=== PATIENT | female | born 1950 | race Asian ===

== ENCOUNTER 2017-05-07 09:40 | Outpatient (CLI) | payer MEDICARE, OTHER ==
[2017-05-07 12:55] LABS: HEMOGLOBIN A1C 0.68 g/dL
== END 2017-05-07 09:41 | disposition home or self-care (01) ==
LOC: LAB.WCP 09:40
PROVIDERS: ATTEND Family Medicine
DX: E11.9 Type 2 diabetes mellitus without complications (principal)
CPT/HCPCS: 36415; 83036

== ENCOUNTER 2018-04-12 08:00 | Outpatient (CLI) | payer MEDICARE, OTHER ==
[2018-04-12 13:02] LABS: BASOPHILS % (AUTO) 0.9 %; EOSINOPHILS # (AUTO) 0.3 10^3/uL (0.0-0.7); EOSINOPHILS % (AUTO) 6.1 %; HGB - HEMOGLOBIN 12.5 g/dL (12.0-16.0); LYMPHOCYTES # (AUTO) 1.4 10^3/uL (1.5-3.5); LYMPHOCYTES % (AUTO) 25.7 %; MEAN CORPUSCULAR HEMOGLOBIN 28.6 pg (27.0-31.0); MEAN CORPUSCULAR HGB CONC 33.2 g/dL (32.0-36.0); MEAN CORPUSCULAR VOLUME 86.2 fL (81.0-99.0); MEAN PLATELET VOLUME 8.3 fL (7.9-10.8); MONOCYTES # (AUTO) 0.4 10^3/uL (0.0-1.0); MONOCYTES % (AUTO) 6.8 %; NEUTROPHILS # (AUTO) 3.2 10^3/uL (1.5-6.6); NEUTROPHILS % (AUTO) 60.5 %; PLT - PLATELET COUNT 171 10^3/uL (130-450); RED BLOOD COUNT 4.38 10^6/uL (4.20-5.40); RED CELL DISTRIBUTION WIDTH 13.7 % (12.0-15.0); WHITE BLOOD COUNT 5.3 x10^3/uL (4.8-10.8)
[2018-04-12 13:36] LABS: ALBUMIN 4.1 g/dL (3.2-5.5); ALBUMIN/GLOBULIN RATIO 1.2 (1.0-2.2); ALKALINE PHOSPHATASE 44 IU/L (42-121); ALT ALANINE AMINOTRANSFERASE 23 IU/L (10-60); AST ASPARTATE AMINOTRANSFERASE 23 IU/L (10-42); BILIRUBIN,TOTAL 0.7 mg/dL (0.2-1.0); BUN - BLOOD UREA NITROGEN 15 mg/dL (6-20); CARBON DIOXIDE - CO2 26 mmol/L (21-32); CHLORIDE 102 mmol/L (101-111); CHOL/HDL RATIO 3.7 (<4.4); CHOLESTEROL 149 mg/dL; CREATININE 0.8 mg/dL (0.4-1.0); GFR - MDRD 71 (>89); GLUCOSE 126 mg/dL (70-100); HDL CHOLESTEROL 40 mg/dL; LDL CHOLESTEROL,CALCULATED 84 mg/dL; LDL/HDL RATIO 2.1 (<4.4); SODIUM 137 mmol/L (135-145); TOTAL PROTEIN 7.4 g/dL (6.7-8.2); VLDL CHOLESTEROL 25 mg/dL
[2018-04-12 13:49] LABS: HB2 TOTAL 13.5 g/dL; HEMOGLOBIN A1C 0.74 g/dL; HEMOGLOBIN A1C % 7.2 % (4.6-6.2)
== END 2018-04-12 08:01 ==
LOC: LAB.WCP 08:00
PROVIDERS: ATTEND Family Medicine
DX: I10 Essential (primary) hypertension (principal); R73.01 Impaired fasting glucose; E78.9 Disorder of lipoprotein metabolism, unspecified
CPT/HCPCS: 36415; 80053; 80061; 83036; 83721; 85025

== ENCOUNTER 2018-09-10 09:00 | Outpatient (CLI) | payer MEDICARE, OTHER ==
[2018-09-10 13:14] LABS: ALBUMIN 4.1 g/dL (3.2-5.5); ALBUMIN/GLOBULIN RATIO 1.2 (1.0-2.2); BILIRUBIN,TOTAL 0.7 mg/dL (0.2-1.0); CREATININE 0.8 mg/dL (0.4-1.0); TOTAL PROTEIN 7.5 g/dL (6.7-8.2)
[2018-09-10 13:28] LABS: HB2 TOTAL 12.8 g/dL; HEMOGLOBIN A1C 0.7 g/dL; HEMOGLOBIN A1C % 7.2 % (4.6-6.2)
[2018-09-10 14:18] LABS: CALCIUM 8.8 mg/dL (8.5-10.3)
== END 2018-09-10 09:01 | disposition home or self-care (01) ==
LOC: LAB.WCP 09:00
PROVIDERS: ATTEND Family Medicine
DX: E11.9 Type 2 diabetes mellitus without complications (principal)
CPT/HCPCS: 36415; 80053; 82043; 83036

== ENCOUNTER 2018-12-23 06:07 | Day surgery (SDC) | payer MEDICARE, OTHER ==
[2018-12-23] MEDS ORDERED: LACTATED RINGERS 1,000 ML IV ONE (06:32)
[2018-12-23] MEDS ORDERED: MIDAZOLAM 2 MG/2 ML VIAL IVP ONE (08:04)
[2018-12-23] MEDS ORDERED: fentaNYL 250 MCG/5 ML VIAL IVP ONE (08:04)
[2018-12-23 08:40] VITALS: BP 114/69
== END 2018-12-23 06:08 | disposition home or self-care (01) ==
LOC: SDS 06:07
PROVIDERS: ATTEND Surgery
PROC: 0DJD8ZZ Inspection of Lower Intestinal Tract, Via Natural or Artificial Opening Endoscopic (ICD-10-PCS; principal; 2018-12-23 07:30)
DX: Z12.11 Encounter for screening for malignant neoplasm of colon (principal); K64.8 Other hemorrhoids; I10 Essential (primary) hypertension; I25.10 Atherosclerotic heart disease of native coronary artery without angina pectoris
CPT/HCPCS: G0121; J3010; J7120

== ENCOUNTER 2019-04-14 09:38 | Outpatient (CLI) | payer MEDICARE, OTHER ==
[2019-04-14 12:16] LABS: ALBUMIN 4.3 g/dL (3.2-5.5); ALBUMIN/GLOBULIN RATIO 1.3 (1.0-2.2); BILIRUBIN,TOTAL 0.6 mg/dL (0.2-1.0); CALCIUM 9.2 mg/dL (8.5-10.3); CREATININE 0.7 mg/dL (0.4-1.0); TOTAL PROTEIN 7.7 g/dL (6.7-8.2)
[2019-04-14 13:42] LABS: HB2 TOTAL 13.2 g/dL; HEMOGLOBIN A1C 0.66 g/dL; HEMOGLOBIN A1C % 6.7 % (4.6-6.2)
== END 2019-04-14 09:39 | disposition home or self-care (01) ==
LOC: LAB.WCP 09:38
PROVIDERS: ATTEND Family Medicine
DX: E11.9 Type 2 diabetes mellitus without complications (principal); E78.5 Hyperlipidemia, unspecified; I10 Essential (primary) hypertension; I25.10 Atherosclerotic heart disease of native coronary artery without angina pectoris
CPT/HCPCS: 36415; 80053; 82043; 83036

== ENCOUNTER 2019-08-08 09:15 | Outpatient (CLI) | payer MEDICARE, OTHER ==
[2019-08-08 13:00] LABS: HB2 TOTAL 11.9 g/dL; HEMOGLOBIN A1C 0.58 g/dL; HEMOGLOBIN A1C % 6.6 % (4.6-6.2)
[2019-08-08 13:06] LABS: ALBUMIN 4.1 g/dL (3.2-5.5); ALBUMIN/GLOBULIN RATIO 1.2 (1.0-2.2); ALKALINE PHOSPHATASE 49 IU/L (42-121); ALT ALANINE AMINOTRANSFERASE 17 IU/L (10-60); AST ASPARTATE AMINOTRANSFERASE 19 IU/L (10-42); BILIRUBIN,TOTAL 0.5 mg/dL (0.2-1.0); BUN - BLOOD UREA NITROGEN 27 mg/dL (6-20); CALCIUM 9.4 mg/dL (8.5-10.3); CARBON DIOXIDE - CO2 25 mmol/L (21-32); CHLORIDE 106 mmol/L (101-111); CHOL/HDL RATIO 4.1 (<4.4); CHOLESTEROL 161 mg/dL; CREATININE 1.2 mg/dL (0.4-1.0); GFR - MDRD 44 (>89); GLUCOSE 113 mg/dL (70-100); HDL CHOLESTEROL 39 mg/dL; LDL CHOLESTEROL,CALCULATED 90 mg/dL; LDL/HDL RATIO 2.3 (<4.4); SODIUM 139 mmol/L (135-145); TOTAL PROTEIN 7.5 g/dL (6.7-8.2); VLDL CHOLESTEROL 32 mg/dL
== END 2019-08-08 09:16 | disposition home or self-care (01) ==
LOC: LAB.WCP 09:15
PROVIDERS: ATTEND Family Medicine
DX: M17.12 Unilateral primary osteoarthritis, left knee (principal); E11.9 Type 2 diabetes mellitus without complications; I10 Essential (primary) hypertension; I25.10 Atherosclerotic heart disease of native coronary artery without angina pectoris
CPT/HCPCS: 36415; 80053; 80061; 83036; 83721

== ENCOUNTER 2020-01-16 14:29 | Outpatient (CLI) | payer MEDICARE, OTHER ==
--- NOTE | 2020-01-27 16:01 | Mammography Report ---
Reason: ROUTINE MAMMO Procedure Date: 01/16/2020 Accession Number: [id number] / [id number] Procedure: MGN - Screening Mammo w/Varinder CPT Code: Final Report FULL RESULT: EXAM: Screening Mammo w/Varinder DATE: 01/16/2020 3:06 PM CLINICAL HISTORY: Screening encounter. Family history of breast cancer in the mother at the age of 84. TECHNIQUE: (B) - Bilateral CC and MLO views were obtained. Right laterally exaggerated CC view is obtained. COMPARISON: 11/25/2014 through 03/01/2012. PARENCHYMAL PATTERN: (A) - The breast(s) demonstrate(s) scattered fibroglandular densities. FINDINGS: There are no suspicious masses, calcifications, or areas of distortion. IMPRESSION: Negative examination. BI-RADS category 1. RECOMMENDATION: (ANNUAL) - Recommend routine annual screening mammography. BI-RADS CATEGORY: (1) - Negative. STANDARD QUALIFYING STATEMENTS: 1. This examination was not reviewed with the aid of Computer-Aided Detection (CAD). 2. A negative or benign imaging report should not preclude biopsy if clinically suspicious findings are present. 3. Dense breasts may obscure an underlying neoplasm. 4. This examination was reviewed with the aid of 3D breast imaging (tomosynthesis).
== END 2020-01-16 14:30 | disposition home or self-care (01) ==
LOC: DI.N 14:29
DX: Z12.31 Encounter for screening mammogram for malignant neoplasm of breast (principal); Z80.3 Family history of malignant neoplasm of breast
CPT/HCPCS: 77063; 77067

== ENCOUNTER 2020-01-27 08:00 | Outpatient (CLI) | payer MEDICARE, OTHER | END 2020-01-27 23:59 | disposition home or self-care (01) | LOC: LAB.WCP 08:00 | PROVIDERS: ATTEND Family Medicine | DX: N39.0 Urinary tract infection, site not specified (principal) | CPT/HCPCS: 81002; 87086 ==

== ENCOUNTER 2020-01-27 14:30 | Outpatient (CLI) | payer MEDICARE, OTHER | END 2020-01-27 23:59 | disposition home or self-care (01) | LOC: LAB.R 14:30 | PROVIDERS: ATTEND Family Medicine | DX: N39.0 Urinary tract infection, site not specified (principal) | CPT/HCPCS: 87086 ==

== ENCOUNTER 2020-03-26 08:00 | Outpatient (CLI) | payer MEDICARE, OTHER ==
[2020-03-26 13:17] LABS: BASOPHILS % (AUTO) 0.6 %; EOSINOPHILS # (AUTO) 0.2 10^3/uL (0.0-0.7); EOSINOPHILS % (AUTO) 2.4 %; HGB - HEMOGLOBIN 11.8 g/dL (12.0-16.0); LYMPHOCYTES # (AUTO) 1.8 10^3/uL (1.5-3.5); LYMPHOCYTES % (AUTO) 28.3 %; MEAN CORPUSCULAR HEMOGLOBIN 29.6 pg (27.0-31.0); MEAN CORPUSCULAR HGB CONC 32.3 g/dL (32.0-36.0); MEAN CORPUSCULAR VOLUME 91.7 fL (81.0-99.0); MEAN PLATELET VOLUME 10.3 fL (7.9-10.8); MONOCYTES # (AUTO) 0.4 10^3/uL (0.0-1.0); MONOCYTES % (AUTO) 6.8 %; NEUTROPHILS # (AUTO) 3.9 10^3/uL (1.5-6.6); NEUTROPHILS % (AUTO) 61.7 %; PLT - PLATELET COUNT 217 10^3/uL (130-450); RED BLOOD COUNT 3.98 10^6/uL (4.20-5.40); RED CELL DISTRIBUTION WIDTH 12.4 % (12.0-15.0); WHITE BLOOD COUNT 6.3 x10^3/uL (4.8-10.8)
[2020-03-26 13:32] LABS: ALBUMIN 4.2 g/dL (3.2-5.5); ALBUMIN/GLOBULIN RATIO 1.3 (1.0-2.2); BILIRUBIN,TOTAL 0.5 mg/dL (0.2-1.0); CALCIUM 9.2 mg/dL (8.5-10.3); TOTAL PROTEIN 7.5 g/dL (6.7-8.2)
== END 2020-03-26 23:59 | disposition home or self-care (01) ==
LOC: LAB.WCP 08:00
PROVIDERS: ATTEND Family Medicine
DX: I10 Essential (primary) hypertension (principal); E11.9 Type 2 diabetes mellitus without complications; I25.10 Atherosclerotic heart disease of native coronary artery without angina pectoris; E78.5 Hyperlipidemia, unspecified
CPT/HCPCS: 36415; 80053; 84443; 85025

== ENCOUNTER 2020-07-14 15:38 | Outpatient (CLI) | payer MEDICARE, OTHER ==
--- NOTE | 2020-07-14 16:48 | XRAY Report ---
PROCEDURE: Knee Standing BILAT INDICATIONS: BILAT KNEE ARTHRITIS TECHNIQUE: 4 views of the bilateral knees, COMPARISON: Left knee . FINDINGS: Bones: No acute fractures or dislocations. No suspicious bony lesions. Joint spaces appear normal with weightbearing, to a moderately severe degree. This is slightly more prominent at the left knee t shepard the right on the frontal projection. On the lateral view there is mild to moderate patellofemoral joint osteoarthritis.. Soft tissues: No knee joint effusions. No suspicious soft tissue calcification. IMPRESSION: Near severe knee joint osteoarthritis at each medial compartment slightly greater on the left than th e right. No joint effusion or intra-articular loose body is found. Bilateral mild to moderate patello femoral joint osteoarthritis also is present. No trauma found. Reviewed by: Sunday Patel MD on 07/14/2020 4:47 PM PDT Approved by: Sunday Patel MD on 07/14/2020 4:47 PM PDT Station ID: [id number]
== END 2020-07-14 15:39 | disposition home or self-care (01) ==
LOC: DI.N 15:38
PROVIDERS: ATTEND Family Medicine
DX: M17.0 Bilateral primary osteoarthritis of knee (principal)
CPT/HCPCS: 73565

== ENCOUNTER 2020-07-21 11:40 | Outpatient (CLI) | payer MEDICARE, OTHER ==
[2020-07-21 18:41] LABS: HGB - HEMOGLOBIN 11.7 g/dL (12.0-16.0); MEAN CORPUSCULAR HGB CONC 32.7 g/dL (32.0-36.0); MEAN CORPUSCULAR VOLUME 91.8 fL (81.0-99.0); MEAN PLATELET VOLUME 9.7 fL (7.9-10.8); RED BLOOD COUNT 3.9 10^6/uL (4.20-5.40); RED CELL DISTRIBUTION WIDTH 12.6 % (12.0-15.0); WHITE BLOOD COUNT 7.2 x10^3/uL (4.8-10.8)
[2020-07-21 18:51] LABS: BILIRUBIN,URINE NEGATIVE (NEGATIVE); GLUCOSE, URINE (UA) NEGATIVE (NEGATIVE); KETONES,URINE (UA) NEGATIVE (NEGATIVE); LEUKOCYTE ESTERASE, URINE SMALL (NEGATIVE); NITRITE,URINE NEGATIVE (NEGATIVE); OCCULT BLOOD,URINE NEGATIVE (NEGATIVE); PROTEIN,URINE NEGATIVE (NEGATIVE); UROBILINOGEN,URINE 0.2 (NORMAL) E.U./dL (NORMAL)
[2020-07-21 18:52] LABS: CLARITY,URINE CLEAR (CLEAR)
[2020-07-21 18:54] LABS: RHEUMATOID FACTOR NEGATIVE (Negative)
[2020-07-21 18:58] LABS: ALBUMIN 4.2 g/dL (3.2-5.5); ALBUMIN/GLOBULIN RATIO 1.1 (1.0-2.2); ALKALINE PHOSPHATASE 59 IU/L (42-121); ALT ALANINE AMINOTRANSFERASE 19 IU/L (10-60); AST ASPARTATE AMINOTRANSFERASE 20 IU/L (10-42); BILIRUBIN,TOTAL 0.6 mg/dL (0.2-1.0); BUN - BLOOD UREA NITROGEN 18 mg/dL (6-20); CALCIUM 9.5 mg/dL (8.5-10.3); CARBON DIOXIDE - CO2 24 mmol/L (21-32); CHLORIDE 97 mmol/L (101-111); CHOL/HDL RATIO 2.9 (<4.4); CHOLESTEROL 145 mg/dL; CREATININE 0.9 mg/dL (0.4-1.0); GLUCOSE 100 mg/dL (70-100); HDL CHOLESTEROL 50 mg/dL; LDL CHOLESTEROL,CALCULATED 77 mg/dL; LDL/HDL RATIO 1.5 (<4.4); SODIUM 130 mmol/L (135-145); TOTAL PROTEIN 7.9 g/dL (6.7-8.2); URIC ACID 6.5 mg/dL (2.6-7.2); VLDL CHOLESTEROL 18 mg/dL
[2020-07-21 19:01] LABS: CRP - C-REACTIVE PROTEIN < 1.0 mg/dL (0-1.0)
[2020-07-21 19:02] LABS: CREATININE,URINE 98.7 mg/dL; MICROALBUMIN,URINE 0.3 mg/dL (0-300.0)
[2020-07-21 19:20] LABS: HEMOGLOBIN A1c% 6.6 % (4.27-6.07)
[2020-07-21 19:29] LABS: BACTERIA,URINE Many /HPF (None Seen); SQUAMOUS EPITHELIAL CELL,UR FEW Squamous (<= Few); WBC CLUMPS,URINE PRESENT
[2020-07-23 10:57] LABS: ANA SCREEN NEGATIVE (NEGATIVE)
[2020-07-23 13:26] LABS: DNA (DS) ANTIBODY 1 IU/mL
[2020-07-23 18:41] LABS: CYCLIC CITRULL PEPTIDE CCP IGG <16 UNITS
== END 2020-07-21 23:59 | disposition home or self-care (01) ==
LOC: LAB.WCP 11:40
PROVIDERS: ATTEND Family Medicine
DX: E11.9 Type 2 diabetes mellitus without complications (principal); R21 Rash and other nonspecific skin eruption
CPT/HCPCS: 36415; 80053; 80061; 81001; 82043; 82570; 83036; 83721; 84550; 85027; 85651; 86038; 86140; 86200; 86225; 86430

== ENCOUNTER 2021-02-02 08:00 | Outpatient (CLI) | payer MEDICARE, OTHER ==
[2021-02-02 18:18] LABS: BASOPHILS % (AUTO) 0.5 %; EOSINOPHILS # (AUTO) 0.1 10^3/uL (0.0-0.7); EOSINOPHILS % (AUTO) 2.4 %; HCT - HEMATOCRIT 36.8 % (37.0-47.0); HGB - HEMOGLOBIN 11.9 g/dL (12.0-16.0); LYMPHOCYTES # (AUTO) 1.7 10^3/uL (1.5-3.5); LYMPHOCYTES % (AUTO) 28.5 %; MEAN CORPUSCULAR HEMOGLOBIN 29.8 pg (27.0-31.0); MEAN CORPUSCULAR HGB CONC 32.3 g/dL (32.0-36.0); MONOCYTES # (AUTO) 0.4 10^3/uL (0.0-1.0); MONOCYTES % (AUTO) 6.7 %; NEUTROPHILS # (AUTO) 3.6 10^3/uL (1.5-6.6); NEUTROPHILS % (AUTO) 61.7 %; PLT - PLATELET COUNT 194 10^3/uL (130-450); RED CELL DISTRIBUTION WIDTH 12.1 % (12.0-15.0); WHITE BLOOD COUNT 5.8 x10^3/uL (4.8-10.8)
[2021-02-02 18:53] LABS: ESTIMATED AVERAGE GLUCOSE 143 mg/dL (70-100); HEMOGLOBIN A1c% 6.6 % (4.27-6.07)
[2021-02-02 19:06] LABS: ALBUMIN 4.2 g/dL (3.2-5.5); ALBUMIN/GLOBULIN RATIO 1.2 (1.0-2.2); ALKALINE PHOSPHATASE 47 IU/L (42-121); ALT ALANINE AMINOTRANSFERASE 16 IU/L (10-60); AST ASPARTATE AMINOTRANSFERASE 20 IU/L (10-42); BILIRUBIN,TOTAL 0.8 mg/dL (0.2-1.0); BUN - BLOOD UREA NITROGEN 28 mg/dL (6-20); CALCIUM 10.1 mg/dL (8.5-10.3); CARBON DIOXIDE - CO2 29 mmol/L (21-32); CHLORIDE 98 mmol/L (101-111); CHOL/HDL RATIO 3.7 (<4.4); CHOLESTEROL 158 mg/dL; CREATININE 1.1 mg/dL (0.4-1.0); GFR - MDRD 49 (>89); GLUCOSE 93 mg/dL (70-100); HDL CHOLESTEROL 43 mg/dL; LDL CHOLESTEROL,CALCULATED 87 mg/dL; POTASSIUM 4.5 mmol/L (3.5-5.0); SODIUM 137 mmol/L (135-145); TOTAL PROTEIN 7.7 g/dL (6.7-8.2); TRIGLYCERIDES 139 mg/dL; VLDL CHOLESTEROL 28 mg/dL
== END 2021-02-02 23:59 | disposition home or self-care (01) ==
LOC: LAB.WCP 08:00
PROVIDERS: ATTEND Family Medicine
DX: E11.9 Type 2 diabetes mellitus without complications (principal)
CPT/HCPCS: 36415; 80053; 80061; 83036; 83721; 85025

== ENCOUNTER 2021-02-04 11:01 | Outpatient (CLI) | payer MEDICARE, OTHER | END 2021-02-04 11:02 | disposition home or self-care (01) | LOC: LAB.N 11:01 | PROVIDERS: ATTEND Orthopaedic Surgery | DX: Z01.812 Encounter for preprocedural laboratory examination (principal); Z20.822 Contact with and (suspected) exposure to COVID-19 ==

== ENCOUNTER 2021-02-09 07:17 | Day surgery (SDC) | payer MEDICARE, OTHER ==
[~2021-02-09 07:17] MED LIST: ACETAMINOPHEN 1,000 MG/100 ML 100 ML IV ONE; CELECOXIB 100 MG CAPSULE PO ONE; DEXAMETHASONE 10 MG/ML VIAL ONE; ceFAZolin 2 GM/50 ML 2 GM/50 ML BAG IV ONE
[2021-02-09] MEDS ORDERED: LACTATED RINGERS 1,000 ML IV ONE ×2 (07:29→12:04)
[2021-02-09] MEDS ORDERED: VANCOMYCIN 1 GM VIAL ONE ×2 (07:38→08:13)
--- NOTE | 2021-02-09 07:50 | ANESTHESIA ---
Pre-Anesthesia VS, & Labs - Diagnosis Osteoarthritis of knee - Procedure Left Total Knee Arthroscopy Vital Signs: Temp Pulse Resp BP Pulse Ox 36.9 C 61 16 144/67 H 99 02/09/21 07:36 02/09/21 07:36 02/09/21 07:36 02/09/21 07:36 02/09/21 07:36 Height: 5 ft Weight (kg): 66.8 kg Body Mass Index: 28.8 BMI Classification: Overweight - NPO >8 hours - Is Patient ?: No - Lab Results Lab results reviewed: Yes Home Medications and Allergies Aspirin [Jeromy Chewable] 81 mg PO DAILY 08/06/14 Atorvastatin Calcium [Lipitor] 80 mg PO DAILY 08/06/14 Carvedilol [Coreg] 25 mg PO DAILY 08/06/14 Fish Oil/Dha/Epa [Fish Oil 1,200 mg Fish Oil] 1 each PO DAILY 08/06/14 Hydrochlorothiazide 25 mg PO DAILY 08/06/14 Losartan [Cozaar] 100 mg PO DAILY 08/06/14 Truheart 1 cap PO Q2D 04/22/15 SITagliptin [Januvia] 100 mg PO DAILY 12/20/18 metFORMIN [Glucophage] 500 mg PO TID 12/20/18 Allergies/Adverse Reactions: Allergies Allergy/AdvReac Type Severity Reaction Status Date / Time No Known Drug Allergies Allergy Verified 12/23/18 06:39 Anes History & Medical History - Anesthetic History Anesthesia Complications: reports: No previous complications Family history of Anesthesia Complications: Denies Family history of Malignant Hyperthermia: Denies - Medical History Cardiovascular: reports: Hypertension, High cholesterol, Coronary artery disease Pulmonary: reports: None Gastrointestinal: reports: None Urinary: reports: Incontinence Musculoskeletal: reports: Other Endocrine/Autoimmune: reports: Type 2 diabetes Skin: reports: None Smoking Status: Never smoker - Surgical History Cardiothoracic: reports: Coronary stent, Angioplasty Exam General: Alert, Oriented x3, Cooperative, No acute distress Dental: WNL Mouth Openin Fingerbreadth Neck Mobility: Normal Mallampati classification: II Respiratory: Lungs clear, Normal breath sounds, No respiratory distress, No accessory muscle use Cardiovascular: Regular rate, Normal S1, Normal S2, No murmurs Plan Anesthesia Type: Spinal, Adductor Block Regional Block: Per Surgeon's request for Post Op pain control Consent for Procedure(s) Verified and Reviewed: Yes Code Status: Attempt Resuscitation ASA classification: 3-Severe systemic disease Is this case an emergency?: No
[2021-02-09] MEDS ORDERED: HYDROmorphone 0.5 MG/0.5 ML SYRINGE IVP PRN (08:25)
[2021-02-09] MEDS ORDERED: ONDANSETRON 4 MG/2 ML VIAL IVP PRN ×2 (08:25→12:07)
[2021-02-09] MEDS ORDERED: ePHEDrine 50 MG/ML VIAL IVP PRN (08:25)
[2021-02-09] MEDS ORDERED: fentaNYL 100 MCG/2 ML VIAL IVP PRN (08:25)
[2021-02-09] MEDS ORDERED: MORPHINE 2 MG/ML CARPUJECT IVP PRN (08:25)
[2021-02-09] MEDS ORDERED: METOCLOPRAMIDE 10 MG/2 ML VIAL IVP PRN (08:25)
[2021-02-09] MEDS ORDERED: ATROPINE ABBOJECT 1 MG/10 ML SYRINGE IVP PRN (08:25)
[2021-02-09] MEDS ORDERED: NALOXONE 0.4 MG/ML VIAL IVP PRN (08:25)
[2021-02-09] MEDS ORDERED: KETAMINE 500 MG/10 ML VIAL ONE (08:41)
[2021-02-09] MEDS ORDERED: SODIUM CHLORIDE 0.9% 10 ML ONE (08:42)
[2021-02-09] MEDS ORDERED: TRANEXAMIC ACID 1,000 MG/10 ML VIAL ONE ×2 (08:44→11:40)
[2021-02-09] MEDS ORDERED: ONDANSETRON 4 MG/2 ML VIAL ONE ×2 (08:50→09:41)
[2021-02-09] MEDS ORDERED: MIDAZOLAM 2 MG/2 ML VIAL ONE (08:51)
[2021-02-09] MEDS ORDERED: LACTATED RINGERS 1,000 ML IV SCH (09:00)
[2021-02-09] MEDS ORDERED: PROPOFOL 500 MG/50 ML 500 MG/50 ML VIAL ONE (09:41)
[2021-02-09] MEDS ORDERED: ePHEDrine 50 MG/ML VIAL IVP ONE (09:41)
--- NOTE | 2021-02-09 11:41 | OPERATIVE REPORT ---
Operative Report - General Procedure Date: 02/09/21 Planned Procedure: Left total knee arthroplasty Pre-Op Diagnosis: Varus osteoarthritis left knee Procedure Performed: Left total knee arthroplasty using the Davis [employer] Nephew journey 2 cemented cruciate retaining femoral and tibial components: #4 Oxinium femoral component, #3 tibial baseplate, 9 mm deep dish articular polyethylene component, 23 mm by concave patella; Davis [employer] Nephew antibiotic impregnated cement Post Op Diagnosis: Same as preoperative diagnosis - Procedure Note Primary Surgeon: Saul Martin MD Secondary Surgeon: Rickey CHA Anesthesia Provider: Xiomy Garland CRNA Anesthesia Technique: Regional block, Spinal Estimated Blood Loss (mL): 150 Indications: 71-year-old woman with chronic and progressive activity related pain, unresponsive to nonoperative treatment, affecting activities of daily living and quality of life. She had varus deformity with about a 10 to 15 degree flexion contracture to left knee, good stability and strength. The varus deformity was fixed. Her x-rays show complete loss of joint space to the medial compartment of the left knee, relative sparing of the lateral compartment. Findings: There were eburnated bone surfaces to the medial compartment with osteophytes patellofemoral and medial compartment. There was nonspecific synovitis in the suprapatellar pouch. The posterior cruciate was intact. The anterior cruciate was markedly attenuated. The lateral meniscus was torn. Complications: None - Other Other Information/Narrative: Left total knee arthroplasty The patient was brought to the operating room and was placed in a supine position. She was given a adductor canal block by anesthesia. A pneumatic tourniquet was applied to the proximal left thigh over cast padding. This was a conical shaped Avelino thigh tourniquet that was sterile. A bump was placed on the operating room table to facilitate knee flexion of the left knee during surgery. A timeout procedure was performed by the entire operating room team and all were in agreement. A midline longitudinal incision was made with the knee in flexion. A medial parapatellar arthrotomy was made. The anterior horn of medial and lateral menisci were released and part of patellar fat pad was excised. The knee was flexed and the patella was dislocated laterally. A drill hole was made in the intramedullary notch with a 9.5 mm drill. Osteophytes about the proximal tibia and femur had been removed with a rongeur. The distal femoral cutting guide was aligned parallel to the posterior condyles. The intramedullary ross and guide was advanced and the distal femoral guide was stabilized with half pins. The distal 5 degrees valgus cut was made through the distal femoral guide, plus 2mm to compensate for the flexion contracture. Next the extra medullary tibial guide was assembled and applied and aligned to the mechanical axis in both sagittal and coronal planes. Tibial referencing was done to allow 3 mm of bone from the most affected side and 10 mm from the least affected side. The tibial guide was stabilized with half pins. Retractors were placed medially and laterally to protect the collateral ligaments and a retractor was placed directly against the posterior bone to sublux the tibia anteriorly. An oscillating saw was used to make the tibial proximal cut. The tibial block was removed as a single piece and the menisci were removed as well. The extension gap was assessed with a extension block spacer using a 10 mm spacer and this was found to fit well as well as the 9 mm spacer block with the knee in 90 degrees of flexion. Next the femoral positioning guide was applied and aligned to the epicondylar axis and Niharika line. This was secured in place with approximately 3 degrees of external rotation. The size of the femur at the anterior lateral trochlea was a #4. Drill holes were made in the 5 and 1 #4 cutting block was inserted and secured. The 5 cuts were made to the captured block using oscillating saw. The flexion gap was assessed with the 10 mm spacer and was found to fit well. The patella was then prepared. A biconvex patellar reamer was used. The tibial trial #3 was then applied to the tibia and aligned to the mechanical axis. The punch fin was utilized. Trial reduction was performed with the femoral and tibial components in place. Notch resection was then through the trial component. Pulsatile lavage was performed. A tourniquet was applied during the cementing process. The components were inserted sequentially: Tibia, femur and lastly patellar component. Excess cement was removed and the knee was placed in extension during the hardening. Dilute Betadine irrigation was performed. The knee had full range of motion, good patellar tracking. There was good stability of the knee in full extension mid flexion and 90 degrees of flexion. There was good alignment of the left knee. The tourniquet had been deflated and had been in place for 16 minutes. Hemostasis was achieved with electrocautery. Vancomycin powder, 2 g was inserted prior to the deep closure. The deep closure was performed with #2 Ethibond proximal and distal to the patella with the knee in 40 degrees of flexion. 1 O stratofix suture was then used to close the arthrotomy incision. 2-0 Vicryl was used to close the subcutaneous tissue. 3-0 Monocryl was used to do a subcuticular skin closure. Dermabond was applied to the skin incision. After the Dermabond had hardened, a silver impregnated dressing was applied. She tolerated the procedure well and received 2 g of Ancef intravenously and 2 g of tranexamic acid. A physician unit assistant was medically necessary to help with exposure, protection of vital structures, cementing, wound closure and dressing
[2021-02-09] MEDS ORDERED: oxyCODONE 5 MG TABLET PO PRN (12:07)
[2021-02-09] MEDS ORDERED: SODIUM CHLORIDE FLUSH 0.9% 10 ML SYRINGE IVP PRN (12:07)
[2021-02-09] MEDS ORDERED: DOCUSATE SODIUM 100 MG CAPSULE PO PRN (12:07)
[2021-02-09] MEDS ORDERED: HYDROmorphone 1 MG/ML CARPUJECT IVP PRN (12:07)
[2021-02-09] MEDS ORDERED: DEXAMETHASONE 4 MG/ML VIAL ONE (12:13)
--- NOTE | 2021-02-09 13:06 | CONSULTATION NOTE ---
Referring Provider Name of Referring Provider:: Dr. Saul Martin Consult Date: 02/09/21 Chief Complaint - Chief Complaint Chief Complaint: Left knee pain History of Present Illness - Admitted From Admitted From:: Home - History Obtained From Records Reviewed: Yes History obtained from: Patient, Orthopedic surgeon, EMR - History of Present Illness HPI Comment/Other: This is a 71-year-old female with a past medical history significant for coronary artery disease, type 2 diabetes mellitus, hypertension who presents today for a left total knee arthroplasty. This was performed this morning by orthopedic surgery. Medicine was consulted postoperatively to help assist with the patient's medical problems. She reports doing well at this time. She has minimal pain at the left knee. She reports no chest pain, dyspnea. She does have sensation in her left lower extremity is able to move her toes. Reports a history of coronary artery disease with her last stent being over 15 years ago. She is on aspirin daily. She also has hypertension and diabetes which is controlled with Metformin and Januvia. We did discuss goals of care and she would like to be a full code. History - Past Medical History Cardiovascular: reports: Hypertension, High cholesterol, Coronary artery disease Respiratory: reports: None Endocrine/Autoimmune: reports: Type 2 diabetes GI: reports: None : reports: Incontinence Psych: reports: None Musculoskeletal: reports: Other Derm: reports: None MRSA Hx?: No - Past Surgical History Cardiovascular: reports: Coronary stent, Angioplasty - Family & Social History Family History Comment/Other: She reports no family history to her knowledge. Both of her parents are . Living arrangement: At home Living Situation: With family Social History Notes: She lives at home with her and daughter. She is a non-smoker and does not drink alcohol. Meds/Allgy - Home Medications Home Medications: Ambulatory Orders Medication Instructions Recorded Confirmed Atorvastatin Calcium [Lipitor] 80 mg PO DAILY 08/06/14 02/09/21 Carvedilol [Coreg] 25 mg PO BID 08/06/14 02/09/21 Fish Oil/Dha/Epa [Fish Oil 1,200 1 each PO DAILY 08/06/14 02/09/21 mg Fish Oil] Hydrochlorothiazide 25 mg PO DAILY 08/06/14 02/09/21 Losartan [Cozaar] 100 mg PO BID 08/06/14 02/09/21 SITagliptin [Januvia] 100 mg PO DAILY 12/20/18 02/09/21 metFORMIN [Glucophage] 500 mg PO TID 12/20/18 02/09/21 Aspirin EC [Ecotrin] 81 mg PO DAILY 02/09/21 02/09/21 Calcium Carbonate/Vitamin D3 1 each PO DAILY 02/09/21 02/09/21 [Calcium 600-Vit D3 200 Tablet] Cholecalciferol [Vitamin D3] 25 mcg PO DAILY 02/09/21 02/09/21 Magnesium Oxide [Mag Ox] 400 mg PO HS 02/09/21 02/09/21 Spironolactone [Aldactone] 25 mg PO DAILY 02/09/21 02/09/21 - Allergies Allergies/Adverse Reactions: Allergies Allergy/AdvReac Type Severity Reaction Status Date / Time No Known Drug Allergies Allergy Verified 12/23/18 06:39 Review of Systems - Constitutional Constitutional: denies: Fever, Chills - Cardiovascular Cariovascular: denies: Chest pain, Edema, Exertional dyspnea, Decr. exercise tolerance - Respiratory Respiratory: denies: SOB at rest, SOB with exertion - Gastrointestinal Gastrointestinal: denies: Abdominal pain, Nausea, Vomiting - Genitourinary Genitourinary: denies: Dysuria - Musculoskeletal Musculoskeletal: reports: Limited range of motion, Joint pain - Neurological Neurological: denies: General weakness, Focal weakness, Numbness - All Other Systems All Other Systems: reports: Reviewed and negative Exam - Vital Signs Reviewed Vital Signs: Yes Vital Signs: Vital Signs x48h Temp Pulse Resp BP Pulse Ox 02/09/21 12:50 36.6 C 70 18 122/80 97 02/09/21 12:40 65 17 124/66 95 02/09/21 12:30 72 18 123/71 97 02/09/21 12:25 37.0 C 71 19 120/72 96 02/09/21 12:20 67 19 133/72 H 99 02/09/21 12:14 37.0 C 68 18 124/74 99 02/09/21 07:36 36.9 C 61 16 144/67 H 99 - Physical Exam General Appearance: positive: No acute distress, Alert Eyes Bilateral: positive: Normal inspection, Conjunctivae nml ENT: positive: ENT inspection nml Neck: positive: Nml inspection Respiratory: positive: No respiratory distress. negative: Wheezes, Rales Cardiovascular: positive: Regular rate & rhythm, No murmur. negative: Tachycardia Abdomen: positive: Non-tender, No distention. negative: Tenderness Skin: positive: Warm, Dry Extremities: positive: No pedal edema, Other (Dressing is in place over the left knee. Dorsalis pedis pulses noted.) Neurologic/Psychiatric: positive: Other (Sensation is intact in the left lower extremity.). negative: Disoriented to person, Disoriented to place Conclusion/Plan - Diagnosis Diagnosis: 1) Hypertension. 2) Type 2 diabetes mellitus. 3) Coronary artery disease. 4) Status post left total knee arthroplasty - Plan Plan: We will continue her home antihypertensives during his hospitalization. With regards to her diabetes, we will place her on Lantus 5 units this evening and sliding scale. She can resume her home medications on discharge. I agree with a carb controlled diet. Pain control as per orthopedic surgery.
[2021-02-09] MEDS: ceFAZolin 2 GM/50 ML 2 GM/50 ML BAG IV SCH ×2 (13:52→22:01)
[2021-02-09] MEDS: NS W/20 MEQ KCL 1,000 ML IV SCH ×2 (13:52→23:59)
--- NOTE | 2021-02-09 14:51 | ANESTHESIA POST OP EVALUATION ---
Anesthesia Post Eval - Post Anesthesia Eval Vitals: Last Vital Signs Temp 36.5 C 02/09/21 13:35 Pulse 66 02/09/21 13:35 Resp 16 02/09/21 13:35 BP 126/62 02/09/21 13:35 Pulse Ox 97 02/09/21 13:35 CV Function Including HR & BP: positive: Stable Pain Control: positive: Satisfactory Nausea & Vomiting: positive: Negative Mental Status: positive: Baseline Respiratory Status: Airway Patent Hydration Status: Satisfactory Anesthesia Complications: positive: None
--- NOTE | 2021-02-09 16:30 | XRAY Report ---
PROCEDURE: Knee 2 View LT INDICATIONS: post left TKA TECHNIQUE: 2 views of the left knee(s) were acquired. COMPARISON: X-ray left knee, 05/22/2019 and 07/14/2020. FINDINGS: Bones: There is left knee total arthroplasty. The knee prosthesis is anatomically aligned. No fractu res or dislocations. No suspicious bony lesions. Soft tissues: No joint effusion. No suspicious soft tissue calcifications. IMPRESSION: Hemiarthroplasty with prosthesis in anatomic alignment. Reviewed by: Hamzah Farias MD on 02/09/2021 4:29 PM PDT Approved by: Hamzah Farias MD on 02/09/2021 4:29 PM PDT Station ID: [id number]
[2021-02-09] MEDS: ACETAMINOPHEN 500 MG TABLET PO SCH ×2 (17:09→23:34)
[2021-02-09] MEDS: INSULIN ASPART 300 UNIT/3 ML PEN SUBQ SCH ×2 (17:09→21:07)
[2021-02-09] MEDS: SODIUM CHLORIDE FLUSH 0.9% 10 ML SYRINGE IVP SCH ×2 (17:10→23:34)
--- NOTE | 2021-02-09 17:17 | PHARMACY PROGRESS NOTE ---
- Best Possible Medication History Admit Date and Time: 02/09/21 Processed by: Pharmacy Medication History completed: Yes Patient Interview: Completed Secondary Source(s): Written medication list, Pharmacy records, Insurance records As the person ultimately responsible for medication therapy, providers are able to order a medication from an existing home medication list in [facility] via the "Reconcile Routine" prior to Confirmation of that medication by learning support assistant. Such practice is discouraged except when the physician, in their clinical judgment, deems that a medical need exists for a medication without regard to previous use.
[2021-02-09] MEDS ORDERED: ATORVASTATIN 40 MG TABLET PO SCH (21:00)
[2021-02-09] MEDS ORDERED: INSULIN GLARGINE 300 UNIT/3 ML PEN SUBQ SCH (21:00)
[2021-02-09] MEDS: CELECOXIB 100 MG CAPSULE PO SCH (21:07)
[2021-02-09] MEDS: ASPIRIN EC 81 MG TABLET PO SCH (21:07)
[2021-02-09] MEDS: ethyl alcohoL 62% SWAB AMPULE NAS SCH (21:10)
[2021-02-10 04:38] LABS: BASOPHILS % (AUTO) 0.2 %; EOSINOPHILS # (AUTO) 0.1 10^3/uL (0.0-0.7); EOSINOPHILS % (AUTO) 1.1 %; HCT - HEMATOCRIT 28.3 % (37.0-47.0); HGB - HEMOGLOBIN 8.8 g/dL (12.0-16.0); LYMPHOCYTES % (AUTO) 8.2 %; MEAN CORPUSCULAR HEMOGLOBIN 28.9 pg (27.0-31.0); MEAN CORPUSCULAR HGB CONC 31.1 g/dL (32.0-36.0); MEAN CORPUSCULAR VOLUME 92.8 fL (81.0-99.0); MEAN PLATELET VOLUME 9.9 fL (7.9-10.8); MONOCYTES # (AUTO) 0.5 10^3/uL (0.0-1.0); MONOCYTES % (AUTO) 4.6 %; NEUTROPHILS # (AUTO) 9.9 10^3/uL (1.5-6.6); NEUTROPHILS % (AUTO) 85.3 %; PLT - PLATELET COUNT 160 10^3/uL (130-450); RED BLOOD COUNT 3.05 10^6/uL (4.20-5.40); WHITE BLOOD COUNT 11.6 x10^3/uL (4.8-10.8)
[2021-02-10] MEDS: ACETAMINOPHEN 500 MG TABLET PO SCH ×2 (05:26→11:38)
[2021-02-10] MEDS: INSULIN ASPART 300 UNIT/3 ML PEN SUBQ SCH ×2 (07:40→11:38)
[2021-02-10] MEDS ORDERED: SPIRONOLACTONE 25 MG TABLET PO SCH (09:00)
[2021-02-10] MEDS ORDERED: carvediloL 12.5 MG TABLET PO SCH (09:00)
[2021-02-10] MEDS ORDERED: LOSARTAN 50 MG TABLET PO SCH (09:00)
[2021-02-10] MEDS ORDERED: hydroCHLOROthiazide 25 MG TABLET PO SCH (09:00)
[2021-02-10 09:12] LABS: HCT - HEMATOCRIT 29.6 % (37.0-47.0); HGB - HEMOGLOBIN 9.4 g/dL (12.0-16.0)
--- NOTE | 2021-02-10 09:19 | PROVIDER PROGRESS NOTE ---
Subjective - General Procedure Date: 02/09/21 Post Op Days: 1 Procedure Performed: Left TKA - Review of Systems Wound/Incisions: positive: Dressing dry and intact General: positive: No symptoms Pulmonary: negative: Shortness of breath (pain and stiffness left knee) Cardiovascular: negative: Chest pain All Other Systems: positive: Reviewed and negative - Other Other Information/Narrative: Patient denies any numbness or tingling her pain is well controlled with Tylenol currently Objective - Patient Data Vital Signs: Vital Signs x48h Temp Pulse Resp BP Pulse Ox 02/10/21 07:35 36.7 C 81 18 140/67 H 98 02/10/21 05:25 36.7 C 90 18 138/67 H 96 Weight: Weight 02/08/21 02/09/21 02/10/21 23:59 23:59 23:59 Weight (kg) 66.8 kg Intake & Output: Intake and Output Totals x24h 02/08/21 02/09/21 02/10/21 23:59 23:59 23:59 Intake Total 1920 Output Total 1475 Balance 445 - Lab Results Lab Results: 02/10/21 04:06 Other Lab Results: Lab Results x24hrs 02/10/21 02/10/21 02/09/21 Range/Units 07:36 04:06 20:51 WBC 11.6 H (4.8-10.8) x10^3/uL RBC 3.05 L (4.20-5.40) 10^6/uL Hgb 8.8 L (12.0-16.0) g/dL Hct 28.3 L (37.0-47.0) % MCV 92.8 (81.0-99.0) fL MCH 28.9 (27.0-31.0) pg MCHC 31.1 L (32.0-36.0) g/dL RDW 12.0 (12.0-15.0) % Plt Count 160 (130-450) 10^3/uL MPV 9.9 (7.9-10.8) fL Neut # (Auto) 9.9 H (1.5-6.6) 10^3/uL Lymph # (Auto) 1.0 L (1.5-3.5) 10^3/uL [place] # (Auto) 0.5 (0.0-1.0) 10^3/uL Eos # (Auto) 0.1 (0.0-0.7) 10^3/uL Baso # (Auto) 0.0 (0.0-0.1) 10^3/uL Absolute Nucleated RBC 0.00 x10^3/uL Nucleated RBC % 0.0 /100WBC POC Whole Bld Glucose 125 H 193 H (70 - 100) mg/dL 02/09/21 02/09/21 Range/Units 16:35 12:20 WBC (4.8-10.8) x10^3/uL RBC (4.20-5.40) 10^6/uL Hgb (12.0-16.0) g/dL Hct (37.0-47.0) % MCV (81.0-99.0) fL MCH (27.0-31.0) pg MCHC (32.0-36.0) g/dL RDW (12.0-15.0) % Plt Count (130-450) 10^3/uL MPV (7.9-10.8) fL Neut # (Auto) (1.5-6.6) 10^3/uL Lymph # (Auto) (1.5-3.5) 10^3/uL [place] # (Auto) (0.0-1.0) 10^3/uL Eos # (Auto) (0.0-0.7) 10^3/uL Baso # (Auto) (0.0-0.1) 10^3/uL Absolute Nucleated RBC x10^3/uL Nucleated RBC % /100WBC POC Whole Bld Glucose 148 H 147 H (70 - 100) mg/dL - Imaging Results Radiology Imaging: positive: EMP read indepedently - Current Medications Current Medications: Current Medications Generic Name Dose Route Start Last Admin Trade Name Freq PRN Reason Stop Dose Admin Acetaminophen 1,000 mg 02/09/21 18:00 02/10/21 05:26 Acetaminophen 500 Mg Tablet PO 1,000 mg Q6HR ELIZABETH Administration Alcohol 1 amp 02/09/21 21:00 02/09/21 21:10 Ethyl Alcohol 62% Swab Ampule NIKKO 1 amp BID ELIZABETH Administration Aspirin 81 mg 02/09/21 21:00 02/09/21 21:07 Aspirin Ec 81 Mg Tablet PO 81 mg BID ELIZABETH Administration Atorvastatin Calcium 80 mg 02/09/21 21:00 02/09/21 21:07 Atorvastatin 40 Mg Tablet PO 80 mg QPM ELIZABETH Administration Celecoxib 200 mg 02/09/21 21:00 02/09/21 21:07 Celecoxib 100 Mg Capsule PO 200 mg BID ELIZABETH Administration Potassium Chloride/Sodium Chloride 1,000 mls @ 100 mls/hr 02/09/21 14:00 02/09/21 23:59 Normal Saline 0.9% W/20 Meq Kcl IV 100 mls/hr .Q10H ELIZABETH Administration Insulin Aspart 1 - 9 unit 02/09/21 17:00 02/10/21 07:40 Insulin Aspart 300 Unit/3 Ml Pen SUBQ Not Given 0800,1200,1700,2100 [facility] Protocol Insulin Glargine 5 unit 02/09/21 21:00 02/09/21 21:09 Insulin Glargine 300 Unit/3 Ml Pen SUBQ 5 unit QPM ELIZABETH Administration Oxycodone HCl 5 mg 02/09/21 12:07 02/09/21 16:06 Oxycodone 5 Mg Tablet PO 5 mg Q6HR PRN Administration PAIN Sodium Chloride 10 ml 02/09/21 17:00 02/09/21 23:34 Sodium Chloride Flush 0.9% 10 Ml Syringe IVP 10 ml 0100,0900,1700 ELIZABETH Administration Sodium Chloride 10 ml 02/09/21 12:07 02/09/21 13:52 Sodium Chloride Flush 0.9% 10 Ml Syringe IVP 10 ml PRN PRN Administration NEEDED PER PROVIDER ORDERS - Physical Exam Wound/Incisions: positive: Dressing dry and intact General Appearance: positive: No acute distress (Patient is able to gently move left knee ankle and foot. Dressing is dry and intact, Patient is neurovascularly intact in her left leg. Good cap refill.) Impression/Plan - Problem List Problem List: Patient is a 71-year-old female who is postop day 1 left TKA for DJD left knee. Patient has a history of CAD, DM 2. Patient is being comanaged by hospitalist. Patient is on same day surgery for total joint and orthopedically the patient is responding well. Her pain is well controlled with Tylenol, patient can use 5 mg oxycodone for breakthrough pain in preparation or after PT every 4-6 hours. Patient has no chest pain no shortness of breath. No numbness or tingling her compartments are soft. Dressing is dry and intact.Patient has a follow-up appointment next week with Ortho orthopedics. Discharge order, routine care has already been placed.
[2021-02-10] MEDS: ASPIRIN EC 81 MG TABLET PO SCH (09:25)
[2021-02-10] MEDS: CELECOXIB 100 MG CAPSULE PO SCH (09:25)
[2021-02-10] MEDS: SODIUM CHLORIDE FLUSH 0.9% 10 ML SYRINGE IVP SCH (09:26)
[2021-02-10] MEDS: ethyl alcohoL 62% SWAB AMPULE NAS SCH (09:26)
[2021-02-10] MEDS: NS W/20 MEQ KCL 1,000 ML IV SCH (10:47)
[2021-02-10 12:01] VITALS: BP 134/63
== END 2021-02-10 13:05 | disposition home or self-care (01) ==
LOC: SDS 07:17 → MS2 12:20 → SDS 02-10 13:05
PROVIDERS: ATTEND Orthopaedic Surgery
DX: M17.0 Bilateral primary osteoarthritis of knee (principal); I10 Essential (primary) hypertension; I25.10 Atherosclerotic heart disease of native coronary artery without angina pectoris; Z95.5 Presence of coronary angioplasty implant and graft; Z79.84 Long term (current) use of oral hypoglycemic drugs; E78.00 Pure hypercholesterolemia, unspecified; S83.282A Other tear of lateral meniscus, current injury, left knee, initial encounter
CPT/HCPCS: 27447; 36415; 73560; 85014; 85018; 85025; 97162; 97165; 97530; A9270; C1713; G8995; J0131; J0690; J1815; J3370; J7120

== ENCOUNTER 2021-03-28 07:00 | Outpatient (CLI) | payer MEDICARE, OTHER ==
--- NOTE | 2021-03-28 15:05 | XRAY Report ---
PROCEDURE: Knee 4 View LT INDICATIONS: POST OP CARE TECHNIQUE: 4 views of the left knee(s) were acquired. COMPARISON: 02/09/2021 left knee.. FINDINGS: Bones: No fractures or dislocations. No suspicious bony lesions. Soft tissues: No joint effusion. No suspicious soft tissue calcifications. IMPRESSION: No evidence of device loosening or disruption in this patient who has undergone left tot al knee arthroplasty. Reviewed by: Sunday Patel MD on 03/28/2021 3:03 PM PDT Approved by: Sunday Patel MD on 03/28/2021 3:03 PM PDT Station ID: [id number]
== END 2021-03-28 23:59 | disposition home or self-care (01) ==
LOC: DI.N 07:00
PROVIDERS: ATTEND Physician Assistant
DX: Z48.89 Encounter for other specified surgical aftercare (principal); Z96.652 Presence of left artificial knee joint

== ENCOUNTER 2021-08-29 16:00 | Outpatient (CLI) | payer MEDICARE, OTHER ==
--- NOTE | 2021-08-29 10:13 | XRAY Report ---
PROCEDURE: Knee 4 View LT INDICATIONS: POSTOP CARE TECHNIQUE: 4 views of the left knee(s) were acquired. COMPARISON: 04/14/2021. FINDINGS: Bones: Patient is status post left total knee arthroplasty. Left knee alignment is anatomic. No dat s hardware loosening or failure. No fractures or dislocations. No suspicious bony lesions. Soft tissues: No joint effusion. No suspicious soft tissue calcifications. IMPRESSION: Stable and anatomic left knee alignment. No gross hardware complication. No fracture or dislocation. Reviewed by: Cruz Parker MD on 08/29/2021 10:12 AM PDT Approved by: Cruz Parker MD on 08/29/2021 10:12 AM PDT Station ID: [id number]
== END 2021-08-29 16:01 | disposition home or self-care (01) ==
LOC: DI.N 16:00
PROVIDERS: ATTEND Physician Assistant
DX: Z48.89 Encounter for other specified surgical aftercare (principal); Z96.652 Presence of left artificial knee joint

== ENCOUNTER 2021-11-29 08:00 | Outpatient (CLI) | payer MEDICARE, OTHER ==
--- NOTE | 2021-11-29 17:51 | XRAY Report ---
PROCEDURE: Knee 4 View RT INDICATIONS: BILATERAL PRIMARY OSTEOARTHRITIS OF KNEE TECHNIQUE: 4 views of the right knee(s) were acquired. COMPARISON: None. FINDINGS: Bones: No fractures or dislocations. No suspicious bony lesions. Severe degenerative arthritis wit h tricompartment osteophytes and medial compartment joint space obliteration. Total left knee arthrop lasty, unremarkable on a single view. Soft tissues: No joint effusion. No suspicious soft tissue calcifications. IMPRESSION: Severe degenerative arthritis of the right knee. Reviewed by: Manuel Jade MD on 11/29/2021 5:50 PM PST Approved by: Manuel Jade MD on 11/29/2021 5:50 PM PST Station ID: [id number]
== END 2021-11-29 23:59 ==
LOC: DI.N 08:00
PROVIDERS: ATTEND Orthopaedic Surgery
DX: M17.0 Bilateral primary osteoarthritis of knee (principal)

== ENCOUNTER 2022-02-23 10:59 | Outpatient (CLI) | payer MEDICARE, OTHER ==
--- NOTE | 2022-02-23 15:27 | XRAY Report ---
PROCEDURE: Knee 4 View LT INDICATIONS: BILATERAL PRIMARY OSTEOARTHRITIS OF KNEE TECHNIQUE: 3 views of the left knee(s) were acquired. COMPARISON: None. FINDINGS: Bones: Postsurgical changes compatible with left knee arthroplasty. Orthopedic hardware is in expect ed position. No lucencies at the bone hardware interface. No fractures or dislocations. No suspiciou s bony lesions. Soft tissues: Small left knee joint effusion. No suspicious soft tissue calcifications. IMPRESSION: Status post left knee arthroplasty. No fracture. No acute osseous lesion. If there persistent symptoms or continued clinical concern for pathology, th en repeat plain film radiographs (7-10 days) or advanced imaging (CT, MR, bone scan) should be consid ered for further evaluation. Small nonspecific left knee joint effusion. Reviewed by: Graciela Gonzalez MD, PhD on 02/23/2022 3:26 PM PDT Approved by: Graciela Gonzalez MD, PhD on 02/23/2022 3:26 PM PDT Station ID: [id number]
== END 2022-02-23 11:00 | disposition home or self-care (01) ==
LOC: DI.N 10:59
PROVIDERS: ATTEND Physician Assistant
DX: M17.0 Bilateral primary osteoarthritis of knee (principal); Z96.652 Presence of left artificial knee joint; M25.462 Effusion, left knee

== ENCOUNTER 2022-08-22 09:35 | Outpatient (CLI) | payer MEDICARE, OTHER ==
[2022-08-22 12:53] LABS: ALBUMIN 4.2 g/dL (3.2-5.5); ALBUMIN/GLOBULIN RATIO 1.3 (1.0-2.2); ALKALINE PHOSPHATASE 56 IU/L (42-121); ALT ALANINE AMINOTRANSFERASE 28 IU/L (10-60); AST ASPARTATE AMINOTRANSFERASE 25 IU/L (10-42); BILIRUBIN,TOTAL 0.9 mg/dL (0.2-1.0); BUN - BLOOD UREA NITROGEN 28 mg/dL (6-20); CALCIUM 9.6 mg/dL (8.5-10.3); CARBON DIOXIDE - CO2 27 mmol/L (21-32); CHLORIDE 103 mmol/L (101-111); CHOL/HDL RATIO 3.8 (<4.4); CHOLESTEROL 181 mg/dL; CREATININE 1.1 mg/dL (0.4-1.0); GFR - MDRD 49 (>89); GLUCOSE 128 mg/dL (70-100); HDL CHOLESTEROL 48 mg/dL; LDL CHOLESTEROL,CALCULATED 87 mg/dL; LDL/HDL RATIO 1.8 (<4.4); POTASSIUM 4.2 mmol/L (3.5-5.0); SODIUM 140 mmol/L (135-145); TOTAL PROTEIN 7.4 g/dL (6.7-8.2); TRIGLYCERIDES 232 mg/dL; VLDL CHOLESTEROL 46 mg/dL
[2022-08-22 13:36] LABS: ESTIMATED AVERAGE GLUCOSE 157 mg/dL (70-100); HEMOGLOBIN A1c% 7.1 % (4.27-6.07)
== END 2022-08-22 09:36 | disposition home or self-care (01) ==
LOC: LAB.N 09:35
PROVIDERS: ATTEND Physician Assistant
DX: E11.9 Type 2 diabetes mellitus without complications (principal); E78.5 Hyperlipidemia, unspecified
CPT/HCPCS: 36415; 80053; 80061; 83036; 83721

== ENCOUNTER 2022-12-05 15:27 | Outpatient (CLI) | payer MEDICARE, OTHER ==
--- NOTE | 2022-12-05 15:40 | XRAY Report ---
PROCEDURE: Knee 4 View BILAT INDICATIONS: LEFT TKA F/U, RIGHT KNEE PAIN TECHNIQUE: 4 views of the right and left knee(s) were acquired. COMPARISON: Left knee 4 views 02/23/2022 FINDINGS: Bones: No acute fracture or dislocation. Prior left knee arthroplasty. Hardware appears intact. Milla re medial compartment joint space narrowing of the right knee, one or lateral compartment narrowing a nd mild patellofemoral compartment narrowing also present. Tricompartmental spurring present. Soft tissues: No joint effusion. No suspicious soft tissue calcifications. IMPRESSION: 1. Tricompartmental degenerative changes of the right knee. 2. Left knee arthroplasty. Reviewed by: Bernardo Russell MD on 12/05/2022 3:38 PM PST Approved by: Bernardo Russell MD on 12/05/2022 3:38 PM PST Station ID: [id number]
== END 2022-12-05 15:28 | disposition home or self-care (01) ==
LOC: DI.WOS 15:27
PROVIDERS: ATTEND Physician Assistant Surgical
DX: M17.11 Unilateral primary osteoarthritis, right knee (principal); Z96.652 Presence of left artificial knee joint

== ENCOUNTER 2023-02-14 09:40 | Outpatient (CLI) | payer MEDICARE, OTHER ==
[2023-02-14 11:41] LABS: BASOPHILS % (AUTO) 0.4 %; EOSINOPHILS # (AUTO) 0.2 10^3/uL (0.0-0.7); EOSINOPHILS % (AUTO) 2.2 %; HCT - HEMATOCRIT 35.7 % (37.0-47.0); HGB - HEMOGLOBIN 11.5 g/dL (12.0-16.0); LYMPHOCYTES % (AUTO) 29.4 %; MEAN CORPUSCULAR HEMOGLOBIN 29.6 pg (27.0-31.0); MEAN CORPUSCULAR HGB CONC 32.2 g/dL (32.0-36.0); MEAN PLATELET VOLUME 9.4 fL (7.9-10.8); MONOCYTES # (AUTO) 0.5 10^3/uL (0.0-1.0); MONOCYTES % (AUTO) 7.1 %; NEUTROPHILS # (AUTO) 4.1 10^3/uL (1.5-6.6); NEUTROPHILS % (AUTO) 60.6 %; PLT - PLATELET COUNT 215 10^3/uL (130-450); RED BLOOD COUNT 3.88 10^6/uL (4.20-5.40); RED CELL DISTRIBUTION WIDTH 12.8 % (12.0-15.0); WHITE BLOOD COUNT 6.8 x10^3/uL (4.8-10.8)
[2023-02-14 12:03] LABS: ALBUMIN 4.3 g/dL (3.2-5.5); ALBUMIN/GLOBULIN RATIO 1.3 (1.0-2.2); ALKALINE PHOSPHATASE 51 IU/L (42-121); ALT ALANINE AMINOTRANSFERASE 18 IU/L (10-60); AST ASPARTATE AMINOTRANSFERASE 22 IU/L (10-42); BILIRUBIN,TOTAL 0.9 mg/dL (0.2-1.0); BUN - BLOOD UREA NITROGEN 30 mg/dL (6-20); CALCIUM 9.6 mg/dL (8.5-10.3); CARBON DIOXIDE - CO2 27 mmol/L (21-32); CHLORIDE 104 mmol/L (101-111); CHOL/HDL RATIO 3.3 (<4.4); CHOLESTEROL 139 mg/dL; CREATININE 1.3 mg/dL (0.4-1.0); GFR - MDRD 40 (>89); GLUCOSE 119 mg/dL (70-100); HDL CHOLESTEROL 42 mg/dL; LDL CHOLESTEROL,CALCULATED 80 mg/dL; LDL/HDL RATIO 1.9 (<4.4); POTASSIUM 5.2 mmol/L (3.5-5.0); SODIUM 137 mmol/L (135-145); TOTAL PROTEIN 7.6 g/dL (6.7-8.2); TRIGLYCERIDES 84 mg/dL; VLDL CHOLESTEROL 17 mg/dL
[2023-02-14 12:15] LABS: ESTIMATED AVERAGE GLUCOSE 160 mg/dL (70-100); HEMOGLOBIN A1c% 7.2 % (4.27-6.07)
== END 2023-02-14 09:41 | disposition home or self-care (01) ==
LOC: LAB.N 09:40
PROVIDERS: ATTEND Physician Assistant
DX: E11.9 Type 2 diabetes mellitus without complications (principal); E78.5 Hyperlipidemia, unspecified
CPT/HCPCS: 36415; 80053; 80061; 83036; 83721; 85025

== ENCOUNTER 2023-03-06 14:57 | Outpatient (CLI) | payer MEDICARE, OTHER | END 2023-03-06 14:58 | disposition EMS.NT | LOC: EMS 14:57 | DX: S61.214A Laceration without foreign body of right ring finger without damage to nail, initial encounter (principal); W01.0XXA Fall on same level from slipping, tripping and stumbling without subsequent striking against object, initial encounter ==

== ENCOUNTER 2023-04-16 08:00 | Outpatient (CLI) | payer MEDICARE, OTHER | END 2023-04-16 23:59 | disposition home or self-care (01) | LOC: LAB 08:00 | PROVIDERS: ATTEND Nurse Practitioner | DX: R30.0 Dysuria (principal); R53.1 Weakness | CPT/HCPCS: 36415; 80053; 85025; 87077; 87086 ==

== ENCOUNTER 2023-04-16 15:00 | Outpatient (CLI) | payer MEDICARE, OTHER ==
[2023-04-16 17:47] LABS: BASOPHILS % (AUTO) 0.3 %; EOSINOPHILS % (AUTO) 0.1 %; HCT - HEMATOCRIT 35.7 % (37.0-47.0); HGB - HEMOGLOBIN 11.4 g/dL (12.0-16.0); LYMPHOCYTES % (AUTO) 6.8 %; MEAN CORPUSCULAR HEMOGLOBIN 29.4 pg (27.0-31.0); MEAN CORPUSCULAR HGB CONC 31.9 g/dL (32.0-36.0); MONOCYTES # (AUTO) 0.7 10^3/uL (0.0-1.0); MONOCYTES % (AUTO) 4.6 %; NEUTROPHILS # (AUTO) 13.1 10^3/uL (1.5-6.6); NEUTROPHILS % (AUTO) 87.9 %; PLT - PLATELET COUNT 197 10^3/uL (130-450); RED BLOOD COUNT 3.88 10^6/uL (4.20-5.40); RED CELL DISTRIBUTION WIDTH 12.2 % (12.0-15.0); WHITE BLOOD COUNT 14.9 x10^3/uL (4.8-10.8)
[2023-04-16 17:49] LABS: ALBUMIN 4.1 g/dL (3.2-5.5); ALBUMIN/GLOBULIN RATIO 1.1 (1.0-2.2); BILIRUBIN,TOTAL 0.8 mg/dL (0.2-1.0); CALCIUM 9.2 mg/dL (8.5-10.3); CREATININE 1.1 mg/dL (0.4-1.0); POTASSIUM 3.9 mmol/L (3.5-5.0); TOTAL PROTEIN 7.8 g/dL (6.7-8.2)
== END 2023-04-16 15:15 | disposition home or self-care (01) ==
LOC: LAB.N 15:00
PROVIDERS: ATTEND Nurse Practitioner
DX: R53.1 Weakness (principal)
CPT/HCPCS: 36415; 80053; 85025

== ENCOUNTER 2023-05-14 07:22 | Outpatient (CLI) | payer MEDICARE, OTHER ==
[2023-05-14 12:21] LABS: ESTIMATED AVERAGE GLUCOSE 157 mg/dL (70-100); HEMOGLOBIN A1c% 7.1 % (4.27-6.07)
[2023-05-14 12:34] LABS: CALCIUM 9.2 mg/dL (8.5-10.3); CREATININE 1.2 mg/dL (0.4-1.0); POTASSIUM 4.4 mmol/L (3.5-5.0)
== END 2023-05-14 07:23 | disposition home or self-care (01) ==
LOC: LAB.N 07:22
PROVIDERS: ATTEND Physician Assistant
DX: E11.9 Type 2 diabetes mellitus without complications (principal)
CPT/HCPCS: 36415; 80048; 83036

== ENCOUNTER 2023-08-14 10:09 | Outpatient (CLI) | payer MEDICARE, OTHER ==
[2023-08-14 12:41] LABS: BASOPHILS % (AUTO) 0.3 %; EOSINOPHILS # (AUTO) 0.1 10^3/uL (0.0-0.7); EOSINOPHILS % (AUTO) 1.8 %; HCT - HEMATOCRIT 37.8 % (37.0-47.0); HGB - HEMOGLOBIN 11.7 g/dL (12.0-16.0); LYMPHOCYTES # (AUTO) 1.6 10^3/uL (1.5-3.5); LYMPHOCYTES % (AUTO) 21.5 %; MEAN CORPUSCULAR HEMOGLOBIN 28.7 pg (27.0-31.0); MEAN CORPUSCULAR VOLUME 92.6 fL (81.0-99.0); MONOCYTES # (AUTO) 0.4 10^3/uL (0.0-1.0); MONOCYTES % (AUTO) 5.4 %; NEUTROPHILS # (AUTO) 5.1 10^3/uL (1.5-6.6); NEUTROPHILS % (AUTO) 70.6 %; PLT - PLATELET COUNT 187 10^3/uL (130-450); RED BLOOD COUNT 4.08 10^6/uL (4.20-5.40); RED CELL DISTRIBUTION WIDTH 12.5 % (12.0-15.0); WHITE BLOOD COUNT 7.3 x10^3/uL (4.8-10.8)
[2023-08-14 13:06] LABS: ALBUMIN 4.5 g/dL (3.2-5.5); ALBUMIN/GLOBULIN RATIO 1.6 (1.0-2.2); ALKALINE PHOSPHATASE 45 IU/L (42-121); ALT ALANINE AMINOTRANSFERASE 15 IU/L (10-60); AST ASPARTATE AMINOTRANSFERASE 19 IU/L (10-42); BILIRUBIN,TOTAL 0.6 mg/dL (0.2-1.0); BUN - BLOOD UREA NITROGEN 27 mg/dL (6-20); CALCIUM 9.8 mg/dL (8.5-10.3); CARBON DIOXIDE - CO2 29 mmol/L (21-32); CHLORIDE 102 mmol/L (101-111); CHOL/HDL RATIO 3.1 (<4.4); CHOLESTEROL 139 mg/dL; CREATININE 1.1 mg/dL (0.6-1.3); GFR - MDRD 48 (>89); GLUCOSE 132 mg/dL (74-104); HDL CHOLESTEROL 45 mg/dL; LDL CHOLESTEROL,CALCULATED 72 mg/dL; LDL/HDL RATIO 1.6 (<4.4); POTASSIUM 4.7 mmol/L (3.5-4.5); SODIUM 138 mmol/L (135-145); TOTAL PROTEIN 7.3 g/dL (6.4-8.9); TRIGLYCERIDES 110 mg/dL (48-352); VLDL CHOLESTEROL 22 mg/dL
[2023-08-14 13:15] LABS: THYROID STIMULATING HORMONE 1.55 uIU/mL (0.34-5.60)
[2023-08-14 13:20] LABS: ESTIMATED AVERAGE GLUCOSE 148 mg/dL (70-100); HEMOGLOBIN A1c% 6.8 % (4.27-6.07)
[2023-08-14 13:23] LABS: CREATININE,URINE 126.3 mg/dL; MICROALBUM/CREATININE RATIO,UR 6.3 ug/mg (<30.0); MICROALBUMIN,URINE 0.8 mg/dL
== END 2023-08-14 10:10 | disposition home or self-care (01) ==
LOC: LAB.N 10:09
PROVIDERS: ATTEND Physician Assistant
DX: E11.22 Type 2 diabetes mellitus with diabetic chronic kidney disease (principal)
CPT/HCPCS: 36415; 80053; 80061; 82043; 82570; 83036; 83721; 84443; 85025

== ENCOUNTER 2023-09-15 14:10 | Outpatient (CLI) | payer MEDICARE, OTHER ==
--- NOTE | 2023-09-15 16:13 | Ultrasound Report ---
PROCEDURE: Retroperitoneal INDICATIONS: KIDNEY DISEASE TECHNIQUE: Real-time scanning was performed of the retroperitoneal organs, with image documentation. COMPARISON: None. FINDINGS: Kidneys: Kidneys are atrophic. Right kidney measures 8.8 cm long; left kidney measures 9.3 cm long. Right renal cortical thickness is 0.5 cm; left renal cortical thickness is 0.8 cm. No solid masses, hydronephrosis, or nephrolithiasis. Bladder: Pre-void bladder volume is 20 mL. Post-void residual is 0 mL. Pre-void images demonstrate no intraluminal masses or stones. On pre-void images, bilateral ureteral jets are noted with color Doppler interrogation. (Of note, ureteral jets may not be detectable in up to 25% of cases due to in sufficient differences in specific gravity between ureteral and bladder urine). Miscellaneous: No free abdominal fluid. IMPRESSION: Mild renal atrophy. Reviewed by: Lauren Lancaster MD on 09/15/2023 4:12 PM PDT Approved by: Lauren Lancaster MD on 09/15/2023 4:12 PM PDT Station ID: [id number]
== END 2023-09-15 14:11 | disposition home or self-care (01) ==
LOC: DI 14:10
PROVIDERS: ATTEND Internal Medicine Nephrology
DX: N32.0 Bladder-neck obstruction (principal); N26.1 Atrophy of kidney (terminal)

== ENCOUNTER 2023-09-22 09:50 | Outpatient (CLI) | payer MEDICARE, OTHER ==
[2023-09-22 11:01] LABS: CREATININE 1.1 mg/dL (0.6-1.3); POTASSIUM 3.8 mmol/L (3.5-4.5)
[2023-09-22 11:14] LABS: CREATININE,URINE 84.1 mg/dL; PROTEIN/CREATININE RATIO,URINE 0.1 (<=0.2)
[2023-09-22 11:23] LABS: ESTIMATED AVERAGE GLUCOSE 146 mg/dL (70-100); HEMOGLOBIN A1c% 6.7 % (4.27-6.07)
== END 2023-09-22 09:51 | disposition home or self-care (01) ==
LOC: LAB 09:50
PROVIDERS: ATTEND Physician Assistant
DX: E11.22 Type 2 diabetes mellitus with diabetic chronic kidney disease (principal); N05.9 Unspecified nephritic syndrome with unspecified morphologic changes; R80.9 Proteinuria, unspecified
CPT/HCPCS: 36415; 80048; 82570; 83036; 84156

== ENCOUNTER 2023-09-22 10:06 | Outpatient (CLI) | payer MEDICARE, OTHER | END 2023-09-22 10:07 | disposition home or self-care (01) | LOC: LAB 10:06 | PROVIDERS: ATTEND Internal Medicine Nephrology | DX: E11.9 Type 2 diabetes mellitus without complications (principal); N05.9 Unspecified nephritic syndrome with unspecified morphologic changes; R80.9 Proteinuria, unspecified ==

== ENCOUNTER 2024-01-07 14:03 | Outpatient (CLI) | payer MEDICARE, OTHER ==
--- NOTE | 2024-01-07 20:38 | XRAY Report ---
PROCEDURE: Knee 4 View RT INDICATIONS: RIGHT KNEE PAIN TECHNIQUE: 4 views of the knee(s) were acquired. COMPARISON: X-ray bilateral knee 12/05/2022 FINDINGS: Bones: No fractures or dislocations. No suspicious bony lesions. There is severe medial and mild to moderate lateral and patellofemoral compartment narrowing on the right. Subchondral sclerosis and periarticular osteophytes are most severe medially. Overall appearance is stable compared to prior ex am. Left knee arthroplasty is present. Hardware is intact without evidence of hardware fracture or pe riprosthetic lucency to suggest loosening. Soft tissues: Mild right knee joint effusion. No suspicious soft tissue calcifications or masses. IMPRESSION: Tricompartmental arthritic changes on the right most severe medially, stable. Reviewed by: Lauren Lancaster MD on 01/07/2024 8:36 PM PST Approved by: Lauren Lancaster MD on 01/07/2024 8:36 PM PST Station ID: [id number]
== END 2024-01-07 23:59 | disposition home or self-care (01) ==
LOC: DI.WOS 14:03
PROVIDERS: ATTEND Physician Assistant Surgical
DX: M17.11 Unilateral primary osteoarthritis, right knee (principal)

== ENCOUNTER 2024-04-24 10:15 | Outpatient (CLI) | payer MEDICARE, OTHER ==
[2024-04-24 12:09] LABS: BASOPHILS % (AUTO) 0.6 %; EOSINOPHILS # (AUTO) 0.2 10^3/uL (0.0-0.7); EOSINOPHILS % (AUTO) 2.9 %; HCT - HEMATOCRIT 36.7 % (37.0-47.0); HGB - HEMOGLOBIN 11.7 g/dL (12.0-16.0); LYMPHOCYTES # (AUTO) 1.9 10^3/uL (1.5-3.5); LYMPHOCYTES % (AUTO) 29.3 %; MEAN CORPUSCULAR HEMOGLOBIN 28.2 pg (27.0-31.0); MEAN CORPUSCULAR HGB CONC 31.9 g/dL (32.0-36.0); MEAN CORPUSCULAR VOLUME 88.4 fL (81.0-99.0); MONOCYTES # (AUTO) 0.4 10^3/uL (0.0-1.0); MONOCYTES % (AUTO) 6.2 %; NEUTROPHILS # (AUTO) 3.9 10^3/uL (1.5-6.6); NEUTROPHILS % (AUTO) 60.5 %; PLT - PLATELET COUNT 238 10^3/uL (130-450); RED BLOOD COUNT 4.15 10^6/uL (4.20-5.40); RED CELL DISTRIBUTION WIDTH 12.5 % (12.0-15.0); WHITE BLOOD COUNT 6.5 x10^3/uL (4.8-10.8)
[2024-04-24 12:49] LABS: ESTIMATED AVERAGE GLUCOSE 140 mg/dL (70-100); HEMOGLOBIN A1c% 6.5 % (4.27-6.07)
[2024-04-24 13:22] LABS: THYROID STIMULATING HORMONE 1.92 uIU/mL (0.34-5.60)
[2024-04-24 13:29] LABS: ALBUMIN 4.3 g/dL (3.2-5.5); ALBUMIN/GLOBULIN RATIO 1.7 (1.0-2.2); ALKALINE PHOSPHATASE 61 IU/L (42-121); ALT ALANINE AMINOTRANSFERASE 15 IU/L (10-60); AST ASPARTATE AMINOTRANSFERASE 20 IU/L (10-42); BILIRUBIN,TOTAL 0.5 mg/dL (0.2-1.0); BUN - BLOOD UREA NITROGEN 21 mg/dL (6-20); CALCIUM 9.7 mg/dL (8.5-10.3); CARBON DIOXIDE - CO2 28 mmol/L (21-32); CHLORIDE 100 mmol/L (101-111); CHOL/HDL RATIO 3.1 (<4.4); CHOLESTEROL 113 mg/dL; CREATININE 1.1 mg/dL (0.6-1.3); GFR - MDRD 48 (>89); GLUCOSE 117 mg/dL (74-104); HDL CHOLESTEROL 36 mg/dL; LDL CHOLESTEROL,CALCULATED 50 mg/dL; LDL/HDL RATIO 1.4 (<4.4); POTASSIUM 3.8 mmol/L (3.5-4.5); SODIUM 137 mmol/L (135-145); TOTAL PROTEIN 6.9 g/dL (6.4-8.9); TRIGLYCERIDES 133 mg/dL (48-352); VLDL CHOLESTEROL 27 mg/dL
== END 2024-04-24 10:16 | disposition home or self-care (01) ==
LOC: LAB.N 10:15
PROVIDERS: ATTEND Physician Assistant
DX: E11.22 Type 2 diabetes mellitus with diabetic chronic kidney disease (principal)
CPT/HCPCS: 36415; 80053; 80061; 83036; 83721; 84443; 85025

== ENCOUNTER 2024-08-19 10:59 | Emergency (ER) | payer MEDICARE, OTHER ==
--- NOTE | 2024-08-19 11:39 | ED Physician Documentation ---
PD HPI HEAD INJURY - Stated complaint Stated Complaint: FALL,HEAD INJ,LEG NUMBNESS - Chief complaint Chief Complaint: Trauma Hd/Nk - History obtained from History obtained from: Patient, Family - Additional information Additional information: 74-year-old woman presents with daughter. She had a fall this morning in the bathroom hitting the shower door with the back of her head and also injured her tailbone. She has some chronic worsening mobility issues yet to be worked up but has an appointment with the primary for evaluation. She did not blackout. She does have a mild headache. She is not anticoagulated. The tailbone hurts more than the head. She does use a walker. Is in physical therapy. PD PAST MEDICAL HISTORY - Past Medical History Cardiovascular: Hypertension, High cholesterol, Coronary artery disease Respiratory: None Endocrine/Autoimmune: Type 2 diabetes GI: None : Incontinence Psych: None Musculoskeletal: Other Derm: None - Past Surgical History Cardiovascular: Coronary stent, Angioplasty - Present Medications Home Medications: Ambulatory Orders Medication Instructions Recorded Confirmed Atorvastatin Calcium [Lipitor] 80 mg PO DAILY 08/06/14 08/19/24 Fish Oil/Dha/Epa [Fish Oil 1,200 1 each PO DAILY 08/06/14 08/19/24 mg Fish Oil] Losartan [Cozaar] 100 mg PO BID 08/06/14 08/19/24 carvediloL [Coreg] 25 mg PO BID 08/06/14 08/19/24 hydroCHLOROthiazide 25 mg PO DAILY 08/06/14 08/19/24 [Hydrochlorothiazide] SITagliptin [Januvia] 100 mg PO DAILY 12/20/18 08/19/24 metFORMIN [Glucophage] 500 mg PO TID 12/20/18 08/19/24 Aspirin EC [Ecotrin] 81 mg PO DAILY 02/09/21 08/19/24 Calcium Carbonate/Vitamin D3 1 each PO DAILY 02/09/21 08/19/24 [Calcium 600-Vit D3 200 Tablet] Cholecalciferol [Vitamin D3] 25 mcg PO DAILY 02/09/21 08/19/24 Magnesium Oxide [Mag Ox] 400 mg PO HS 02/09/21 08/19/24 - Allergies Allergies/Adverse Reactions: Allergies Allergy/AdvReac Type Severity Reaction Status Date / Time No Known Drug Allergies Allergy Verified 08/19/24 11:38 - Social History Does the pt smoke?: No Smoking Status: Never smoker PD ED PE NORMAL - Vitals Vital signs reviewed: Yes - General General: Alert and oriented X 3, Other (Mildly slow to answer questions) - HEENT HEENT: PERRL, EOMI - Neck Neck: No bony TTP - Back Back: Other (Tender over the sacrum and coccyx, no other spinal tenderness.) Results - Vitals Vitals: Vital Signs - 24 hr 08/19/24 11:34 Temperature 36.2 C L Heart Rate 68 Respiratory 16 Rate Blood Pressure 173/87 H O2 Saturation 98 Oxygen O2 Source Room air - Rads (name of study) CT of the head was negative. Relevant Findings:: Final report received, EMP independent interpretation of test CT cervical spine was negative. Relevant Findings:: Final report received, EMP independent interpretation of test Departure - Departure Disposition: 01 Home, Self Care Clinical Impression: Injury of head and neck Qualifiers: Encounter type: initial encounter Qualified Code(s): S09.90XA - Unspecified injury of head, initial encounter; S19.9XXA - Unspecified injury of neck, initial encounter Injury of back Qualifiers: Encounter type: initial encounter Qualified Code(s): S39.92XA - Unspecified injury of lower back, initial encounter Condition: Good Record reviewed to determine appropriate education?: Yes Instructions: ED Contusion Back Comments: Follow-up with your primary care physician as scheduled for routine care. Tylenol and ice for the pains. Return for new or worsening symptoms. Forms: PCP List
--- NOTE | 2024-08-19 13:55 | CT Report ---
PROCEDURE: Head WO INDICATIONS: head/tailbone inj TECHNIQUE: Noncontrast 4.5 mm thick angled axial sections acquired from the foramen magnum to the vertex. For r adiation dose reduction, the following was used: automated exposure control, adjustment of mA and/or kV according to patient size. COMPARISON: None. FINDINGS: Image quality: Excellent. CSF spaces: Basal cisterns are patent. No extra-axial fluid collections. Ventricles are normal in size and shape. Brain: No midline shift. No intracranial masses or hemorrhage. Age-related global volume loss and c hronic microvascular ischemic changes. Intracranial atherosclerotic vascular calcifications. Lozada-wh ite matter interface is normal. Skull and face: Calvarium and visualized facial bones are intact, without suspicious lesions. Sinuses: Visualized sinuses and mastoids are clear. IMPRESSION: No acute intracranial pathology. Reviewed by: Patrick Edwards MD on 08/19/2024 1:54 PM PDT Approved by: Patrick Edwards MD on 08/19/2024 1:54 PM PDT Station ID: [id number]
--- NOTE | 2024-08-19 13:57 | CT Report ---
PROCEDURE: Cervical Spine WO INDICATIONS: head/tailbone inj TECHNIQUE: Noncontrast 3 mm thick sections acquired from the skull base to the T4 level. Sagittal and coronal r eformats were then constructed. For radiation dose reduction, the following was used: automated exp osure control, adjustment of mA and/or kV according to patient size. COMPARISON: None. FINDINGS: Image quality: Excellent. Bones: No fractures or dislocations. Multilevel degenerative changes of the spine. Visualized superi or ribs are intact. Soft tissues: Prevertebral soft tissues are normal in thickness. No paravertebral hematomas. No ap ical pneumothoraces. IMPRESSION: No acute, displaced fracture or traumatic subluxation. Reviewed by: Patrick Edwards MD on 08/19/2024 1:56 PM PDT Approved by: Patrick Edwards MD on 08/19/2024 1:56 PM PDT Station ID: [id number]
--- NOTE | 2024-08-19 14:04 | CT Report ---
PROCEDURE: Pelvis WO INDICATIONS: head/tailbone inj TECHNIQUE: Noncontrast 3 mm axial sections acquired through the bony pelvis, with coronal and sagittal reformatt ing. For radiation dose reduction, the following was used: automated exposure control, adjustment of mA and/or kV according to patient size. COMPARISON: None. FINDINGS: Image quality: Excellent. Bones: No acute fracture or dislocation is seen. Diffusely decreased osseous mineralization. Degener ative changes of the visualized lower lumbar spine. Mild to moderate bilateral hip joint degeneration with joint space narrowing and marginal spurring. Soft tissues: Subcutaneous stranding adjacent to the right hip. Atherosclerotic vascular calcificati ons. No acute findings within the visualized pelvis. IMPRESSION: No acute fracture or dislocation is seen. Subcutaneous stranding is seen adjacent to the right hip, c onsistent with bruising. Reviewed by: Patrick Edwards MD on 08/19/2024 2:03 PM PDT Approved by: Patrick Edwards MD on 08/19/2024 2:03 PM PDT Station ID: [id number]
[2024-08-19 14:48] VITALS: BP 136/82; O2SAT 97
== END 2024-08-19 14:47 | disposition home or self-care (01) ==
LOC: ED 10:59
DX: S09.90XA Unspecified injury of head, initial encounter (principal); S19.9XXA Unspecified injury of neck, initial encounter; S39.92XA Unspecified injury of lower back, initial encounter; W18.30XA Fall on same level, unspecified, initial encounter; W22.09XA Striking against other stationary object, initial encounter; Z91.81 History of falling; Y92.002 Bathroom of unspecified non-institutional (private) residence as the place of occurrence of the external cause
CPT/HCPCS: 99283; 99284

== ENCOUNTER 2025-03-10 13:07 | Inpatient (IN) ==
--- NOTE | 2025-03-10 13:15 | ED Physician Documentation ---
PD HPI Fall Stated complaint Stated Complaint: R HIP PX Chief complaint Chief Complaint: Ext Problem History obtained from History obtained from: Patient, Family and EMS History of Present Illness Mechanism of injury: Lost balance Fall distance: Standing position Where injury occurred: Home Timing - onset: Today (Report from EMS and family as the patient has fallen twice in the last 16 hours and has history of falls fairly frequently over the last several weeks to months. Current injuries are the left chin and pain in the pelvis and hip on the left and some pain in that ribs on the right. Denies headache. ) and Last night Injury(ies) location: Face, Chest, Back and Left Lower Extremity (left hip but without pain on ROM of the hip while lying. ) Quality of pain: Aching Associated symptoms: Other (History of Parkinson's with general balance problems. She does have a walker but still falls despite that.); No LOC, AMS, Weakness or Paresthesias Worsens with: Movement (left hip and low back) and Other (mild pain right chest with breathing. ) Contributing factors: No Anticoagulated Meds/Allgy Home Medications Ambulatory Orders Medication Instructions Recorded Confirmed fish oil-dha-epa 1,200 mg-144 1 ea PO DAILY 08/06/14 03/10/25 mg-216 mg capsule sitagliptin phosphate 100 mg 100 mg PO DAILY 12/20/18 03/10/25 tablet (Januvia) aspirin 81 mg tablet,delayed 81 mg PO DAILY 02/09/21 03/10/25 release calcium 600 mg (as 1 ea PO DAILY 02/09/21 03/10/25 carbonate)-vitamin D3 5 mcg (200 unit) tablet cholecalciferol (vitamin D3) 25 25 mcg PO DAILY 02/09/21 03/10/25 mcg (1,000 unit) tablet magnesium oxide 400 mg (241.3 mg 400 mg PO HS 02/09/21 03/10/25 magnesium) tablet acetaminophen 500 mg capsule 1,000 mg PO Q6H PRN fever or pain 10/08/24 03/10/25 metformin 500 mg tablet,extended 1,500 mg PO QDAY 10/08/24 03/10/25 release 24 hr (Glucophage XR) hydrochlorothiazide 25 mg tablet 25 mg PO DAILY #90 tabs 12/10/24 03/10/25 carbidopa 25 mg-levodopa 100 mg 1 tab PO TID #270 tabs 01/05/25 03/10/25 tablet (Sinemet) carvedilol 25 mg tablet (Coreg) 25 mg PO BID #180 tabs 01/05/25 03/10/25 atorvastatin 80 mg tablet (Lipitor) 80 mg PO DAILY #90 tabs 02/28/25 03/10/25 losartan 25 mg tablet 25 mg PO QDAY #90 tabs 02/28/25 03/10/25 Allergies Allergies Allergy/AdvReac Type Severity Reaction Status Date / Time No Known Drug Allergies Allergy Verified 03/10/25 13:12 PFSH Active Problems All Active Problems (Updated 03/10/25 @ 21:21 by Floyd rCaig MD) Intractable back pain (Acute) Fracture (Acute) Intractable pain (Acute) Fracture of transverse process of lumbar vertebra (Acute) Right rib fracture (Acute) Falls frequently (Acute) Fracture of greater trochanter (Acute) Parkinson disease with dyskinesia (Acute) Bilateral primary osteoarthritis of knee (Acute) Chronic kidney disease due to type 2 diabetes mellitus (Acute) Essential (primary) hypertension (Acute) Hyperlipidemia (Acute) Diabetes mellitus with hyperglycemia (Acute) Dementia in other diseases classified elsewhere, moderate, without behavioral disturbance, psychotic disturbance, mood disturbance, and anxiety (Acute) Medical History Medical History (Updated 03/10/25 @ 21:21 by Floyd Craig MD) Bradykinesia Chronic knee pain Acute head trauma Repeated falls Rosacea Hearing loss, bilateral CAD (coronary artery disease) Anemia Nocturnal leg cramps Surgical History Surgical History Status post total left knee replacement 06/11/21 Dr Martin Hx of hysterectomy cervical dysplasia History of heart artery stent RCA stent 2000; IRIS stent 05/16/2004; taxus stent distal to 04/29 stent 10/2004 Family History Family History Father Heart disease Heart attack Mother High blood pressure Brother Cancer Social History Social History Smoking Status: Never smoker Second hand tobacco smoke exposure: No Do you dip or chew tobacco?: No Do you vape?: No Living arrangement: At home Living Condition: With family Relationship: Level: Independent Home Mobility Equipment: Walker Do you feel safe in your home environment?: Yes Suffered physical, verbal, emotional, or financial abuse?: No ETOH Use: None Substance Use: denies use POLST Patient has POLST: No Exam Exam Vital Signs: Vital Signs x48h Pulse Resp BP Pulse Ox 03/10/25 16:07 73 14 144/80 H 96 Constitutional normal general appearance, no apparent distress (Does not seem in discomfort just lying on the cart.) and average body habitus HENMT normocephalic and head/scalp atraumatic The left chin has some bruising but able to open her mouth and clench her teeth well. Eyes PERRL and EOMs intact bilaterally Neck/C-Spine cervical spine nontender, cervical full ROM noted and supple Lymph no lymphadenopathy noted Chest palpation of chest abnormal (Some tenderness to the right lateral ribs without any noted crepitance or d) Respiratory breath sounds equal bilaterally and normal respiratory effort Cardiovascular normal heart rate noted and regular rhythm noted Gastrointestinal abdomen soft to palpation and nontender to palpation Back/Pelvis no thoracic spine tenderness and lumbar spine tenderness noted (mid lumbar area with mild tenderness to palpation. ) Extremities left lateral hip and posterior SI area with tenderness. Hip itself has no pain with passive external rotation and impaction. Neurology speech normal and GCS 15 Psychiatry mental status grossly normal, oriented x3 and thought process normal Results Vitals Vitals: Vital Signs - 24 hr 03/10/25 13:10 03/10/25 15:21 03/10/25 16:03 Temperature 36.6 C Temperature Source Temporal Artery Scan Pulse Rate 72 Respiratory Rate 18 Blood Pressure 174/94 H O2 Saturation 99 O2 Source Room air Pain Intensity 5 6 5 03/10/25 16:07 03/10/25 16:40 03/10/25 16:58 Temperature Temperature Source Pulse Rate 73 Respiratory Rate 14 Blood Pressure 144/80 H O2 Saturation 96 O2 Source Room air Pain Intensity 6 3 5 03/10/25 16:58 Temperature Temperature Source Pulse Rate Respiratory Rate Blood Pressure O2 Saturation O2 Source Pain Intensity 6 Oxygen O2 Source Room air Labs Labs: Laboratory Tests 03/10/25 13:30 WBC 5.8 RBC 3.98 L Hgb 11.5 L Hct 36.6 L MCV 92.0 MCH 28.9 MCHC 31.4 L RDW 12.0 Plt Count 165 MPV 9.1 Neut # (Auto) 4.2 Lymph # (Auto) 1.2 L Ponce # (Auto) 0.4 Eos # (Auto) 0.1 Baso # (Auto) 0.0 Absolute Nucleated RBC 0.00 Nucleated RBC % 0.0 Sodium 135 Potassium 4.3 Chloride 100 L Carbon Dioxide 29 Anion Gap 6.0 BUN 28 H Creatinine 0.9 Estimated GFR (MDRD) 61 L Glucose 114 H Calcium 9.3 Magnesium 1.8 Total Bilirubin 0.6 AST 17 ALT < 3 L Alkaline Phosphatase 85 Total Protein 7.0 Albumin 4.3 Globulin 2.7 Albumin/Globulin Ratio 1.6 Lipase 63 Rads (name of study) a/p CT: Relevant Findings:: Final report received Interpretation: IMPRESSION: 1. No acute solid organ injury is seen in abdomen or pelvis. No free fluid of free air. 2. Minimally displaced or nondisplaced fractures involving right posterior lateral seventh and eighth rib. Old injury involving right posterior lateral ninth rib. 3. Age indeterminant, likely chronic superior endplate compression deformity at L1 level contains a Schmorl's node. No other compression fracture is seen. 4. Minimally displaced fracture involving left transverse process of L3. 5. No sacral insufficiency fracture. Linear lucency involving superior anterior aspect of greater trochanter, a nondisplaced fracture or incomplete fracture cannot be excluded. Suggest clinical correlation. No other pelvic or hip fracture. Reviewed by: Cruz Parker MD on 03/10/2025 2:[address]: Relevant Findings:: Final report received Interpretation: IMPRESSION: 1. Nondisplaced right posterior lateral eighth rib fracture with adjacent right lower lobe contusion. No significant pleural effusion. No pneumothorax. Dependent atelectasis are seen. 2. No mediastinal hematoma. No pericardial effusion. Moderate to severe three-vessel coronary artery atherosclerotic calcifications. 3. Age-indeterminate and compression fracture involving L1 vertebral body as above. 4. Subacute chronic appearing nondisplaced fracture involving left posterior lateral fifth through seventh ribs. Reviewed by: Cruz Parker MD on 03/10/2025 2:[address]: Relevant Findings:: Final report received and EMP independent interpretation of test Interpretation: IMPRESSION: No acute intracranial pathology. Reviewed by: Cruz Parker MD on 03/10/2025 2:07 PM PDT cervical spine: Relevant Findings:: Final report received Interpretation: IMPRESSION: No acute, displaced fracture or traumatic subluxation. Mild multilevel spondylytic changes throughout cervical spine unchanged from prior study. Reviewed by: Cruz Parker MD on 03/10/2025 2:18 PM PDT PD Medical Decision Making ED course Complexity details: reviewed results, re-evaluated patient (Pt with pain on trying to stand, due to back and left hip pain. Given pain meds of Toradol and Diladuid. Can give more meds. ), considered differential (patient with more fall lately. Has had 2 falls in past day. Has some pain in right chest/back, left pelvis/hip and in lower back. No pain in head. CTs showing more injury than expected due to her level of complaint: 8th rib fracture right, left greater trochanter fx, L3 transverse process fx. ) and d/w patient ED course: Care to Dr. Bourgeois at change of shift. Discharge Plan Discharge Patient Disposition: ED Place in Observation Condition: Stable Clinical Impression: Falls frequently, Intractable back pain Fracture of greater trochanter Qualifiers: Encounter type: initial encounter Fracture type: closed Fracture alignment: nondisplaced Laterality: left Qualified Code(s): S72.115A - Nondisplaced fracture of greater trochanter of left femur, initial encounter for closed fracture Right rib fracture Qualifiers: Encounter type: initial encounter Rib fracture type: single rib Fracture type: closed Qualified Code(s): S22.31XA - Fracture of one rib, right side, initial encounter for closed fracture Fracture of transverse process of lumbar vertebra Qualifiers: Encounter type: initial encounter Fracture type: closed Qualified Code(s): S32.009A - Unspecified fracture of unspecified lumbar vertebra, initial encounter for closed fracture Interventions: ED Admission Assessment Last Done: 03/10/25 18:06
[2025-03-10 13:34] LABS: BASOPHILS % (AUTO) 0.5 %; EOSINOPHILS # (AUTO) 0.1 10^3/uL (0.0-0.7); EOSINOPHILS % (AUTO) 1.4 %; HCT - HEMATOCRIT 36.6 % (37.0-47.0); HGB - HEMOGLOBIN 11.5 g/dL (12.0-16.0); LYMPHOCYTES # (AUTO) 1.2 10^3/uL (1.5-3.5); LYMPHOCYTES % (AUTO) 20.1 %; MEAN CORPUSCULAR HEMOGLOBIN 28.9 pg (27.0-31.0); MEAN CORPUSCULAR HGB CONC 31.4 g/dL (32.0-36.0); MEAN PLATELET VOLUME 9.1 fL (7.9-10.8); MONOCYTES # (AUTO) 0.4 10^3/uL (0.0-1.0); MONOCYTES % (AUTO) 6.5 %; NEUTROPHILS # (AUTO) 4.2 10^3/uL (1.5-6.6); NEUTROPHILS % (AUTO) 71.3 %; PLT - PLATELET COUNT 165 10^3/uL (130-450); RED BLOOD COUNT 3.98 10^6/uL (4.20-5.40); WHITE BLOOD COUNT 5.8 x10^3/uL (4.8-10.8)
--- OUTSIDE RECORDS SUMMARY | 2025-03-10 13:49 | EXTERNAL MEDICAL SUMMARY RPT | Continuity of Care Document ---
Author Organization [place] Address [address] [place] [id number] Phone Problems date description facility 2024-12-12 08:19 Unilateral primary osteoarthrit is, right knee [facility] 2024-12-12 08:19 Osteoarthritis of knee, unspeci [facility] 2024-12-16 14:16 Unilateral primary osteoarthrit is, right knee [facility] 2024-12-16 14:16 Osteoarthritis of knee, unspeci [facility] 2024-12-16 15:17 Unilateral primary osteoarthrit is, right knee [facility] 2024-12-16 15:17 Osteoarthritis of knee, unspeci ed [facility] 2024-12-16 15:28 Unilateral primary osteoarthrit is, right [facility] 2024-12-16 15:28 Osteoarthritis of knee, unspeci fied [facility] 2024-12-16 15:49 Pain in left shoulder idy [facility] 2024-12-16 15:49 Pain in left elbow id[facility] 2024-12-16 17:03 Pain in left shoulder id[facility] 2024-12-16 17:03 Pain in left elbow [facility] 2024-12-17 00:03 Pain in left shoulder idbey [facility] 2024-12-17 00:03 Pain in left elbow idbey [facility] 2024-12-19 11:03 Unilateral primary osteoarthrit is, right knee [facility] 2024-12-19 11:03 Osteoarthritis of knee, unspeci [facility] 2024-12-29 15:28 Unspecified injury of head, ini tial encounter [facility] 2025-01-05 09:23 Pain in left shoulder idbey [facility] 2025-01-05 09:23 Pain in left elbow [facility] 2025-01-06 13:18 Unspecified injury of head, [facility] 2025-01-07 14:11 Unspecified injury of head, ini tial encounter [facility] 2025-01-08 15:44 [facility] 2025-01-08 15:44 Pain in left elbow [facility] 2025-01-08 15:44 Unspecified injury of head, ini [facility] 2025-01-08 15:44 Unspecified sprain o f left shoulder joint, initial encounter [facility] Results/Labs test date facility value unit notes Result panel 1 NUCLEATED RED BLOOD CELLS AUTO 2024-12-25 15:31 [facility] 0.0 /100wbc (missing) BASOPHILS # (AUTO) 2024-12-25 15:31 [facility] 0.0 10 3/ul (missing) NRBC ABSOLUTE COUNT (AUTO) 2024-12-25 15:31 [facility] 0.00 x10 3/ul (missing) EOSINOPHILS # (AUTO) 2024-12-25 15:31 [facility] 0.2 10 3/ul (missing) MONOCYTES # (AUTO) 2024-12-25 15:31 [facility] 0.4 10 3/ul (missing) LYMPHOCYTES # (AUTO) 2024-12-25 15:31 [facility] 1.1 10 3/ul (missing) CREATININE 2024-12-25 15:31 [facility] 1.1 mg/dl As of May 2023 testing method has changed, this may include reference ranges. ANION GAP 2024-12-25 15:31 [facility] 10.0 (missing ) (missing) CALCIUM 2024-12-25 15:31 [facility] 10.0 mg/dl As of May 2023 testing method has changed, this may include reference ranges. CHLORIDE 2024-12-25 15:31 [facility] 100 mmol/l As of May 2023 testing method has changed, this may include reference ranges. HGB - HEMOGLOBIN 2024-12-25 15:31 [facility] 11.6 g /dl (missing) RED CELL DISTRIBUTION WIDTH 2024-12-25 15:31 [facility] 12.3 % (missing) SODIUM 2024-12-25 15:31 [facility] 140 mmol/l As of May 2023 testing method has changed, this may include reference ranges. PLT - PLATELET COUNT 2024-12-25 15:31 [facility] 10 3/ul (missing) MEAN CORPUSCULAR HEMOGLOBIN 2024-12-25 15:31 [facility] 29.7 pg (missing) NEUTROPHILS # (AUTO) 2024-12-25 15:31 [facility] 3.1 10 3/ul (missing) POTASSIUM 2024-12-25 15:31 [facility] 3.9 mmol/l As of May 2023 testing method has changed, this may include reference ranges. RED BLOOD COUNT 2024-12-25 15:31 [facility] 3.90 10 6/ul (missing) CARBON DIOXIDE - CO2 2024-12-25 15:31 [facility] 30 mmol/l As of May 2023 testing method has changed, this may include reference ranges. MEAN CORPUSCULAR HGB CONC 2024-12-25 15:31 [facility] 33.0 g/dl (missing) HCT - HEMATOCRIT 2024-12-25 15:31 [facility] 35.2 % (missing) BUN - BLOOD UREA NITROGEN 2024-12-25 15:31 [facility] 37 mg/dl As of May testing method has changed, this may include reference ranges. WHITE BLOOD COUNT 2024-12-25 15:31 [facility] 4.9 x10 3/ul (missing) GFR - MDRD 2024-12-25 15:31 [facility] 48 (missin g) Social History date description facility
[2025-03-10 13:51] LABS: LIPASE 63 U/L (11-82); MAGNESIUM 1.8 mg/dL (1.7-2.3)
[2025-03-10 13:54] LABS: ALBUMIN 4.3 g/dL (3.2-5.5); ALBUMIN/GLOBULIN RATIO 1.6 (1.0-2.2); ALKALINE PHOSPHATASE 85 IU/L (42-121); ALT ALANINE AMINOTRANSFERASE < 3 IU/L (10-60); AST ASPARTATE AMINOTRANSFERASE 17 IU/L (10-42); BILIRUBIN,TOTAL 0.6 mg/dL (0.2-1.0); BUN - BLOOD UREA NITROGEN 28 mg/dL (6-20); CALCIUM 9.3 mg/dL (8.5-10.3); CARBON DIOXIDE - CO2 29 mmol/L (21-32); CHLORIDE 100 mmol/L (101-111); CREATININE 0.9 mg/dL (0.6-1.3); GFR - MDRD 61 (>89); GLUCOSE 114 mg/dL (74-104); POTASSIUM 4.3 mmol/L (3.5-4.5); SODIUM 135 mmol/L (135-145)
--- NOTE | 2025-03-10 14:08 | CT Report ---
PROCEDURE: CT Head WO INDICATIONS: fall, struck head TECHNIQUE: Noncontrast 4.5 mm thick angled axial sections acquired from the foramen magnum to the vertex. For r adiation dose reduction, the following was used: automated exposure control, adjustment of mA and/or kV according to patient size. COMPARISON: 12/25/2024 FINDINGS: Image quality: Excellent. CSF spaces: Basal cisterns are patent. No extra-axial fluid collections. The ventricles are symmet pamella in size and shape. Brain: No intracranial bleeds or masses. There is cerebral volume loss for age, with resultant vent ricular and sulcal prominence. There are periventricular and deep white matter chronic small vessel ischemic changes. There is intracranial internal carotid artery atherosclerosis. Skull and face: Calvarium and visualized facial bones appear intact, without suspicious lesions. Sinuses: Visualized sinuses and mastoids are clear. IMPRESSION: No acute intracranial pathology. Reviewed by: Cruz Parker MD on 03/10/2025 2:07 PM PDT Approved by: Cruz Parker MD on 03/10/2025 2:07 PM PDT Station ID: [id number]
--- NOTE | 2025-03-10 14:20 | CT Report ---
PROCEDURE: CT Cervical Spine WO INDICATIONS: fall, struck head/face TECHNIQUE: Noncontrast 3 mm thick sections acquired from the skull base to the T4 level. Sagittal and coronal r eformats were then constructed. For radiation dose reduction, the following was used: automated exp osure control, adjustment of mA and/or kV according to patient size. COMPARISON: 12/25/2024. FINDINGS: Image quality: Excellent. Bones: No fractures or dislocations. Degenerative endplate changes, loss of disc height and bilater al uncovertebral hypertrophic changes are noted throughout cervical spine. No significant central can al stenosis or neural foraminal narrowing. Visualized superior ribs are intact. Soft tissues: Prevertebral soft tissues are normal in thickness. No paravertebral hematomas. No ap ical pneumothoraces. IMPRESSION: No acute, displaced fracture or traumatic subluxation. Mild multilevel spondylytic changes throughout cervical spine unchanged from prior study. Reviewed by: Cruz Parker MD on 03/10/2025 2:18 PM PDT Approved by: Cruz Parker MD on 03/10/2025 2:18 PM PDT Station ID: [id number]
--- NOTE | 2025-03-10 14:28 | CT Report ---
PROCEDURE: CT Chest WO INDICATIONS: fall, right lateral chestwall tender TECHNIQUE: A CT scan of the chest was performed. Intravenous contrast media was not administered. Images were re corded and evaluated at appropriate window settings. Reformats: axial MIP of the chest, coronal and s agittal. For radiation dose reduction, the following was used: automated exposure control, adjustment of mA and/or kV according to patient size. COMPARISON: None. FINDINGS: Image quality: Diagnostic. Chest wall and lower neck: No thyroid nodule which requires sonographic follow up. No axillary or sup raclavicular adenopathy by size. Lungs and pleura: Mild centrilobular emphysema. Dependent atelectasis and patchy groundglass opacitie s are seen scattered in bilateral lung coulter. Possible contusion along posterior lateral aspect of r ight lower lobe is seen.. No pleural effusions. No pneumothorax. No suspicious pulmonary nodules whi ch require follow up. Mediastinum: Heart size is mildly enlarged. No pericardial effusion. No large vessel abnormality. No mediastinal adenopathy by size criteria. 3 vessel coronary artery atherosclerotic calcifications are seen. Bones: No aggressive osseous abnormality. Age indeterminant anterior wedge compression deformity invo lving superior endplate of L1 is seen with retropulsion of posterior wall causing moderate central ca nal stenosis at this level. There is up to 40% loss of L1 vertebral body height anteriorly. Nondispla walter fracture involving right posterior lateral eighth rib is seen series 2 image 56. Likely subacute to old deformity involving left lateral sixth and possibly fifth and seventh seventh ribs are seen se andres 2 image 50, series 6 image 84. Upper Abdomen: Please refer to CT of abdomen and pelvis findings from the same day.. IMPRESSION: 1. Nondisplaced right posterior lateral eighth rib fracture with adjacent right lower lobe contusion. No significant pleural effusion. No pneumothorax. Dependent atelectasis are seen. 2. No mediastinal hematoma. No pericardial effusion. Moderate to severe three-vessel coronary artery atherosclerotic calcifications. 3. Age-indeterminate and compression fracture involving L1 vertebral body as above. 4. Subacute chronic appearing nondisplaced fracture involving left posterior lateral fifth through se venth ribs. Reviewed by: Cruz Parker MD on 03/10/2025 2:26 PM PDT Approved by: Cruz Parker MD on 03/10/2025 2:26 PM PDT Station ID: [id number]
--- NOTE | 2025-03-10 14:37 | CT Report ---
PROCEDURE: CT Abdomen/Pelvis WO INDICATIONS: left hip/pelvic/lowback pain from fall TECHNIQUE: A CT scan of the abdomen and pelvis was performed without the use of intravenous contrast. Images we re recorded and evaluated at appropriate window settings. Reformats: coronal and sagittal. For radiat ion dose reduction, the following was used: automated exposure control, adjustment of mA and/or kV ac cording to patient size. COMPARISON: None. FINDINGS: Image quality: Diagnostic. Lower chest: Please refer to CT chest findings from the same date. Liver: No contour-deforming mass. Gallbladder: No radiopaque stones or wall thickening. Biliary tree: No intrahepatic or extrahepatic dilation, accounting for age. Spleen: No splenomegaly. Pancreas: No pancreatic ductal dilation. Adrenals: No adrenal nodule. Kidneys and ureters: No hydronephrosis. No contour-deforming mass. Stomach, bowel and peritoneum: There is no bowel obstruction. No abnormal bowel wall thickening or me senteric fat stranding. Moderate fecal stasis throughout the colon is seen. No abscess collection. No free fluid of free air. Lymph nodes: No central or retroperitoneal adenopathy. Vessels: No infrarenal aortic aneurysm. Moderate atherosclerotic calcifications are seen in the abdom inal aorta and bilateral iliac arteries. Reproductive organs: Unremarkable. Bladder: No abnormal bladder wall thickening. No calcified bladder stones. Pelvic lymph nodes: No adenopathy by size criteria. Bones: No aggressive osseous abnormality. Acute minimally displaced fracture involving left transvers e process of L3 series 2 image 60. No acute sacral fracture. Pelvic ring is intact. Age indeterminant compression deformity involving superior endplate of L1 contains a Schmorl's node likely represent c hronic process. No other compression fracture is seen. Degenerative disc disease throughout lumbar sp ine and visualized lower thoracic spine is seen. Likely old injury involving right posterior lateral ninth rib. Nondisplaced or minimally displaced fractures involving right posterior lateral seventh an d eighth ribs are seen series 2 image 13. Linear lucency involving anterior aspect of superior left g reater trochanter seen on series 2 image 121 and series 4 image 55. Other: No significant ventral or inguinal hernia. IMPRESSION: 1. No acute solid organ injury is seen in abdomen or pelvis. No free fluid of free air. 2. Minimally displaced or nondisplaced fractures involving right posterior lateral seventh and eighth rib. Old injury involving right posterior lateral ninth rib. 3. Age indeterminant, likely chronic superior endplate compression deformity at L1 level contains a S chmorl's node. No other compression fracture is seen. 4. Minimally displaced fracture involving left transverse process of L3. 5. No sacral insufficiency fracture. Linear lucency involving superior anterior aspect of greater tro chanter, a nondisplaced fracture or incomplete fracture cannot be excluded. Suggest clinical correlat ion. No other pelvic or hip fracture. Reviewed by: Cruz Parker MD on 03/10/2025 2:36 PM PDT Approved by: Cruz Parker MD on 03/10/2025 2:36 PM PDT Station ID: [id number]
[2025-03-10] MEDS: KETOROLAC 15 MG/ML VIAL IM STA (15:21)
[2025-03-10] MEDS: HYDROmorphone 1 MG/ML SYRINGE IM STA (15:22)
[2025-03-10] MEDS: MORPHINE 2 MG/ML CARPUJECT IVP STA ×2 (16:03→16:58)
--- NOTE | 2025-03-10 16:11 | ED Physician Documentation ---
ED Addendum Addendum Addendum: Care from Dr. Craig approximately 3:30 PM. Briefly 75-year-old woman with coronary disease and history of Parkinson's had a ground-level fall and has a rib fracture, transverse process fracture and a greater trochanter fracture. The pain is uncontrolled and she is not able to walk or bear weight. She had already received from Dr. Craig 1 mg of IM Dilaudid and could not bear weight after that. I have ordered some morphine. She received divided doses narcotics but still had uncontrolled pain and was not able to walk even with assistance and a walker. It was also noted that her right second toe was painful and swollen, x-ray was done and negative of that. Call the hospitalist service for admission at approximately 4:45 PM. Spoke with KENDRA Segura for observation at 5:23 PM. Discharge Plan Discharge Patient Disposition: ED Place in Observation Condition: Stable Clinical Impression: Falls frequently Fracture of greater trochanter Qualifiers: Encounter type: initial encounter Fracture type: closed Fracture alignment: nondisplaced Laterality: left Qualified Code(s): S72.115A - Nondisplaced fracture of greater trochanter of left femur, initial encounter for closed fracture Right rib fracture Qualifiers: Encounter type: initial encounter Rib fracture type: single rib Fracture type: closed Qualified Code(s): S22.31XA - Fracture of one rib, right side, initial encounter for closed fracture Fracture of transverse process of lumbar vertebra Qualifiers: Encounter type: initial encounter Fracture type: closed Qualified Code(s): S32.009A - Unspecified fracture of unspecified lumbar vertebra, initial encounter for closed fracture Prescriptions: No Action hydrochlorothiazide 25 mg tablet 25 mg PO DAILY Qty: 90 3RF carbidopa-levodopa [Sinemet] 25-100 mg tablet 1 tab PO TID Qty: 270 1RF carvedilol [Coreg] 25 mg tablet 25 mg PO BID Qty: 180 3RF losartan 25 mg tablet 25 mg PO QDAY Qty: 90 2RF atorvastatin [Lipitor] 80 mg tablet 80 mg PO DAILY Qty: 90 2RF fish oil-dha-epa 1 EACH capsule 1 ea PO DAILY Januvia 100 MG tablet 100 mg PO DAILY aspirin 81 MG tablet,delayed release (DR/EC) 81 mg PO DAILY calcium carbonate-vitamin D3 1 EACH tablet 1 ea PO DAILY magnesium oxide 400 MG tablet 400 mg PO HS cholecalciferol (vitamin D3) 25 MCG tablet 25 mcg PO DAILY metformin [Glucophage XR] 500 mg tablet extended release 24 hr 1,500 mg PO QDAY acetaminophen 500 mg capsule 1,000 mg PO Q6H PRN (Reason: fever or pain) Patient Comments: arthritis pain Print Language: Cuban Stand Alone Forms: PCP List
--- NOTE | 2025-03-10 17:02 | XRAY Report ---
PROCEDURE: XR Foot 3+V RT INDICATIONS: injury TECHNIQUE: 3 views of the foot were acquired. COMPARISON: None. FINDINGS: Bones: No fractures or dislocations. Mild to moderate degenerative changes at the foot. Posterior ca lcaneal enthesophyte. No suspicious bony lesions. Soft tissues: No tibiotalar joint effusion. Achilles tendon appears normal. IMPRESSION: No acute bony abnormality. If pain persists with conservative management, consider repeat x-ray in 10 -14 days or cross-sectional imaging. Reviewed by: Patrick Edwards MD on 03/10/2025 5:01 PM PDT Approved by: Patrick Edwards MD on 03/10/2025 5:01 PM PDT Station ID: [id number]
--- NOTE | 2025-03-10 17:15 | CONSULTATION NOTE ---
History of Present Illness History of Present Illness HPI Comment/Other: CC: LEFT Hip pain and Right chest wall pain 75yo F with a past medical history of Parkinson's disease, hypertension, diabetes, chronic kidney disease and dementia presents to the emergency department after a ground-level fall. On presentation she complained of pain in the left hip and right chest wall pain. Denies loss of consciousness. At baseline she ambulates with a walker. PFSH Active Problems All Active Problems (Updated 03/10/25 @ 15:19 by Floyd Craig MD) Fracture of transverse process of lumbar vertebra (Acute) Right rib fracture (Acute) Falls frequently (Acute) Fracture of greater trochanter (Acute) Parkinson disease with dyskinesia (Acute) Bilateral primary osteoarthritis of knee (Acute) Chronic kidney disease due to type 2 diabetes mellitus (Acute) Essential (primary) hypertension (Acute) Hyperlipidemia (Acute) Diabetes mellitus with hyperglycemia (Acute) Dementia in other diseases classified elsewhere, moderate, without behavioral disturbance, psychotic disturbance, mood disturbance, and anxiety (Acute) Medical History Medical History (Updated 03/10/25 @ 15:19 by Floyd Craig MD) Bradykinesia Chronic knee pain Acute head trauma Repeated falls Rosacea Hearing loss, bilateral CAD (coronary artery disease) Anemia Nocturnal leg cramps Surgical History Surgical History Status post total left knee replacement 06/11/21 Dr Martin Hx of hysterectomy cervical dysplasia History of heart artery stent RCA stent 2000; IRIS stent 05/16/2004; taxus stent distal to 04/29 stent 10/2004 Family History Family History Father Heart disease Heart attack Mother High blood pressure Brother Cancer Social History Social History Smoking Status: Never smoker Second hand tobacco smoke exposure: No Do you dip or chew tobacco?: No Do you vape?: No Living arrangement: At home Living Condition: With family Relationship: Do you feel safe in your home environment?: Yes Suffered physical, verbal, emotional, or financial abuse?: No ETOH Use: None Substance Use: denies use POLST Patient has POLST: No Meds/Allgy Home Medications Ambulatory Orders Medication Instructions Recorded Confirmed fish oil-dha-epa 1,200 mg-144 1 ea PO DAILY 08/06/14 03/10/25 mg-216 mg capsule sitagliptin phosphate 100 mg 100 mg PO DAILY 12/20/18 03/10/25 tablet (Januvia) aspirin 81 mg tablet,delayed 81 mg PO DAILY 02/09/21 03/10/25 release calcium 600 mg (as 1 ea PO DAILY 02/09/21 03/10/25 carbonate)-vitamin D3 5 mcg (200 unit) tablet cholecalciferol (vitamin D3) 25 25 mcg PO DAILY 02/09/21 03/10/25 mcg (1,000 unit) tablet magnesium oxide 400 mg (241.3 mg 400 mg PO HS 02/09/21 03/10/25 magnesium) tablet acetaminophen 500 mg capsule 1,000 mg PO Q6H PRN fever or pain 10/08/24 03/10/25 metformin 500 mg tablet,extended 1,500 mg PO QDAY 10/08/24 03/10/25 release 24 hr (Glucophage XR) hydrochlorothiazide 25 mg tablet 25 mg PO DAILY #90 tabs 12/10/24 03/10/25 carbidopa 25 mg-levodopa 100 mg 1 tab PO TID #270 tabs 01/05/25 03/10/25 tablet (Sinemet) carvedilol 25 mg tablet (Coreg) 25 mg PO BID #180 tabs 01/05/25 03/10/25 atorvastatin 80 mg tablet (Lipitor) 80 mg PO DAILY #90 tabs 02/28/25 03/10/25 losartan 25 mg tablet 25 mg PO QDAY #90 tabs 02/28/25 03/10/25 Allergies Allergies Allergy/AdvReac Type Severity Reaction Status Date / Time No Known Drug Allergies Allergy Verified 03/10/25 13:12 Results Lab Results 03/10/25 13:30 03/10/25 13:30 Other Lab Results: Lab Results x24hrs 03/10/25 Range/Units 13:30 WBC 5.8 (4.8-10.8) x10^3/uL RBC 3.98 L (4.20-5.40) 10^6/uL Hgb 11.5 L (12.0-16.0) g/dL Hct 36.6 L (37.0-47.0) % MCV 92.0 (81.0-99.0) fL MCH 28.9 (27.0-31.0) pg MCHC 31.4 L (32.0-36.0) g/dL RDW 12.0 (12.0-15.0) % Plt Count 165 (130-450) 10^3/uL MPV 9.1 (7.9-10.8) fL Neut # (Auto) 4.2 (1.5-6.6) 10^3/uL Lymph # (Auto) 1.2 L (1.5-3.5) 10^3/uL [place] # (Auto) 0.4 (0.0-1.0) 10^3/uL Eos # (Auto) 0.1 (0.0-0.7) 10^3/uL Baso # (Auto) 0.0 (0.0-0.1) 10^3/uL Absolute Nucleated RBC 0.00 x10^3/uL Nucleated RBC % 0.0 /100WBC Sodium 135 (135-145) mmol/L Potassium 4.3 (3.5-4.5) mmol/L Chloride 100 L (101-111) mmol/L Carbon Dioxide 29 (21-32) mmol/L Anion Gap 6.0 (6-13) BUN 28 H (6-20) mg/dL Creatinine 0.9 (0.6-1.3) mg/dL Estimated GFR (MDRD) 61 L (>89) Glucose 114 H (74-104) mg/dL Calcium 9.3 (8.5-10.3) mg/dL Magnesium 1.8 (1.7-2.3) mg/dL Total Bilirubin 0.6 (0.2-1.0) mg/dL AST 17 (10-42) IU/L ALT < 3 L (10-60) IU/L Alkaline Phosphatase 85 (42-121) IU/L Total Protein 7.0 (6.4-8.9) g/dL Albumin 4.3 (3.2-5.5) g/dL Globulin 2.7 (2.1-4.2) g/dL Albumin/Globulin Ratio 1.6 (1.0-2.2) Lipase 63 (11-82) U/L Exam Exam Vital Signs: Vital Signs x48h Temp Pulse Resp BP Pulse Ox 03/10/25 16:07 73 14 144/80 H 96 03/10/25 13:10 36.6 C 72 18 174/94 H 99 Imaging Right foot radiographs on March 10, 2025: No fractures or dislocations. Mild degenerative changes throughout the foot. CT scan of the chest on March 10, 2025: Age-indeterminate anterior wedge compression deformity involving the superior endplate of L1. There is retropulsion of the posterior wall causing moderate central canal stenosis at this level. Nondisplaced fracture involving the right posterior lateral eighth rib. CT scan of the chest abdomen pelvis on March 10, 2025: Previously mentioned L1 compression fracture. Degenerative disc disease throughout the lumbar spine. Linear lucency involving the anterior aspect of the superior left greater trochanter. Minimally displaced left transverse process fracture of L3. CT scan of the cervical spine. No fractures or dislocations. Mild multilevel spondylitic changes throughout the cervical spine. Conclusion/Plan Problem List (1) Fracture of transverse process of lumbar vertebra: Qualifiers: Encounter type: initial encounter Fracture type: closed Qualified Code(s): S32.009A - Unspecified fracture of unspecified lumbar vertebra, initial encounter for closed fracture (2) Right rib fracture: Qualifiers: Encounter type: initial encounter Fracture type: closed Rib fracture type: single rib Qualified Code(s): S22.31XA - Fracture of one rib, right side, initial encounter for closed fracture (3) Fracture of greater trochanter: Qualifiers: Encounter type: initial encounter Fracture alignment: nondisplaced F racture type: closed Laterality: left Qualified Code(s): S72.115A - Nondisplaced fracture of greater trochanter of left femur, initial encounter for closed fracture Plan 75yo F presents to the emergency department following a ground-level fall. From an orthopedic standpoint there was concern for her L1 anterior wedge compression deformity, linear lucency in the left greater trochanter and minimally displaced left transverse process fracture of L3. Each of these injuries were evaluated and they can be treated nonoperatively. There are no restrictions to her activities and that she can be weightbearing as tolerated. Activities as tolerated Weightbearing as tolerated Benefit from walker for balance Recommend physical therapy She will follow-up with orthopedics on an outpatient basis with regards to her potential left greater trochanter fracture The patient had the treatment plan explained, questions answered and seemed satisfied with the plan. There were no apparent barriers to communication. The documentation in this note may have been entered with the assistance of computer voice recognition and dictation software. Therefore, it may contain unintended errors in text, spelling, punctuation, or grammar.Eduardo Maki MD Orthopedic Surgeon Lab Results 03/10/25 13:30 03/10/25 13:30
--- NOTE | 2025-03-10 17:42 | HISTORY & PHYSICAL EXAMINATION ---
Chief Complaint Chief Complaint Chief Complaint: Pain after fall History of Present Illness Admitted From Admitted From:: Home with , grandchildren History Obtained From History obtained from: Son at bedside Exam Limitations: Patient has Parkinson's dementia and has received a lot of opiate pain med History of Present Illness HPI Comment/Other: 75-year-old female H significant for CAD, Parkinson's dementia, diabetes managed with Oral antidiabetics presents after fall. Family reports that she has fairly frequent falls but of not been worked up and that she has fallen twice in the past 16 hours. She has visible injuries to her left chin and pain in her pelvis and hip on the left and right-sided rib pain. In the ER, CT head was performed which showed no acute abnormality. CT C-spine no acute abnormality. CT chest with nondisplaced right posterior eighth rib fractures as well as age-indeterminate compression fracture involving L1. It also shows subacute chronic appearing nondisplaced fracture involving left 5th through 7th ribs. CT abdomen/pelvis shows minimally displaced/nondisplaced fractures involving right posterior lateral 7th and 8th rib as well as a Linear lucency suspicious for incomplete fracture of greater trochanter. X-ray foot with no acute abnormality. Ortho was contacted by ER provider, and they reported that this is likely nonoperative. Pain control was attempted with multiple IV opiates without effect. Patient is unable to walk due to pain. Hospitalist was contacted for observation for intractable pain secondary to these fractures Meds/Allgy Home Medications Ambulatory Orders Medication Instructions Recorded Confirmed fish oil-dha-epa 1,200 mg-144 1 ea PO DAILY 08/06/14 03/10/25 mg-216 mg capsule sitagliptin phosphate 100 mg 100 mg PO DAILY 12/20/18 03/10/25 tablet (Januvia) aspirin 81 mg tablet,delayed 81 mg PO DAILY 02/09/21 03/10/25 release calcium 600 mg (as 1 ea PO DAILY 02/09/21 03/10/25 carbonate)-vitamin D3 5 mcg (200 unit) tablet cholecalciferol (vitamin D3) 25 25 mcg PO DAILY 02/09/21 03/10/25 mcg (1,000 unit) tablet magnesium oxide 400 mg (241.3 mg 400 mg PO HS 02/09/21 03/10/25 magnesium) tablet acetaminophen 500 mg capsule 1,000 mg PO Q6H PRN fever or pain 10/08/24 03/10/25 metformin 500 mg tablet,extended 1,500 mg PO QDAY 10/08/24 03/10/25 release 24 hr (Glucophage XR) hydrochlorothiazide 25 mg tablet 25 mg PO DAILY #90 tabs 12/10/24 03/10/25 carbidopa 25 mg-levodopa 100 mg 1 tab PO TID #270 tabs 01/05/25 03/10/25 tablet (Sinemet) carvedilol 25 mg tablet (Coreg) 25 mg PO BID #180 tabs 01/05/25 03/10/25 atorvastatin 80 mg tablet (Lipitor) 80 mg PO DAILY #90 tabs 02/28/25 03/10/25 losartan 25 mg tablet 25 mg PO QDAY #90 tabs 02/28/25 03/10/25 Allergies Allergies Allergy/AdvReac Type Severity Reaction Status Date / Time No Known Drug Allergies Allergy Verified 03/10/25 13:12 PFSH Active Problems All Active Problems (Updated 03/10/25 @ 17:50 by Nghia Segura DNP) Fracture (Acute) Intractable pain (Acute) Fracture of transverse process of lumbar vertebra (Acute) Right rib fracture (Acute) Falls frequently (Acute) Fracture of greater trochanter (Acute) Parkinson disease with dyskinesia (Acute) Bilateral primary osteoarthritis of knee (Acute) Chronic kidney disease due to type 2 diabetes mellitus (Acute) Essential (primary) hypertension (Acute) Hyperlipidemia (Acute) Diabetes mellitus with hyperglycemia (Acute) Dementia in other diseases classified elsewhere, moderate, without behavioral disturbance, psychotic disturbance, mood disturbance, and anxiety (Acute) Medical History Medical History (Updated 03/10/25 @ 17:50 by Nghia Segura DNP) Bradykinesia Chronic knee pain Acute head trauma Repeated falls Rosacea Hearing loss, bilateral CAD (coronary artery disease) Anemia Nocturnal leg cramps Surgical History Surgical History Status post total left knee replacement 06/11/21 Dr Martin Hx of hysterectomy cervical dysplasia History of heart artery stent RCA stent 2000; IRIS stent 05/16/2004; taxus stent distal to 04/29 stent 10/2004 Family History Family History Father Heart disease Heart attack Mother High blood pressure Brother Cancer Social History Social History Smoking Status: Never smoker Second hand tobacco smoke exposure: No Do you dip or chew tobacco?: No Do you vape?: No Living arrangement: At home Living Condition: With family Relationship: Do you feel safe in your home environment?: Yes Suffered physical, verbal, emotional, or financial abuse?: No ETOH Use: None Substance Use: denies use POLST Patient has POLST: No Review of Systems Patient is severely demented and under the influence of narcotics. She is noninteractive with interview. Family at bedside report no symptoms other than more frequent falls Status of ROS: unobtainable due to mental status Exam Exam Vital Signs: Vital Signs x48h Temp Pulse Resp BP Pulse Ox 03/10/25 18:06 62 16 132/73 H 96 03/10/25 16:07 73 14 144/80 H 96 03/10/25 13:10 36.6 C 72 18 174/94 H 99 Elderly female no acute distress Constitutional normal general appearance and no apparent distress HENMT normocephalic Bruising on left chin Eyes PERRL Neck/C-Spine visual inspection normal Lymph no lymphadenopathy noted Chest inspection of chest normal Chest tender to palpation Respiratory breath sounds equal bilaterally and normal respiratory effort Cardiovascular normal heart rate noted Gastrointestinal abdomen normal to inspection Extremities Bruising on toe of right foot Neurology Somnolent from pain medication. Not interactive with interview. Moves extremities spontaneously Skin Scattered bruising Conclusion/Plan Problem List (1) Intractable pain: Plan: Patient received 3 different doses of IV pain medication as still unable to walk. 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 SSI Qualifiers: Diabetes mellitus assisted insulin use: without assisted use Diabetes mellitus type: type 2 Qualified Code(s): E11.65 - Type 2 diabetes mellitus with hyperglycemia (5) Essential (primary) hypertension: Plan: Continue home dose carvedilol, hydrochlorothiazide, losartan Vital signs per unit protocol Plan Placed in observation for intractable pain Full code Her is her surrogate decision-maker Family reports she had been seeing Corrie Olivia as her PCP. Corrie Olivia no longer works at that clinic, they are unsure who her PCP is now Lab Results 03/10/25 13:30 03/10/25 13:30 Diagnostic Imaging Results Diagnostic Imaging Results: positive Final report reviewed Diagnostic Imaging Results Comments: CTs, x-rays as noted above Core Measures Anticipated LOS I expect patient to be DC'd or transferred within 96 hours.: Yes DVT/VTE - Prophylaxis VTE/DVT Device ordered at admit?: Yes
[2025-03-10] MEDS ORDERED: ONDANSETRON ODT 4 MG TABLET TL PRN (18:15)
[2025-03-10] MEDS ORDERED: ONDANSETRON 4 MG/2 ML VIAL IVP PRN (18:15)
[2025-03-10] MEDS: ACETAMINOPHEN 325 MG TABLET PO PRN (18:52)
[2025-03-10] MEDS: LOSARTAN 50 MG TABLET PO SCH (18:52)
[2025-03-10] MEDS: MAGNESIUM OXIDE 400 MG TABLET PO SCH (21:15)
[2025-03-10] MEDS: CARBIDOPA/LEVODOPA 25 MG/100 MG TABLET PO SCH (21:15)
[2025-03-10] MEDS: ACETAMINOPHEN 500 MG TABLET PO SCH (21:16)
[2025-03-10] MEDS: carvediloL 12.5 MG TABLET PO SCH (21:16)
[2025-03-10] MEDS: INSULIN LISPRO 300 UNIT/3 ML PEN SUBQ SCH (21:17)
[2025-03-11] MEDS: SODIUM CHLORIDE FLUSH 0.9% 10 ML SYRINGE IVP SCH (00:17)
[2025-03-11] MEDS: HYDROmorphone 0.5 MG/0.5 ML SYRINGE IVP PRN (04:25)
[2025-03-11 06:05] LABS: BASOPHILS % (AUTO) 0.9 %; EOSINOPHILS # (AUTO) 0.2 10^3/uL (0.0-0.7); HCT - HEMATOCRIT 32.6 % (37.0-47.0); HGB - HEMOGLOBIN 10.8 g/dL (12.0-16.0); LYMPHOCYTES # (AUTO) 1.7 10^3/uL (1.5-3.5); LYMPHOCYTES % (AUTO) 37.4 %; MEAN CORPUSCULAR HGB CONC 33.1 g/dL (32.0-36.0); MEAN CORPUSCULAR VOLUME 90.6 fL (81.0-99.0); MEAN PLATELET VOLUME 9.9 fL (7.9-10.8); MONOCYTES # (AUTO) 0.4 10^3/uL (0.0-1.0); MONOCYTES % (AUTO) 7.9 %; NEUTROPHILS # (AUTO) 2.3 10^3/uL (1.5-6.6); NEUTROPHILS % (AUTO) 49.8 %; PLT - PLATELET COUNT 159 10^3/uL (130-450); RED CELL DISTRIBUTION WIDTH 12.2 % (12.0-15.0); WHITE BLOOD COUNT 4.6 x10^3/uL (4.8-10.8)
[2025-03-11 06:16] LABS: CALCIUM 8.9 mg/dL (8.5-10.3)
[2025-03-11] MEDS: OMEGA-3 ACID ETHYL ESTERS 1 GM CAPSULE PO SCH (08:44)
[2025-03-11] MEDS: CHOLECALCIFEROL 25 MCG TABLET PO SCH (08:44)
[2025-03-11] MEDS: ASPIRIN EC 81 MG TABLET PO SCH (08:45)
[2025-03-11] MEDS: CALCIUM CARB (OYSTER SHELL) 500 MG TABLET PO SCH (08:45)
[2025-03-11] MEDS: hydroCHLOROthiazide 25 MG TABLET PO SCH (08:45)
[2025-03-11] MEDS: ATORVASTATIN 40 MG TABLET PO SCH (08:45)
[2025-03-11 11:42] LABS: ESTIMATED AVERAGE GLUCOSE 128 mg/dL (70-100); HEMOGLOBIN A1c% 6.1 % (4.27-6.07)
--- NOTE | 2025-03-11 11:56 | POST OP PROGRESS NOTE ---
Subjective General Admit Date: 03/10/25 Procedure Date: 02/09/21 Post Op Days: 1491 Other Other Information/Narrative: 75yo F with rib, back and left hip pain who was admitted for pain control. Reports left hip pain with attempts at standing. Her history was limited by her drowsiness however her family answered most of her questions. Ortho Surgical Progress Note Problem List Problem List: 75F with lumbar compression fracture, transerse process fracture, rib fractures and potential left hip greater trochanter fracture. She had no pain with examination of her left hip. The "fracture line" seen on the CT is likely not a fracture. At this point I would have her WBAT and ROMAT. THere are no limitations with regards to her orthopedic injuries. Activity Modification WBAT ROMAT PT to evaluate her placement Ortho will call the patient with a follow up appt. Ortho will sign off for now. Please let us know if you have any other questions. Eduardo Maki Ortho Exam Exam Vital Signs: Vital Signs x48h Temp Pulse Resp BP Pulse Ox 03/11/25 07:47 36.4 C L 67 16 134/61 H 95 PE: Negative long roll. Able to range the hip from 0-90 degrees without pain 10 degrees for IR and ER without pain. Imaging Right foot radiographs on March 10, 2025: No fractures or dislocations. Mild degenerative changes throughout the foot. CT scan of the chest on March 10, 2025: Age-indeterminate anterior wedge compression deformity involving the superior endplate of L1. There is retropulsion of the posterior wall causing moderate central canal stenosis at this level. Nondisplaced fracture involving the right posterior lateral eighth rib. CT scan of the chest abdomen pelvis on March 10, 2025: Previously mentioned L1 compression fracture. Degenerative disc disease throughout the lumbar spine. Linear lucency involving the anterior aspect of the superior left greater trochanter. Minimally displaced left transverse process fracture of L3. CT scan of the cervical spine. No fractures or dislocations. Mild multilevel spondylitic changes throughout the cervical spine.
--- NOTE | 2025-03-11 12:16 | PHARMACY PROGRESS NOTE ---
Best Possible Medication History Admit Date and Time: 03/11/25 1119 Home Medications Medication Instructions Recorded Confirmed Type fish oil-dha-epa 1,200 mg-144 1 ea PO DAILY 08/06/14 03/11/25 History mg-216 mg capsule sitagliptin phosphate 100 mg 100 mg PO DAILY 12/20/18 03/11/25 History tablet (Januvia) aspirin 81 mg tablet,delayed 81 mg PO DAILY 02/09/21 03/11/25 History release calcium 600 mg (as 1 ea PO DAILY 02/09/21 03/11/25 History carbonate)-vitamin D3 5 mcg (200 unit) tablet cholecalciferol (vitamin D3) 25 50 mcg PO DAILY 02/09/21 03/11/25 History mcg (1,000 unit) tablet magnesium oxide 400 mg (241.3 mg 400 mg PO HS 02/09/21 03/11/25 History magnesium) tablet acetaminophen 500 mg capsule 1,000 mg PO Q6H PRN fever or pain 10/08/24 03/11/25 History metformin 500 mg tablet,extended 1,500 mg PO DAILY 10/08/24 03/11/25 History release 24 hr (Glucophage XR) carbidopa 25 mg-levodopa 100 mg 1 tab PO TID #270 tabs 01/05/25 03/11/25 Rx tablet (Sinemet) carvedilol 25 mg tablet (Coreg) 25 mg PO BID #180 tabs 01/05/25 03/11/25 Rx atorvastatin 80 mg tablet (Lipitor) 80 mg PO DAILY #90 tabs 02/28/25 03/11/25 Rx choline 2,400 mg PO DAILY 03/11/25 03/11/25 History coenzyme Q10 100 mg capsule (Co 300 mg PO DAILY 03/11/25 03/11/25 History Q-10) hydrochlorothiazide 25 mg tablet 25 mg PO DAILY 03/11/25 03/11/25 History losartan 25 mg tablet 25 mg PO DAILY 03/11/25 03/11/25 History multivitamin with minerals-folic 1 tab PO DAILY 03/11/25 03/11/25 History acid 200 mcg chewable tablet (Adult Multivitamin Gummies) Processed by: Pharmacy (Medication Reconciliation completed by Fur GraderGeneva) Medications reviewed in ED?: No Medication History completed: Yes Patient Interview: Completed Secondary Source(s): Written medication list, Spouse/Significant other, Other family member and Insurance records [facility] Statement: As the person ultimately responsible for medication therapy, providers are able to order a medication from an existing home medication list in [facility] via the "Reconcile Routine" prior to Confirmation of that medication by marketing support coordinator. Such practice is discouraged except when the physician, in their clinical judgment, deems that a medical need exists for a medication without regard to previous use.
--- NOTE | 2025-03-11 13:59 | PROVIDER PROGRESS NOTE ---
Subjective Prog Note Date Prog Note Date: 03/11/25 Subjective Subjective: She is sitting up in bed and eating her lunch. at bedside. She does not have hip pain. Seen later this afternoon as well. She is awake and alert with Granddaughter and grandson at bedside. Falls have been a problem at home, and it seems that she fell 2x in one day which precipitated this admission. She has pain from previous falls, which is making it hard for her to protect herself. She is hard of hearing, but has a small device with headphones and a microphone which is very helpful for communication with her. She is able to pull about 800cc on IS. She has some pain on the right chest wall with deep inspiration. She has been able to get up and work with PT. Current Medications Current Medications Current Medications: Current Medications Generic Name Dose Route Start Last Admin Trade Name Freq PRN Reason Stop Dose Admin Acetaminophen 1,000 mg 03/10/25 22:00 03/11/25 06:02 Acetaminophen 500 Mg Tablet PO 1,000 mg TID ELIZABETH Administration Acetaminophen 650 mg 03/10/25 18:15 03/10/25 18:52 Acetaminophen 325 Mg Tablet PO 650 mg Q4HR PRN Administration Pain 1 to 4, or Fever Aspirin 81 mg 03/11/25 09:00 03/11/25 08:45 Aspirin Ec 81 Mg Tablet PO 81 mg DAILY ELIZABETH Administration Atorvastatin Calcium 80 mg 03/11/25 09:00 03/11/25 08:45 Atorvastatin 40 Mg Tablet PO 80 mg DAILY ELIZABETH Administration Calcium Carbonate/Glycine 500 mg 03/11/25 09:00 03/11/25 08:45 Calcium Carb (Oyster Shell) 500 Mg Tablet PO 500 mg DAILY ELIZABETH Administration Carbidopa/Levodopa 1 tab 03/10/25 22:00 03/11/25 06:02 Carbidopa/Levodopa 25 Mg/100 Mg Tablet PO 1 tab TID ELIZABETH Administration Carvedilol 25 mg 03/10/25 21:00 03/11/25 08:45 Carvedilol 12.5 Mg Tablet PO 25 mg BID ELIZABETH Administration Cholecalciferol 25 mcg 03/11/25 09:00 03/11/25 08:44 Cholecalciferol 25 Mcg Tablet PO 25 mcg DAILY ELIZABETH Administration Hydrochlorothiazide 25 mg 03/11/25 09:00 03/11/25 08:45 Hydrochlorothiazide 25 Mg Tablet PO 25 mg DAILY ELIZABETH Administration Hydromorphone HCl 0.5 mg 03/10/25 18:15 03/11/25 04:25 Hydromorphone 0.5 Mg/0.5 Ml Syringe IVP 0.5 mg Q2H PRN Administration Pain 8 to 10 Insulin Human Lispro 1 - 5 unit 03/10/25 21:00 03/11/25 12:20 Insulin Lispro 300 Unit/3 Ml Pen SUBQ 1 unit 0800,1200,1700,2100 ELIZABETH Administration Protocol Losartan Potassium 25 mg 03/10/25 18:15 03/11/25 08:45 Losartan 50 Mg Tablet PO 25 mg DAILY ELIZABETH Administration Magnesium Oxide 400 mg 03/10/25 21:00 03/10/25 21:15 Magnesium Oxide 400 Mg Tablet PO 400 mg HS ELIZABETH Administration [id number] Ethyl Esters 1 gm 03/11/25 09:00 03/11/25 08:44 Langdon-3 Acid Ethyl Esters 1 Gm Capsule PO 1 gm DAILY ELIZABETH Administration Ondansetron HCl 4 mg 03/10/25 18:15 Ondansetron Odt 4 Mg Tablet TL Q6HR PRN Nausea / Vomiting Ondansetron HCl 4 mg 03/10/25 18:15 Ondansetron 4 Mg/2 Ml Vial IVP Q6HR PRN Nausea / Vomiting Sodium Chloride 10 ml 03/10/25 18:15 Sodium Chloride Flush 0.9% 10 Ml Syringe IVP PRN PRN NEEDED PER PROVIDER ORDERS Sodium Chloride 10 ml 03/11/25 01:00 03/11/25 08:46 Sodium Chloride Flush 0.9% 10 Ml Syringe IVP 10 ml 0100,0900,1700 ELIZABETH Administration Objective Vital Signs/Intake & Output Reviewed Vital Signs: Yes Vital Signs: Vital Signs x48h Temp Pulse Resp BP Pulse Ox 03/11/25 07:47 36.4 C L 67 16 134/61 H 95 Intake & Output: Intake & Output 03/08/25 03/09/25 03/10/25 03/11/25 23:59 23:59 23:59 23:59 Intake Total 790 / 790 500 / 500 Output Total 1000 / 1000 Balance 790 / 790 -500 / -500 Weight (kg) 62.5 kg Objective General Appearance: positive No acute distress and Alert Eyes Bilateral: positive Normal inspection ENT: positive ENT inspection nml Neck: positive Nml inspection Respiratory: positive Other (right postero lateral chest wall tenderness. ) Cardiovascular: positive Regular rate & rhythm Abdomen: positive Non-tender and No distention Skin: positive Color nml Extremities: positive No pedal edema Neurologic/Psychiatric: positive Oriented x3 Lab Results 03/11/25 05:20 03/11/25 05:20 Other Labs: Lab Results x24hrs 03/11/25 03/11/25 03/11/25 Range/Units 11:24 07:35 05:20 WBC 4.6 L (4.8-10.8) x10^3/uL RBC 3.60 L (4.20-5.40) 10^6/uL Hgb 10.8 L (12.0-16.0) g/dL Hct 32.6 L (37.0-47.0) % MCV 90.6 (81.0-99.0) fL MCH 30.0 (27.0-31.0) pg MCHC 33.1 (32.0-36.0) g/dL RDW 12.2 (12.0-15.0) % Plt Count 159 (130-450) 10^3/uL MPV 9.9 (7.9-10.8) fL Neut # (Auto) 2.3 (1.5-6.6) 10^3/uL Lymph # (Auto) 1.7 (1.5-3.5) 10^3/uL Tyler # (Auto) 0.4 (0.0-1.0) 10^3/uL Eos # (Auto) 0.2 (0.0-0.7) 10^3/uL Baso # (Auto) 0.0 (0.0-0.1) 10^3/uL Absolute Nucleated RBC 0.00 x10^3/uL Nucleated RBC % 0.0 /100WBC Sodium 133 L (135-145) mmol/L Potassium 4.0 (3.5-4.5) mmol/L Chloride 99 L (101-111) mmol/L Carbon Dioxide 28 (21-32) mmol/L Anion Gap 6.0 (6-13) BUN 33 H (6-20) mg/dL Creatinine 1.0 (0.6-1.3) mg/dL Estimated GFR (MDRD) 54 L (>89) Glucose 88 (74-104) mg/dL POC Whole Bld Glucose 163 100 (70-100) mg/dL Estimat Average Glucose 128 H (70-100) mg/dL Hemoglobin A1c % 6.1 H (4.27-6.07) % Calcium 8.9 (8.5-10.3) mg/dL Magnesium (1.7-2.3) mg/dL Total Bilirubin (0.2-1.0) mg/dL AST (10-42) IU/L ALT (10-60) IU/L Alkaline Phosphatase (42-121) IU/L Total Protein (6.4-8.9) g/dL Albumin (3.2-5.5) g/dL Globulin (2.1-4.2) g/dL Albumin/Globulin Ratio (1.0-2.2) Lipase (11-82) U/L 03/10/25 Range/Units 13:30 WBC (4.8-10.8) x10^3/uL RBC (4.20-5.40) 10^6/uL Hgb (12.0-16.0) g/dL Hct (37.0-47.0) % MCV (81.0-99.0) fL MCH (27.0-31.0) pg MCHC (32.0-36.0) g/dL RDW (12.0-15.0) % Plt Count (130-450) 10^3/uL MPV (7.9-10.8) fL Neut # (Auto) (1.5-6.6) 10^3/uL Lymph # (Auto) (1.5-3.5) 10^3/uL Tyler # (Auto) (0.0-1.0) 10^3/uL Eos # (Auto) (0.0-0.7) 10^3/uL Baso # (Auto) (0.0-0.1) 10^3/uL Absolute Nucleated RBC x10^3/uL Nucleated RBC % /100WBC Sodium 135 (135-145) mmol/L Potassium 4.3 (3.5-4.5) mmol/L Chloride 100 L (101-111) mmol/L Carbon Dioxide 29 (21-32) mmol/L Anion Gap 6.0 (6-13) BUN 28 H (6-20) mg/dL Creatinine 0.9 (0.6-1.3) mg/dL Estimated GFR (MDRD) 61 L (>89) Glucose 114 H (74-104) mg/dL POC Whole Bld Glucose (70-100) mg/dL Estimat Average Glucose (70-100) mg/dL Hemoglobin A1c % (4.27-6.07) % Calcium 9.3 (8.5-10.3) mg/dL Magnesium 1.8 (1.7-2.3) mg/dL Total Bilirubin 0.6 (0.2-1.0) mg/dL AST 17 (10-42) IU/L ALT < 3 L (10-60) IU/L Alkaline Phosphatase 85 (42-121) IU/L Total Protein 7.0 (6.4-8.9) g/dL Albumin 4.3 (3.2-5.5) g/dL Globulin 2.7 (2.1-4.2) g/dL Albumin/Globulin Ratio 1.6 (1.0-2.2) Lipase 63 (11-82) U/L Other Results/Comments Other Results/Comments: POLST on chart reviewed. no CPR. otherwise full treatment. ABX Reporting Has patient been on IV antibiotics over the past 48 hours?: No Assessment/Plan Problem List (1) Intractable pain: Impression: Admitted from the ED for severe pain in the left hip. She was unable to ambulate after 3 different doses of IV pain medication. Since being admitted she has had 1 dose of IV Dilaudid. She is doing very well otherwise on scheduled Tylenol 3 times daily. She has some pain in her right chest wall as well. And I have offered some topical Lidoderm for this. Additionally I will change her IV Dilaudid to p.o. oxycodone 2.5 mg every 4 hours as needed pain. She has been able to work with physical and Occupational Therapy today and the recommendation is for fpc placement for rehab. I have discussed this with family, granddaughter and grandson at bedside. The family is amenable to SNF placement if that is the only option. I explained to them with her frequent falls that is probably the best option. I have asked transition planning to get involved in this process. (2) Right rib fracture: Impression: new and old rib fractures. Acute fx is right 8th rib. she has some pain with palpation of her right posterolateral chest wall. IS pull about 800cc. I have offered her topical pain relief for this. Her oxygen saturation remains normal on room air. She is not coughing. Qualifiers: Encounter type: initial encounter Fracture type: closed Rib fracture type: single rib Qualified Code(s): S22.31XA - Fracture of one rib, right side, initial encounter for closed fracture (3) Left hip pain: Impression: There was some question about possible left intertrochanteric femur fracture, and she was admitted for intractable hip pain which caused her to be unable to ambulate. I have discussed this with DR Maki, ortho surgery today. He does not believe there is a fracture there, and recommends followup in ortho clinic in about one week for repeat left hip X ray. She did not have severe pain with ambulation with PT today. I think this plan is very reasonable. (4) Repeated falls: Impression: She has been falling very frequently at home. Her is also mobility impaired and unable to assist her. The pain from previous fractures seems to be precipitating more falls. PT and OT have recommended SNF. Have spoken with transition planning to assist with SNF placement. (5) Parkinson disease with dyskinesia: Impression: Home Sinemet has been restarted. Qualifiers: Fluctuating manifestations: unspecified whether manifestations fluctuate Qualified Code(s): G20.B1 - Parkinson's disease with dyskinesia, without mention of fluctuations (6) Diabetes mellitus with hyperglycemia: Impression: on metformin at home. Blood sugars 160's today. has needed minimal lispro. A1C 6.1%. Will continue with SSI low scale as needed to control blood sugars and plan to resume metformin and Januvia on dc to home or SNF. Qualifiers: Diabetes mellitus detention insulin use: without ad terminal makeup operator use Diabetes mellitus type: type 2 Qualified Code(s): E11.65 - Type 2 diabetes mellitus with hyperglycemia (7) Essential (primary) hypertension: Impression: She is on HCTZ 25mg and Losartan 25mg daily. These home meds have been restarted. Selected Entries 03/11/25 03:45 03/11/25 07:47 03/11/25 16:11 Blood Pressure [Left Brachial artery] 126/60 122/63 Blood Pressure [Right Brachial artery] 134/61 H I have spent 38 minutes in the care of this patient today. This includes time [id number], review and ordering of diagnostic imaging and laboratory studies and consultation with other providers. Monitoring the patient's signs symptoms, evaluation of medication effectiveness and patient's response to treatment.
--- NOTE | 2025-03-11 14:29 | PT Plan of Care ---
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 MEDICAL/SURGICAL HISTORY Medical History (Updated 03/10/25 @ 21:21 by Floyd Craig MD) Bradykinesia Chronic knee pain Acute head trauma Repeated falls Rosacea Hearing loss, bilateral CAD (coronary artery disease) Anemia Nocturnal leg cramps Surgical History Status post total left knee replacement 06/11/21 Dr Martin Hx of hysterectomy cervical dysplasia History of heart artery stent RCA stent 2000; IRIS stent 05/16/2004; taxus stent distal to 04/29 stent 10/2004 BALANCE/FUNCTIONAL RESULTS Sitting Balance: Fair Standing Balance: Fair ASSESSMENT Assessment: Pt is a 75yo F referred for PT eval d/t GLF resulting in facial laceration, 7th & 8th rib fx's, subacute L1 compression fx and L3 TP fx. Possible L greater troch fx, may need further imaging to r/o. PMH includes PD and dementia; please see chart for further hx. Per chart review and pt's family report, pt was ambulatory with a walker and required up to modA for amb and ADLs. Upon PT eval today, pt is somnolent and confused but willing to participate. Transfers to EOB with modAx2 and additional time to complete task. STS c FWW and mod to maxAx2. Reports increased BLE pain with standing and unable to take steps fwd. Limited to L lateral steps x3 with mod to maxAx2. Requires maxAx2 for transfer back to supine. Pt presenting with multiple mobility impairments including cognitive, neuromsk, and musculoskeletal. Pt will benefit from continued PT in acute setting to improve tolerance to upright and to progress mobility for improved functional indep. When medically clear, PT rec dc to SNF as pt is far below baseline. GOALS Improve supine to sit to:: Minimal Assist Improve sit to stand to:: Minimal Assist Improve pivot transfer ability to:: Minimal Assist Improve sit to supine to:: Minimal Assist Improve gait ability to:: Min A Advance Assistive Device to:: Front Wheeled Walker Increase distance walked to (in feet):: 20 PLAN Frequency: 1-2x/day Duration: Until goals are met DISCHARGE RECOMMENDATIONS Discharge Location: [facility] Equipment Recommended: Front wheeled walker Transport Needs at Discharge: B.L.S Other: BLS d/t confusion, poor upright tolerance
--- NOTE | 2025-03-11 14:54 | OT Plan of Care ---
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 Surgical History (Updated 10/09/24 @ 17:41 by ISELA Arteaga) Status post total left knee replacement 06/11/21 Dr Martin Hx of hysterectomy cervical dysplasia History of heart artery stent RCA stent 2000; IRIS stent 05/16/2004; taxus stent distal to 04/29 stent 10/2004 Medical History (Updated 03/10/25 @ 21:21 by Floyd Craig MD) Bradykinesia Chronic knee pain Acute head trauma Repeated falls Rosacea Hearing loss, bilateral CAD (coronary artery disease) Anemia Nocturnal leg cramps Assessment Assessment 75-year-old female PMH significant for CAD, Parkinson's dementia, diabetes presenting s/p multiple GLF at home. In ED had visible injuries to her left chin and pain in her pelvis and hip on the left and right-sided rib pain. Imaging revealed factures involving right eighth rib, compression deformity at L1, minimally displaced fracture of L3, likely nondisplaced fracture of L greater trochanter. Ortho consulted and films reviewed WBAT at this time. Awaiting ? outside ortho consultation however per team pt presumed WBAT. Met supine in bed, A&Ox3, lethargic but able to participate with stimulation and upright position. Performed supine to sit MOD A x2 EOB sitting MIN A MOD Ax2 sit to stand and attempted lateral steps to HOB using RW. Currently MAX A ADLs bed level OOB to chair Ax2 with nursing prn. Overall presents with decreased endurance, activity tolerance and ADL status. Will benefit from cont OT services during acute stay. Rec d/c to SNF at this time. Goals - Activities of Daily Living Improve Upper Extremity Standby Assist Dressing to: Improve Lower Extremity Standby Assist Dressing to: Improve Grooming/Hygiene to: Standby Assist Improve Bathing to: Standby Assist Improve Toileting to: Standby Assist Plan Treatment Frequency 1x/day Duration Until discharge -Discharge Recommendations Discharge Location Intermediate Facility Support/Services Needed With assist Transport Needs at Discharge B.Rob.S
[2025-03-11] MEDS: LIDOCAINE PATCH 4% TOP SCH (16:15)
[2025-03-11] MEDS: oxyCODONE 5 MG TABLET PO PRN (21:55)
[2025-03-12 05:54] LABS: BASOPHILS % (AUTO) 0.8 %; EOSINOPHILS # (AUTO) 0.2 10^3/uL (0.0-0.7); EOSINOPHILS % (AUTO) 3.8 %; HGB - HEMOGLOBIN 11.1 g/dL (12.0-16.0); LYMPHOCYTES # (AUTO) 1.6 10^3/uL (1.5-3.5); LYMPHOCYTES % (AUTO) 31.7 %; MEAN CORPUSCULAR HEMOGLOBIN 29.5 pg (27.0-31.0); MEAN CORPUSCULAR HGB CONC 32.6 g/dL (32.0-36.0); MEAN CORPUSCULAR VOLUME 90.4 fL (81.0-99.0); MEAN PLATELET VOLUME 9.5 fL (7.9-10.8); MONOCYTES # (AUTO) 0.5 10^3/uL (0.0-1.0); NEUTROPHILS # (AUTO) 2.7 10^3/uL (1.5-6.6); NEUTROPHILS % (AUTO) 53.3 %; PLT - PLATELET COUNT 156 10^3/uL (130-450); RED BLOOD COUNT 3.76 10^6/uL (4.20-5.40); RED CELL DISTRIBUTION WIDTH 12.1 % (12.0-15.0)
[2025-03-12 06:09] LABS: CALCIUM 8.9 mg/dL (8.5-10.3)
[2025-03-12] MEDS: polyethylene glycoL 3350 17 GM PACKET PO SCH (08:44)
[2025-03-12] MEDS ORDERED: hydroCHLOROthiazide 25 MG TABLET PO SCH (09:00)
[2025-03-12] MEDS ORDERED: LOSARTAN 50 MG TABLET PO SCH (09:00)
--- NOTE | 2025-03-12 14:59 | PROVIDER PROGRESS NOTE ---
Subjective Prog Note Date Prog Note Date: 03/12/25 Subjective Subjective: She is doing fine this afternoon. had a BM this afternoon. She is eating dinner this evening, family present at bedside. She is eating with her eyes closed, and they say that this is normal for her. She has been awake and alert through the day. Continues to have pain, but does not want to take pain meds. Her IS remains well below expected values. She is not expanding her lungs due to pain related to her rib fracture . Current Medications Current Medications Current Medications: Current Medications Generic Name Dose Route Start Last Admin Trade Name Freq PRN Reason Stop Dose Admin Acetaminophen 1,000 mg 03/10/25 22:00 03/12/25 14:16 Acetaminophen 500 Mg Tablet PO 1,000 mg TID ELIZABETH Administration Acetaminophen 650 mg 03/10/25 18:15 03/10/25 18:52 Acetaminophen 325 Mg Tablet PO 650 mg Q4HR PRN Administration Pain 1 to 4, or Fever Aspirin 81 mg 03/11/25 09:00 03/12/25 08:44 Aspirin Ec 81 Mg Tablet PO 81 mg DAILY ELIZABETH Administration Atorvastatin Calcium 80 mg 03/11/25 09:00 03/12/25 09:57 Atorvastatin 40 Mg Tablet PO Not Given DAILY ELIZABETH Calcium Carbonate/Glycine 500 mg 03/11/25 09:00 03/12/25 08:44 Calcium Carb (Oyster Shell) 500 Mg Tablet PO 500 mg DAILY ELIZABETH Administration Carbidopa/Levodopa 1 tab 03/10/25 22:00 03/12/25 14:16 Carbidopa/Levodopa 25 Mg/100 Mg Tablet PO 1 tab TID ELIZABETH Administration Carvedilol 25 mg 03/10/25 21:00 03/12/25 08:53 Carvedilol 12.5 Mg Tablet PO Not Given BID ELIZABETH Cholecalciferol 25 mcg 03/11/25 09:00 03/12/25 08:44 Cholecalciferol 25 Mcg Tablet PO 25 mcg DAILY ELIZABETH Administration Hydrochlorothiazide 25 mg 03/11/25 09:00 03/12/25 08:53 Hydrochlorothiazide 25 Mg Tablet PO Not Given DAILY ELIZABETH Hydromorphone HCl 0.5 mg 03/10/25 18:15 03/11/25 04:25 Hydromorphone 0.5 Mg/0.5 Ml Syringe IVP 0.5 mg Q2H PRN Administration Pain 8 to 10 Insulin Human Lispro 1 - 5 unit 03/10/25 21:00 03/12/25 13:10 Insulin Lispro 300 Unit/3 Ml Pen SUBQ Not Given 0800,1200,1700,2100 [facility] Protocol Lidocaine 1 patch 03/11/25 16:09 03/12/25 08:44 Lidocaine Patch 4% TOP 1 patch DAILY ELIZABETH Administration Losartan Potassium 25 mg 03/10/25 18:15 03/12/25 08:53 Losartan 50 Mg Tablet PO Not Given DAILY ELIZABETH Magnesium Oxide 400 mg 03/10/25 21:00 03/11/25 21:08 Magnesium Oxide 400 Mg Tablet PO 400 mg HS ELIZABETH Administration [id number] Ethyl Esters 1 gm 03/11/25 09:00 03/12/25 08:44 Justice-3 Acid Ethyl Esters 1 Gm Capsule PO 1 gm DAILY ELIZABETH Administration Ondansetron HCl 4 mg 03/10/25 18:15 Ondansetron Odt 4 Mg Tablet TL Q6HR PRN Nausea / Vomiting Ondansetron HCl 4 mg 03/10/25 18:15 Ondansetron 4 Mg/2 Ml Vial IVP Q6HR PRN Nausea / Vomiting Oxycodone HCl 2.5 mg 03/11/25 16:41 03/11/25 21:55 Oxycodone 5 Mg Tablet PO 2.5 mg Q4HR PRN Administration Moderate Pain (Level 4-6) Polyethylene Glycol 17 gm 03/12/25 09:00 03/12/25 08:44 Polyethylene Glycol 3350 17 Gm Packet PO 17 gm DAILY ELIZABETH Administration Sodium Chloride 10 ml 03/10/25 18:15 Sodium Chloride Flush 0.9% 10 Ml Syringe IVP PRN PRN NEEDED PER PROVIDER ORDERS Sodium Chloride 10 ml 03/11/25 01:00 03/12/25 08:44 Sodium Chloride Flush 0.9% 10 Ml Syringe IVP 10 ml 0100,0900,1700 ELIZABETH Administration Objective Vital Signs/Intake & Output Reviewed Vital Signs: Yes Vital Signs: Vital Signs x48h Temp Pulse Resp BP Pulse Ox 03/12/25 07:53 36.8 C 58 L 18 100/52 L 96 Intake & Output: Intake & Output 03/09/25 03/10/25 03/11/25 03/12/25 23:59 23:59 23:59 23:59 Intake Total 790 / 790 1280 / 1280 1030 / 1030 Output Total 3300 / 3300 1425 / 1425 Balance 790 / 790 -2020 / -2020 -395 / -395 Weight (kg) 62.5 kg Objective General Appearance: positive No acute distress and Alert Eyes Bilateral: positive Normal inspection ENT: positive ENT inspection nml Neck: positive Nml inspection Respiratory: positive Other (right postero lateral chest wall tenderness. ) Cardiovascular: positive Regular rate & rhythm Abdomen: positive Non-tender and No distention Skin: positive Color nml Extremities: positive No pedal edema Neurologic/Psychiatric: positive Oriented x3 Lab Results 03/12/25 05:10 03/12/25 05:10 Other Labs: Lab Results x24hrs 03/12/25 03/12/25 03/12/25 Range/Units 11:24 07:43 05:10 WBC 5.0 (4.8-10.8) x10^3/uL RBC 3.76 L (4.20-5.40) 10^6/uL Hgb 11.1 L (12.0-16.0) g/dL Hct 34.0 L (37.0-47.0) % MCV 90.4 (81.0-99.0) fL MCH 29.5 (27.0-31.0) pg MCHC 32.6 (32.0-36.0) g/dL RDW 12.1 (12.0-15.0) % Plt Count 156 (130-450) 10^3/uL MPV 9.5 (7.9-10.8) fL Neut # (Auto) 2.7 (1.5-6.6) 10^3/uL Lymph # (Auto) 1.6 (1.5-3.5) 10^3/uL Amador # (Auto) 0.5 (0.0-1.0) 10^3/uL Eos # (Auto) 0.2 (0.0-0.7) 10^3/uL Baso # (Auto) 0.0 (0.0-0.1) 10^3/uL Absolute Nucleated RBC 0.00 x10^3/uL Nucleated RBC % 0.0 /100WBC Sodium 137 (135-145) mmol/L Potassium 4.0 (3.5-4.5) mmol/L Chloride 102 (101-111) mmol/L Carbon Dioxide 28 (21-32) mmol/L Anion Gap 7.0 (6-13) BUN 38 H (6-20) mg/dL Creatinine 1.0 (0.6-1.3) mg/dL Estimated GFR (MDRD) 54 L (>89) Glucose 106 H (74-104) mg/dL POC Whole Bld Glucose 124 99 (70-100) mg/dL Calcium 8.9 (8.5-10.3) mg/dL 03/11/25 03/11/25 03/10/25 Range/Units 20:45 16:39 21:01 WBC (4.8-10.8) x10^3/uL RBC (4.20-5.40) 10^6/uL Hgb (12.0-16.0) g/dL Hct (37.0-47.0) % MCV (81.0-99.0) fL MCH (27.0-31.0) pg MCHC (32.0-36.0) g/dL RDW (12.0-15.0) % Plt Count (130-450) 10^3/uL MPV (7.9-10.8) fL Neut # (Auto) (1.5-6.6) 10^3/uL Lymph # (Auto) (1.5-3.5) 10^3/uL Amador # (Auto) (0.0-1.0) 10^3/uL Eos # (Auto) (0.0-0.7) 10^3/uL Baso # (Auto) (0.0-0.1) 10^3/uL Absolute Nucleated RBC x10^3/uL Nucleated RBC % /100WBC Sodium (135-145) mmol/L Potassium (3.5-4.5) mmol/L Chloride (101-111) mmol/L Carbon Dioxide (21-32) mmol/L Anion Gap (6-13) BUN (6-20) mg/dL Creatinine (0.6-1.3) mg/dL Estimated GFR (MDRD) (>89) Glucose (74-104) mg/dL POC Whole Bld Glucose 192 162 112 (70-100) mg/dL Calcium (8.5-10.3) mg/dL Other Results/Comments Other Results/Comments: POLST on chart reviewed. no CPR. otherwise full treatment. ABX Reporting Has patient been on IV antibiotics over the past 48 hours?: No Assessment/Plan Problem List (1) Intractable pain: Impression: Admitted from the ED for severe pain in the left hip. She was unable to ambulate after 3 different doses of IV pain medication. Since being admitted she has had 1 dose of IV Dilaudid. She is doing very well otherwise on scheduled Tylenol 3 times daily. She has some pain in her right chest wall as well. And I have offered some topical Lidoderm for this. I added oxycodone 2.5mg per dose yesterday, and she has not used any of this. However, her IS pull is poor. it is between 750-850 consistently. This well less than the 1L recommended as admission criteria for rib fractures. nursing has been working with her to increase this value and encourage her to expand her lung volume to prevent pneumonia. She is getting oxycodone this evening for pain. She has been able to work with physical and Occupational Therapy today and the recommendation is for [facility] placement for rehab. I have discussed this with family, granddaughter and grandson at bedside. The family is amenable to SNF placement if that is the only option. I explained to them with her frequent falls that is probably the best option. I have asked transition planning to get involved in this process. (2) Right rib fracture: Impression: new and old rib fractures. Acute fx is right 8th rib. she has some pain with palpation of her right posterolateral chest wall. IS pull about 800cc. I have offered her topical pain relief for this. Her oxygen saturation remains normal on room air. She is not coughing. see above discussion of her pain. Qualifiers: Encounter type: initial encounter Fracture type: closed Rib fracture type: single rib Qualified Code(s): S22.31XA - Fracture of one rib, right side, initial encounter for closed fracture (3) Left hip pain: Impression: There was some question about possible left intertrochanteric femur fracture, and she was admitted for intractable hip pain which caused her to be unable to ambulate. I have discussed this with DR Maki, ortho surgery today. He does not believe there is a fracture there, and recommends followup in ortho clinic in about one week for repeat left hip X ray. She did not have severe pain with ambulation with PT today. I think this plan is very reasonable. (4) Repeated falls: Impression: She has been falling very frequently at home. Her is also mobility impaired and unable to assist her. The pain from previous fractures seems to be precipitating more falls. PT and OT have recommended SNF. Have spoken with transition planning to assist with SNF placement. (5) Parkinson disease with dyskinesia: Impression: Home Sinemet has been restarted. Qualifiers: Fluctuating manifestations: unspecified whether manifestations fluctuate Qualified Code(s): G20.B1 - Parkinson's disease with dyskinesia, without mention of fluctuations (6) Diabetes mellitus with hyperglycemia: Impression: on metformin at home. Blood sugars 160's today. has needed minimal lispro. A1C 6.1%. Will continue with SSI low scale as needed to control blood sugars and plan to resume metformin and Januvia on dc to home or SNF. Qualifiers: Diabetes mellitus longterm insulin use: without longterm use Diabetes mellitus type: type 2 Qualified Code(s): E11.65 - Type 2 diabetes mellitus with hyperglycemia (7) Essential (primary) hypertension: Impression: She is on HCTZ 25mg and Losartan 25mg daily. These home meds have been restarted. Blood pressures were low, I have therefore held these meds. (8) Acute urinary retention: Impression: yesterday evening, had a bladder scan >500cc, she had been urinating small amounts all day. I will send UA to insure no infection. (trace LE, otherwise neg. culture is sent and pending, will follow) Her WBC is wNL. She is having some blood pressures that are low (SBP low 100's) will check orthostatic VS. I do not think this is sepsis, as she is otherwise appearing well. I have spent 36 minutes in the care of this patient today. This includes time [id number], review and ordering of diagnostic imaging and laboratory studies. Monitoring the patient's signs symptoms, evaluation of medication effectiveness and patient's response to treatment.
[2025-03-12 16:10] LABS: BILIRUBIN,URINE NEGATIVE (NEGATIVE); GLUCOSE, URINE (UA) NEGATIVE (NEGATIVE); KETONES,URINE (UA) NEGATIVE (NEGATIVE); LEUKOCYTE ESTERASE, URINE TRACE (NEGATIVE); NITRITE,URINE NEGATIVE (NEGATIVE); OCCULT BLOOD,URINE TRACE-INTA (NEGATIVE); PROTEIN,URINE NEGATIVE (NEGATIVE); UROBILINOGEN,URINE 0.2 (NORMAL) E.U./dL (NORMAL)
[2025-03-12 16:27] LABS: BACTERIA,URINE None Seen /HPF (None Seen); CLARITY,URINE CLEAR (CLEAR); RBC,URINE 0-5 /HPF (0-5); SQUAMOUS EPITHELIAL CELL,UR NONE SEEN (<= Few); WBC,URINE 0-3 /HPF (0-5)
[2025-03-13 05:58] LABS: BASOPHILS % (AUTO) 0.7 %; EOSINOPHILS # (AUTO) 0.2 10^3/uL (0.0-0.7); EOSINOPHILS % (AUTO) 4.4 %; HCT - HEMATOCRIT 33.2 % (37.0-47.0); HGB - HEMOGLOBIN 11.2 g/dL (12.0-16.0); LYMPHOCYTES # (AUTO) 1.4 10^3/uL (1.5-3.5); LYMPHOCYTES % (AUTO) 33.2 %; MEAN CORPUSCULAR HEMOGLOBIN 30.4 pg (27.0-31.0); MEAN CORPUSCULAR HGB CONC 33.7 g/dL (32.0-36.0); MEAN CORPUSCULAR VOLUME 90.2 fL (81.0-99.0); MEAN PLATELET VOLUME 9.5 fL (7.9-10.8); MONOCYTES # (AUTO) 0.4 10^3/uL (0.0-1.0); MONOCYTES % (AUTO) 9.3 %; NEUTROPHILS # (AUTO) 2.2 10^3/uL (1.5-6.6); NEUTROPHILS % (AUTO) 51.9 %; PLT - PLATELET COUNT 152 10^3/uL (130-450); RED BLOOD COUNT 3.68 10^6/uL (4.20-5.40); RED CELL DISTRIBUTION WIDTH 12.3 % (12.0-15.0); WHITE BLOOD COUNT 4.3 x10^3/uL (4.8-10.8)
[2025-03-13 06:07] LABS: CREATININE 0.9 mg/dL (0.6-1.3)
--- NOTE | 2025-03-13 19:13 | PROVIDER PROGRESS NOTE ---
Subjective Prog Note Date Prog Note Date: 03/13/25 Subjective Subjective: seen today transferring. she is requiring 2 staff members and a walker to transfer bed to chair. Family at bedside. She needs to be much stronger. Current Medications Current Medications Current Medications: Current Medications Generic Name Dose Route Start Last Admin Trade Name Viral PRN Reason Stop Dose Admin Acetaminophen 1,000 mg 03/10/25 22:00 03/13/25 14:10 Acetaminophen 500 Mg Tablet PO 1,000 mg TID ELIZABETH Administration Aspirin 81 mg 03/11/25 09:00 03/13/25 09:15 Aspirin Ec 81 Mg Tablet PO 81 mg DAILY ELIZABETH Administration Atorvastatin Calcium 80 mg 03/11/25 09:00 03/13/25 09:15 Atorvastatin 40 Mg Tablet PO 80 mg DAILY ELIZABETH Administration Calcium Carbonate/Glycine 500 mg 03/11/25 09:00 03/13/25 09:15 Calcium Carb (Oyster Shell) 500 Mg Tablet PO 500 mg DAILY ELIZABETH Administration Carbidopa/Levodopa 1 tab 03/10/25 22:00 03/13/25 14:11 Carbidopa/Levodopa 25 Mg/100 Mg Tablet PO 1 tab TID ELIZABETH Administration Carvedilol 25 mg 03/10/25 21:00 03/13/25 09:15 Carvedilol 12.5 Mg Tablet PO 25 mg BID ELIZABETH Administration Cholecalciferol 25 mcg 03/11/25 09:00 03/13/25 09:15 Cholecalciferol 25 Mcg Tablet PO 25 mcg DAILY ELIZABETH Administration Hydromorphone HCl 0.5 mg 03/10/25 18:15 03/11/25 04:25 Hydromorphone 0.5 Mg/0.5 Ml Syringe IVP 0.5 mg Q2H PRN Administration Pain 8 to 10 Insulin Human Lispro 1 - 5 unit 03/10/25 21:00 03/13/25 18:00 Insulin Lispro 300 Unit/3 Ml Pen SUBQ 1 unit 0800,1200,1700,2100 ELIZABETH Administration Protocol Lidocaine 1 patch 03/11/25 16:09 03/13/25 09:15 Lidocaine Patch 4% TOP 1 patch DAILY ELIZABETH Administration Magnesium Oxide 400 mg 03/10/25 21:00 03/12/25 21:39 Magnesium Oxide 400 Mg Tablet PO 400 mg HS ELIZABETH Administration [id number] Ethyl Esters 1 gm 03/11/25 09:00 03/13/25 09:15 Naturita-3 Acid Ethyl Esters 1 Gm Capsule PO 1 gm DAILY ELIZABETH Administration Ondansetron HCl 4 mg 03/10/25 18:15 Ondansetron Odt 4 Mg Tablet TL Q6HR PRN Nausea / Vomiting Ondansetron HCl 4 mg 03/10/25 18:15 Ondansetron 4 Mg/2 Ml Vial IVP Q6HR PRN Nausea / Vomiting Oxycodone HCl 2.5 mg 03/11/25 16:41 03/13/25 16:29 Oxycodone 5 Mg Tablet PO 2.5 mg Q4HR PRN Administration Moderate Pain (Level 4-6) Polyethylene Glycol 17 gm 03/12/25 09:00 03/13/25 09:15 Polyethylene Glycol 3350 17 Gm Packet PO 17 gm DAILY ELIZABETH Administration Sodium Chloride 10 ml 03/10/25 18:15 Sodium Chloride Flush 0.9% 10 Ml Syringe IVP PRN PRN NEEDED PER PROVIDER ORDERS Sodium Chloride 10 ml 03/11/25 01:00 03/13/25 17:57 Sodium Chloride Flush 0.9% 10 Ml Syringe IVP 10 ml 0100,0900,1700 ELIZABETH Administration Objective Vital Signs/Intake & Output Reviewed Vital Signs: Yes Vital Signs: Vital Signs x48h Temp Pulse Resp BP Pulse Ox 03/13/25 16:20 36.7 C 67 18 153/71 H 98 Intake & Output: Intake & Output 03/10/25 03/11/25 03/12/25 03/13/25 23:59 23:59 23:59 23:59 Intake Total 790 / 790 1280 / 1280 1150 / 1150 700 / 700 Output Total 3300 / 3300 2525 / 2525 1450 / 1450 Balance 790 / 790 -2020 / -2020 -1375 / -1375 -750 / -750 Weight (kg) 62.5 kg Objective General Appearance: positive No acute distress and Alert Eyes Bilateral: positive Normal inspection ENT: positive ENT inspection nml Neck: positive Nml inspection Respiratory: positive Other (right postero lateral chest wall tenderness. ) Cardiovascular: positive Regular rate & rhythm Abdomen: positive Non-tender and No distention Skin: positive Color nml Extremities: positive No pedal edema Neurologic/Psychiatric: positive Oriented x3 Lab Results 03/13/25 05:39 03/13/25 05:39 Other Labs: Lab Results x24hrs 03/13/25 03/13/25 03/13/25 Range/Units 16:42 11:47 07:45 WBC (4.8-10.8) x10^3/uL RBC (4.20-5.40) 10^6/uL Hgb (12.0-16.0) g/dL Hct (37.0-47.0) % MCV (81.0-99.0) fL MCH (27.0-31.0) pg MCHC (32.0-36.0) g/dL RDW (12.0-15.0) % Plt Count (130-450) 10^3/uL MPV (7.9-10.8) fL Neut # (Auto) (1.5-6.6) 10^3/uL Lymph # (Auto) (1.5-3.5) 10^3/uL Morgan # (Auto) (0.0-1.0) 10^3/uL Eos # (Auto) (0.0-0.7) 10^3/uL Baso # (Auto) (0.0-0.1) 10^3/uL Absolute Nucleated RBC x10^3/uL Nucleated RBC % /100WBC Sodium (135-145) mmol/L Potassium (3.5-4.5) mmol/L Chloride (101-111) mmol/L Carbon Dioxide (21-32) mmol/L Anion Gap (6-13) BUN (6-20) mg/dL Creatinine (0.6-1.3) mg/dL Estimated GFR (MDRD) (>89) Glucose (74-104) mg/dL POC Whole Bld Glucose 151 155 99 (70-100) mg/dL Calcium (8.5-10.3) mg/dL 03/13/25 03/12/25 Range/Units 05:39 20:55 WBC 4.3 L (4.8-10.8) x10^3/uL RBC 3.68 L (4.20-5.40) 10^6/uL Hgb 11.2 L (12.0-16.0) g/dL Hct 33.2 L (37.0-47.0) % MCV 90.2 (81.0-99.0) fL MCH 30.4 (27.0-31.0) pg MCHC 33.7 (32.0-36.0) g/dL RDW 12.3 (12.0-15.0) % Plt Count 152 (130-450) 10^3/uL MPV 9.5 (7.9-10.8) fL Neut # (Auto) 2.2 (1.5-6.6) 10^3/uL Lymph # (Auto) 1.4 L (1.5-3.5) 10^3/uL Morgan # (Auto) 0.4 (0.0-1.0) 10^3/uL Eos # (Auto) 0.2 (0.0-0.7) 10^3/uL Baso # (Auto) 0.0 (0.0-0.1) 10^3/uL Absolute Nucleated RBC 0.00 x10^3/uL Nucleated RBC % 0.0 /100WBC Sodium 137 (135-145) mmol/L Potassium 4.0 (3.5-4.5) mmol/L Chloride 101 (101-111) mmol/L Carbon Dioxide 29 (21-32) mmol/L Anion Gap 7.0 (6-13) BUN 30 H (6-20) mg/dL Creatinine 0.9 (0.6-1.3) mg/dL Estimated GFR (MDRD) 61 L (>89) Glucose 118 H (74-104) mg/dL POC Whole Bld Glucose 145 (70-100) mg/dL Calcium 9.0 (8.5-10.3) mg/dL Other Results/Comments Other Results/Comments: POLST on chart reviewed. no CPR. otherwise full treatment. Assessment/Plan Problem List (1) Intractable pain: Impression: Admitted from the ED for severe pain in the left hip. She was unable to ambulate after 3 different doses of IV pain medication. Since being admitted she has had 1 dose of IV Dilaudid. She is doing very well otherwise on scheduled Tylenol 3 times daily. She has some pain in her right chest wall as well. And I have offered some topical Lidoderm for this. I added oxycodone 2.5mg per dose. She is using the oxycodone intermittently and seems to be improving somewhat. RN has been able to health care coach her to acheive 1 L on IS. PT and OT recommend SNF. Family and patient amenable. Through the [facility], she can go to SNF with a waiver of the 3 [place] rule, and social work is helping patient and family with this. (2) Right rib fracture: Impression: new and old rib fractures. Acute fx is right 8th rib. she has some pain with palpation of her right posterolateral chest wall. IS pull increasing to 1L I have offered her topical pain relief for this. Her oxygen saturation remains normal on room air. She is not coughing. see above discussion of her pain. Qualifiers: Encounter type: initial encounter Fracture type: closed Rib fracture type: single rib Qualified Code(s): S22.31XA - Fracture of one rib, right side, initial encounter for closed fracture (3) Left hip pain: Impression: There was some question about possible left intertrochanteric femur fracture, and she was admitted for intractable hip pain which caused her to be unable to ambulate. I have discussed this with DR Maki, ortho surgery. He does not believe there is a fracture there, and recommends followup in ortho clinic in about one week for repeat left hip X ray. She did not have severe pain with ambulation. I think this plan is very reasonable. (4) Repeated falls: Impression: She has been falling very frequently at home. Her is also mobility impaired and unable to assist her. The pain from previous fractures seems to be precipitating more falls. PT and OT have recommended SNF. Have spoken with transition planning to assist with SNF placement. (5) Parkinson disease with dyskinesia: Impression: Home Sinemet has been restarted. Qualifiers: Fluctuating manifestations: unspecified whether manifestations fluctuate Qualified Code(s): G20.B1 - Parkinson's disease with dyskinesia, without mention of fluctuations (6) Diabetes mellitus with hyperglycemia: Impression: on metformin at home. Blood sugars 150's today. has needed minimal lispro. A1C 6.1%. Will continue with SSI low scale as needed to control blood sugars and plan to resume metformin and Januvia on dc to home or SNF. Qualifiers: Diabetes mellitus medical terminologist insulin use: without medical terminologist use Diabetes mellitus type: type 2 Qualified Code(s): E11.65 - Type 2 diabetes mellitus with hyperglycemia (7) Essential (primary) hypertension: Impression: She is on HCTZ 25mg and Losartan 25mg daily. These home meds have been restarted. Blood pressures were low, I have therefore held these meds. (8) Acute urinary retention: Impression: recommend void trial either in several day or at SNF. I have spent 30 minutes in the care of this patient today. This includes time [id number], review and ordering of diagnostic imaging and laboratory studies. Monitoring the patient's signs symptoms, evaluation of medication effectiveness and patient's response to treatment.
[2025-03-14 05:57] LABS: BASOPHILS % (AUTO) 0.7 %; EOSINOPHILS # (AUTO) 0.2 10^3/uL (0.0-0.7); EOSINOPHILS % (AUTO) 5.5 %; HCT - HEMATOCRIT 35.2 % (37.0-47.0); HGB - HEMOGLOBIN 11.3 g/dL (12.0-16.0); LYMPHOCYTES # (AUTO) 1.7 10^3/uL (1.5-3.5); LYMPHOCYTES % (AUTO) 40.2 %; MEAN CORPUSCULAR HEMOGLOBIN 29.6 pg (27.0-31.0); MEAN CORPUSCULAR HGB CONC 32.1 g/dL (32.0-36.0); MEAN CORPUSCULAR VOLUME 92.1 fL (81.0-99.0); MEAN PLATELET VOLUME 9.6 fL (7.9-10.8); MONOCYTES # (AUTO) 0.4 10^3/uL (0.0-1.0); NEUTROPHILS # (AUTO) 1.9 10^3/uL (1.5-6.6); NEUTROPHILS % (AUTO) 44.4 %; PLT - PLATELET COUNT 157 10^3/uL (130-450); RED BLOOD COUNT 3.82 10^6/uL (4.20-5.40); RED CELL DISTRIBUTION WIDTH 12.1 % (12.0-15.0); WHITE BLOOD COUNT 4.3 x10^3/uL (4.8-10.8)
[2025-03-14 06:11] LABS: CALCIUM 8.9 mg/dL (8.5-10.3); CREATININE 0.9 mg/dL (0.6-1.3)
--- NOTE | 2025-03-14 16:13 | PROVIDER PROGRESS NOTE ---
Subjective Prog Note Date Prog Note Date: 03/14/25 Subjective Subjective: She is having a good day. She says it is so nice here and everyone takes good care of her. Current Medications Current Medications Current Medications: Current Medications Generic Name Dose Route Start Last Admin Trade Name Viral PRN Reason Stop Dose Admin Acetaminophen 1,000 mg 03/10/25 22:00 03/14/25 13:23 Acetaminophen 500 Mg Tablet PO 1,000 mg TID ELIZABETH Administration Aspirin 81 mg 03/11/25 09:00 03/14/25 08:27 Aspirin Ec 81 Mg Tablet PO 81 mg DAILY ELIZABETH Administration Atorvastatin Calcium 80 mg 03/11/25 09:00 03/14/25 08:27 Atorvastatin 40 Mg Tablet PO 80 mg DAILY ELIZABETH Administration Calcium Carbonate/Glycine 500 mg 03/11/25 09:00 03/14/25 08:27 Calcium Carb (Oyster Shell) 500 Mg Tablet PO 500 mg DAILY ELIZABETH Administration Carbidopa/Levodopa 1 tab 03/10/25 22:00 03/14/25 13:24 Carbidopa/Levodopa 25 Mg/100 Mg Tablet PO 1 tab TID ELIZABETH Administration Carvedilol 25 mg 03/10/25 21:00 03/14/25 08:28 Carvedilol 12.5 Mg Tablet PO 25 mg BID ELIZABETH Administration Cholecalciferol 25 mcg 03/11/25 09:00 03/14/25 08:27 Cholecalciferol 25 Mcg Tablet PO 25 mcg DAILY ELIZABETH Administration Hydromorphone HCl 0.5 mg 03/10/25 18:15 03/11/25 04:25 Hydromorphone 0.5 Mg/0.5 Ml Syringe IVP 0.5 mg Q2H PRN Administration Pain 8 to 10 Insulin Human Lispro 1 - 5 unit 03/10/25 21:00 03/14/25 11:40 Insulin Lispro 300 Unit/3 Ml Pen SUBQ Not Given 0800,1200,1700,2100 [facility]END[facility] TO [facility] Protocol Lidocaine 1 patch 03/11/25 16:09 03/14/25 08:26 Lidocaine Patch 4% TOP 1 patch DAILY ELIZABETH Administration Magnesium Oxide 400 mg 03/10/25 21:00 03/13/25 21:45 Magnesium Oxide 400 Mg Tablet PO 400 mg HS ELIZABETH Administration [id number] Ethyl Esters 1 gm 03/11/25 09:00 03/14/25 08:27 [place]-3 Acid Ethyl Esters 1 Gm Capsule PO 1 gm DAILY ELIZABETH Administration Ondansetron HCl 4 mg 03/10/25 18:15 Ondansetron Odt 4 Mg Tablet TL Q6HR PRN Nausea / Vomiting Ondansetron HCl 4 mg 03/10/25 18:15 Ondansetron 4 Mg/2 Ml Vial IVP Q6HR PRN Nausea / Vomiting Oxycodone HCl 2.5 mg 03/11/25 16:41 03/13/25 16:29 Oxycodone 5 Mg Tablet PO 2.5 mg Q4HR PRN Administration Moderate Pain (Level 4-6) Polyethylene Glycol 17 gm 03/12/25 09:00 03/14/25 08:26 Polyethylene Glycol 3350 17 Gm Packet PO 17 gm DAILY ELIZABETH Administration Sodium Chloride 10 ml 03/10/25 18:15 Sodium Chloride Flush 0.9% 10 Ml Syringe IVP PRN PRN NEEDED PER PROVIDER ORDERS Sodium Chloride 10 ml 03/11/25 01:00 03/14/25 08:26 Sodium Chloride Flush 0.9% 10 Ml Syringe IVP 10 ml 0100,0900,1700 ELIZABETH Administration Objective Vital Signs/Intake & Output Reviewed Vital Signs: Yes Vital Signs: Vital Signs x48h Temp Pulse Resp BP Pulse Ox 03/14/25 15:40 36.5 C 62 15 135/65 H 98 03/14/25 08:44 36.5 C 55 L 16 146/70 H 96 Intake & Output: Intake & Output 03/11/25 03/12/25 03/13/25 03/14/25 23:59 23:59 23:59 23:59 Intake Total 1280 / 1280 1150 / 1150 700 / 700 690 / 690 Output Total 3300 / 3300 2525 / 2525 2250 / 2250 1550 / 1550 Balance -2020 / -2020 -1375 / -1375 -1550 / -1550 -860 / -860 Objective General Appearance: positive No acute distress and Alert Eyes Bilateral: positive Normal inspection ENT: positive ENT inspection nml Neck: positive Nml inspection Respiratory: positive Other (right postero lateral chest wall tenderness. ) Cardiovascular: positive Regular rate & rhythm Abdomen: positive Non-tender and No distention Skin: positive Color nml Extremities: positive No pedal edema Neurologic/Psychiatric: positive Oriented x3 Lab Results 03/14/25 05:15 03/14/25 05:15 Other Labs: Lab Results x24hrs 03/14/25 03/14/25 03/14/25 Range/Units 11:37 07:33 05:15 WBC 4.3 L (4.8-10.8) x10^3/uL RBC 3.82 L (4.20-5.40) 10^6/uL Hgb 11.3 L (12.0-16.0) g/dL Hct 35.2 L (37.0-47.0) % MCV 92.1 (81.0-99.0) fL MCH 29.6 (27.0-31.0) pg MCHC 32.1 (32.0-36.0) g/dL RDW 12.1 (12.0-15.0) % Plt Count 157 (130-450) 10^3/uL MPV 9.6 (7.9-10.8) fL Neut # (Auto) 1.9 (1.5-6.6) 10^3/uL Lymph # (Auto) 1.7 (1.5-3.5) 10^3/uL [place] # (Auto) 0.4 (0.0-1.0) 10^3/uL Eos # (Auto) 0.2 (0.0-0.7) 10^3/uL Baso # (Auto) 0.0 (0.0-0.1) 10^3/uL Absolute Nucleated RBC 0.00 x10^3/uL Nucleated RBC % 0.0 /100WBC Sodium 134 L (135-145) mmol/L Potassium 4.0 (3.5-4.5) mmol/L Chloride 100 L (101-111) mmol/L Carbon Dioxide 28 (21-32) mmol/L Anion Gap 6.0 (6-13) BUN 27 H (6-20) mg/dL Creatinine 0.9 (0.6-1.3) mg/dL Estimated GFR (MDRD) 61 L (>89) Glucose 114 H (74-104) mg/dL POC Whole Bld Glucose 124 122 (70-100) mg/dL Calcium 8.9 (8.5-10.3) mg/dL 03/13/25 03/13/25 Range/Units 20:46 16:42 WBC (4.8-10.8) x10^3/uL RBC (4.20-5.40) 10^6/uL Hgb (12.0-16.0) g/dL Hct (37.0-47.0) % MCV (81.0-99.0) fL MCH (27.0-31.0) pg MCHC (32.0-36.0) g/dL RDW (12.0-15.0) % Plt Count (130-450) 10^3/uL MPV (7.9-10.8) fL Neut # (Auto) (1.5-6.6) 10^3/uL Lymph # (Auto) (1.5-3.5) 10^3/uL [place] # (Auto) (0.0-1.0) 10^3/uL Eos # (Auto) (0.0-0.7) 10^3/uL Baso # (Auto) (0.0-0.1) 10^3/uL Absolute Nucleated RBC x10^3/uL Nucleated RBC % /100WBC Sodium (135-145) mmol/L Potassium (3.5-4.5) mmol/L Chloride (101-111) mmol/L Carbon Dioxide (21-32) mmol/L Anion Gap (6-13) BUN (6-20) mg/dL Creatinine (0.6-1.3) mg/dL Estimated GFR (MDRD) (>89) Glucose (74-104) mg/dL POC Whole Bld Glucose 141 151 (70-100) mg/dL Calcium (8.5-10.3) mg/dL Other Results/Comments Other Results/Comments: POLST on chart reviewed. no CPR. otherwise full treatment. Assessment/Plan Problem List (1) Intractable pain: Impression: Admitted from the ED for severe pain in the left hip. She was unable to ambulate after 3 different doses of IV pain medication. Since being admitted she has had 1 dose of IV Dilaudid. She is doing very well otherwise on scheduled Tylenol 3 times daily. She has some pain in her right chest wall as well. And I have offered some topical Lidoderm for this. I added oxycodone 2.5mg per dose. She is using the oxycodone intermittently and seems to be improving somewhat. RN has been able to dramatic coach her to acheive 1 L on IS. PT and OT recommend SNF. Family and patient amenable. Through the [facility]CO, she can go to SNF with a waiver of the 3 [place] rule, and social work is helping patient and family with this. She has been accepted at [place] [facility], awaiting auth through [facility] (2) Right rib fracture: Impression: new and old rib fractures. Acute fx is right 8th rib. she has some pain with palpation of her right posterolateral chest wall. IS pull increasing to 1L I have offered her topical pain relief for this. Her oxygen saturation remains normal on room air. She is not coughing. see above discussion of her pain. Qualifiers: Encounter type: initial encounter Fracture type: closed Rib fracture type: single rib Qualified Code(s): S22.31XA - Fracture of one rib, right side, initial encounter for closed fracture (3) Left hip pain: Impression: There was some question about possible left intertrochanteric femur fracture, and she was admitted for intractable hip pain which caused her to be unable to ambulate. I have discussed this with DR Maki, ortho surgery. He does not believe there is a fracture there, and recommends followup in ortho clinic in about one week for repeat left hip X ray. She did not have severe pain with ambulation. I think this plan is very reasonable. (4) Repeated falls: Impression: She has been falling very frequently at home. Her is also mobility impaired and unable to assist her. The pain from previous fractures seems to be precipitating more falls. PT and OT have recommended SNF. Have spoken with transition planning to assist with SNF placement. (5) Parkinson disease with dyskinesia: Impression: Home Sinemet has been restarted. Qualifiers: Fluctuating manifestations: unspecified whether manifestations fluctuate Qualified Code(s): G20.B1 - Parkinson's disease with dyskinesia, without mention of fluctuations (6) Diabetes mellitus with hyperglycemia: Impression: on metformin at home. Blood sugars 150's today. has needed minimal lispro. A1C 6.1%. Will continue with SSI low scale as needed to control blood sugars and plan to resume metformin and Januvia on dc to home or SNF. Qualifiers: Diabetes mellitus type: type 2 Diabetes mellitus terminal makeup operator insulin use: without jail use Qualified Code(s): E11.65 - Type 2 diabetes mellitus with hyperglycemia (7) Essential (primary) hypertension: Impression: She is on HCTZ 25mg and Losartan 25mg daily. These home meds have been restarted. Blood pressures were low, I have therefore held these meds. (8) Acute urinary retention: Impression: recommend void trial either in several days or at SNF. Lloyd placed 03/11. I have spent 30 minutes in the care of this patient today. This includes time [id number], review and ordering of diagnostic imaging and laboratory studies. Monitoring the patient's signs symptoms, evaluation of medication effectiveness and patient's response to treatment.
[2025-03-14] MEDS: SODIUM CHLORIDE FLUSH 0.9% 10 ML SYRINGE IVP PRN (23:47)
[2025-03-15 05:43] LABS: BASOPHILS % (AUTO) 0.8 %; EOSINOPHILS # (AUTO) 0.2 10^3/uL (0.0-0.7); EOSINOPHILS % (AUTO) 4.7 %; HCT - HEMATOCRIT 34.3 % (37.0-47.0); HGB - HEMOGLOBIN 11.1 g/dL (12.0-16.0); LYMPHOCYTES # (AUTO) 1.5 10^3/uL (1.5-3.5); LYMPHOCYTES % (AUTO) 31.3 %; MEAN CORPUSCULAR HEMOGLOBIN 29.8 pg (27.0-31.0); MEAN CORPUSCULAR HGB CONC 32.4 g/dL (32.0-36.0); MEAN PLATELET VOLUME 9.6 fL (7.9-10.8); MONOCYTES # (AUTO) 0.4 10^3/uL (0.0-1.0); NEUTROPHILS # (AUTO) 2.6 10^3/uL (1.5-6.6); PLT - PLATELET COUNT 165 10^3/uL (130-450); RED BLOOD COUNT 3.73 10^6/uL (4.20-5.40); RED CELL DISTRIBUTION WIDTH 12.1 % (12.0-15.0); WHITE BLOOD COUNT 4.7 x10^3/uL (4.8-10.8)
[2025-03-15 05:54] LABS: CALCIUM 8.8 mg/dL (8.5-10.3); CREATININE 0.9 mg/dL (0.6-1.3); POTASSIUM 4.1 mmol/L (3.5-4.5)
--- NOTE | 2025-03-15 13:23 | PROVIDER PROGRESS NOTE ---
Subjective Prog Note Date Prog Note Date: 03/15/25 Subjective Subjective: has been up with PT today and has walked. still demonstrating a need for SNF. Family at beside. no questions. Current Medications Current Medications Current Medications: Current Medications Generic Name Dose Route Start Last Admin Trade Name Viral PRN Reason Stop Dose Admin Acetaminophen 1,000 mg 03/10/25 22:00 03/15/25 13:19 Acetaminophen 500 Mg Tablet PO 1,000 mg TID ELIZABETH Administration Aspirin 81 mg 03/11/25 09:00 03/15/25 08:48 Aspirin Ec 81 Mg Tablet PO 81 mg DAILY ELIZABETH Administration Atorvastatin Calcium 80 mg 03/11/25 09:00 03/15/25 08:48 Atorvastatin 40 Mg Tablet PO 80 mg DAILY ELIZABETH Administration Calcium Carbonate/Glycine 500 mg 03/11/25 09:00 03/15/25 08:48 Calcium Carb (Oyster Shell) 500 Mg Tablet PO 500 mg DAILY ELIZABETH Administration Carbidopa/Levodopa 1 tab 03/10/25 22:00 03/15/25 13:19 Carbidopa/Levodopa 25 Mg/100 Mg Tablet PO 1 tab TID ELIZABETH Administration Carvedilol 25 mg 03/10/25 21:00 03/15/25 08:48 Carvedilol 12.5 Mg Tablet PO 25 mg BID ELIZABETH Administration Cholecalciferol 25 mcg 03/11/25 09:00 03/15/25 08:48 Cholecalciferol 25 Mcg Tablet PO 25 mcg DAILY ELIZABETH Administration Hydromorphone HCl 0.5 mg 03/10/25 18:15 03/11/25 04:25 Hydromorphone 0.5 Mg/0.5 Ml Syringe IVP 0.5 mg Q2H PRN Administration Pain 8 to 10 Insulin Human Lispro 1 - 5 unit 03/10/25 21:00 03/15/25 11:48 Insulin Lispro 300 Unit/3 Ml Pen SUBQ Not Given 0800,1200,1700,2100 [facility] Protocol Lidocaine 1 patch 03/11/25 16:09 03/15/25 08:48 Lidocaine Patch 4% TOP 1 patch DAILY ELIZABETH Administration Magnesium Oxide 400 mg 03/10/25 21:00 03/14/25 21:08 Magnesium Oxide 400 Mg Tablet PO 400 mg HS ELIZABETH Administration [id number] Ethyl Esters 1 gm 03/11/25 09:00 03/15/25 08:48 [place]-3 Acid Ethyl Esters 1 Gm Capsule PO 1 gm DAILY ELIZABETH Administration Ondansetron HCl 4 mg 03/10/25 18:15 Ondansetron Odt 4 Mg Tablet TL Q6HR PRN Nausea / Vomiting Ondansetron HCl 4 mg 03/10/25 18:15 Ondansetron 4 Mg/2 Ml Vial IVP Q6HR PRN Nausea / Vomiting Oxycodone HCl 2.5 mg 03/11/25 16:41 03/13/25 16:29 Oxycodone 5 Mg Tablet PO 2.5 mg Q4HR PRN Administration Moderate Pain (Level 4-6) Polyethylene Glycol 17 gm 03/12/25 09:00 03/15/25 08:48 Polyethylene Glycol 3350 17 Gm Packet PO 17 gm DAILY ELIZABETH Administration Sodium Chloride 10 ml 03/10/25 18:15 03/14/25 23:47 Sodium Chloride Flush 0.9% 10 Ml Syringe IVP 10 ml PRN PRN Administration NEEDED PER PROVIDER ORDERS Sodium Chloride 10 ml 03/11/25 01:00 03/15/25 08:49 Sodium Chloride Flush 0.9% 10 Ml Syringe IVP 10 ml 0100,0900,1700 ELIZABETH Administration Objective Vital Signs/Intake & Output Vital Signs: Vital Signs x48h Temp Pulse Resp BP Pulse Ox 03/15/25 08:55 63 03/15/25 07:40 36.7 C 55 L 16 125/62 96 Intake & Output: Intake & Output 03/12/25 03/13/25 03/14/25 03/15/25 23:59 23:59 23:59 23:59 Intake Total 1150 / 1150 700 / 700 990 / 990 370 / 370 Output Total 2525 / 2525 2250 / 2250 2200 / 2200 775 / 775 Balance -1375 / -1375 -1550 / -1550 -1210 / -1210 -405 / -405 Objective General Appearance: positive No acute distress and Alert Eyes Bilateral: positive Normal inspection ENT: positive ENT inspection nml Neck: positive Nml inspection Respiratory: positive No respiratory distress and Breath sounds nml Cardiovascular: positive Regular rate & rhythm Abdomen: positive Non-tender and No distention Skin: positive Color nml Extremities: positive No pedal edema Neurologic/Psychiatric: positive Oriented x3 Lab Results 03/15/25 05:20 03/15/25 05:20 Other Labs: Lab Results x24hrs 03/15/25 03/15/25 03/15/25 Range/Units 11:34 07:39 05:20 WBC 4.7 L (4.8-10.8) x10^3/uL RBC 3.73 L (4.20-5.40) 10^6/uL Hgb 11.1 L (12.0-16.0) g/dL Hct 34.3 L (37.0-47.0) % MCV 92.0 (81.0-99.0) fL MCH 29.8 (27.0-31.0) pg MCHC 32.4 (32.0-36.0) g/dL RDW 12.1 (12.0-15.0) % Plt Count 165 (130-450) 10^3/uL MPV 9.6 (7.9-10.8) fL Neut # (Auto) 2.6 (1.5-6.6) 10^3/uL Lymph # (Auto) 1.5 (1.5-3.5) 10^3/uL [place] # (Auto) 0.4 (0.0-1.0) 10^3/uL Eos # (Auto) 0.2 (0.0-0.7) 10^3/uL Baso # (Auto) 0.0 (0.0-0.1) 10^3/uL Absolute Nucleated RBC 0.00 x10^3/uL Nucleated RBC % 0.0 /100WBC Sodium 136 (135-145) mmol/L Potassium 4.1 (3.5-4.5) mmol/L Chloride 102 (101-111) mmol/L Carbon Dioxide 27 (21-32) mmol/L Anion Gap 7.0 (6-13) BUN 21 H (6-20) mg/dL Creatinine 0.9 (0.6-1.3) mg/dL Estimated GFR (MDRD) 61 L (>89) Glucose 104 (74-104) mg/dL POC Whole Bld Glucose 139 137 (70-100) mg/dL Calcium 8.8 (8.5-10.3) mg/dL 03/14/25 03/14/25 Range/Units 20:53 16:49 WBC (4.8-10.8) x10^3/uL RBC (4.20-5.40) 10^6/uL Hgb (12.0-16.0) g/dL Hct (37.0-47.0) % MCV (81.0-99.0) fL MCH (27.0-31.0) pg MCHC (32.0-36.0) g/dL RDW (12.0-15.0) % Plt Count (130-450) 10^3/uL MPV (7.9-10.8) fL Neut # (Auto) (1.5-6.6) 10^3/uL Lymph # (Auto) (1.5-3.5) 10^3/uL [place] # (Auto) (0.0-1.0) 10^3/uL Eos # (Auto) (0.0-0.7) 10^3/uL Baso # (Auto) (0.0-0.1) 10^3/uL Absolute Nucleated RBC x10^3/uL Nucleated RBC % /100WBC Sodium (135-145) mmol/L Potassium (3.5-4.5) mmol/L Chloride (101-111) mmol/L Carbon Dioxide (21-32) mmol/L Anion Gap (6-13) BUN (6-20) mg/dL Creatinine (0.6-1.3) mg/dL Estimated GFR (MDRD) (>89) Glucose (74-104) mg/dL POC Whole Bld Glucose 185 181 (70-100) mg/dL Calcium (8.5-10.3) mg/dL Assessment/Plan Problem List (1) Intractable pain: Impression: Admitted from the ED for severe pain in the left hip. She was unable to ambulate after 3 different doses of IV pain medication. Since being admitted she has had 1 dose of IV Dilaudid. She is doing very well otherwise on scheduled Tylenol 3 times daily. She has some pain in her right chest wall as well. And I have offered some topical Lidoderm for this. I added oxycodone 2.5mg per dose. She is using the oxycodone intermittently and seems to be improving somewhat. RN has been able to classroom technology coach her to acheive 1 L on IS. PT and OT recommend SNF. Family and patient amenable. Through the ACO, she can go to SNF with a waiver of the [place] rule, and social work is helping patient and family with this. She has been accepted at [place] [facility], awaiting auth through [facility] (2) Right rib fracture: Impression: new and old rib fractures. Acute fx is right 8th rib. she has some pain with palpation of her right posterolateral chest wall. IS pull increasing to 1L I have offered her topical pain relief for this. Her oxygen saturation remains normal on room air. She is not coughing. see above discussion of her pain. Qualifiers: Encounter type: initial encounter Fracture type: closed Rib fracture type: single rib Qualified Code(s): S22.31XA - Fracture of one rib, right side, initial encounter for closed fracture (3) Left hip pain: Impression: There was some question about possible left intertrochanteric femur fracture, and she was admitted for intractable hip pain which caused her to be unable to ambulate. I have discussed this with DR Maki, ortho surgery. He does not believe there is a fracture there, and recommends followup in ortho clinic in about one week for repeat left hip X ray. She did not have severe pain with ambulation. I think this plan is very reasonable. (4) Repeated falls: Impression: She has been falling very frequently at home. Her is also mobility impaired and unable to assist her. The pain from previous fractures seems to be precipitating more falls. PT and OT have recommended SNF. Have spoken with transition planning to assist with SNF placement. (5) Parkinson disease with dyskinesia: Impression: Home Sinemet has been restarted. Qualifiers: Fluctuating manifestations: unspecified whether manifestations fluctuate Qualified Code(s): G20.B1 - Parkinson's disease with dyskinesia, without mention of fluctuations (6) Diabetes mellitus with hyperglycemia: Impression: on metformin at home. Blood sugars 150's today. has needed minimal lispro. A1C 6.1%. Will continue with SSI low scale as needed to control blood sugars and plan to resume metformin and Januvia on dc to home or SNF. Qualifiers: Diabetes mellitus type: type 2 Diabetes mellitus long term acute care registered nurse insulin use: without long term acute care registered nurse use Qualified Code(s): E11.65 - Type 2 diabetes mellitus with hyperglycemia (7) Essential (primary) hypertension: Impression: She is on HCTZ 25mg and Losartan 25mg daily. These home meds have been restarted. Blood pressures were low, I have therefore held these meds. (8) Acute urinary retention: Impression: recommend void trial either in several days or at SNF. Lloyd placed 03/11. I have spent 26 minutes in the care of this patient today. This includes time [id number], review and ordering of diagnostic imaging and laboratory studies. Monitoring the patient's signs symptoms, evaluation of medication effectiveness and patient's response to treatment.
[2025-03-16 16:35] VITALS: O2SAT 98
--- NOTE | 2025-03-16 17:45 | PROVIDER PROGRESS NOTE ---
Subjective Prog Note Date Prog Note Date: 03/16/25 Subjective Subjective: Taking an after lunch naps. Wakes for a brief moment. no complaints. Current Medications Current Medications Current Medications: Current Medications Generic Name Dose Route Start Last Admin Trade Name Freq PRN Reason Stop Dose Admin Acetaminophen 1,000 mg 03/10/25 22:00 03/16/25 13:18 Acetaminophen 500 Mg Tablet PO 1,000 mg TID ELIZABETH Administration Aspirin 81 mg 03/11/25 09:00 03/16/25 09:08 Aspirin Ec 81 Mg Tablet PO 81 mg DAILY ELIZABETH Administration Atorvastatin Calcium 80 mg 03/11/25 09:00 03/16/25 09:08 Atorvastatin 40 Mg Tablet PO 80 mg DAILY ELIZABETH Administration Calcium Carbonate/Glycine 500 mg 03/11/25 09:00 03/16/25 09:08 Calcium Carb (Oyster Shell) 500 Mg Tablet PO 500 mg DAILY ELIZABETH Administration Carbidopa/Levodopa 1 tab 03/10/25 22:00 03/16/25 13:19 Carbidopa/Levodopa 25 Mg/100 Mg Tablet PO 1 tab TID ELIZABETH Administration Carvedilol 25 mg 03/10/25 21:00 03/16/25 09:08 Carvedilol 12.5 Mg Tablet PO 25 mg BID ELIZABETH Administration Cholecalciferol 25 mcg 03/11/25 09:00 03/16/25 09:08 Cholecalciferol 25 Mcg Tablet PO 25 mcg DAILY ELIZABETH Administration Insulin Human Lispro 1 - 5 unit 03/10/25 21:00 03/16/25 11:54 Insulin Lispro 300 Unit/3 Ml Pen SUBQ 1 unit 0800,1200,1700,2100 ELIZABETH Administration Protocol Lidocaine 1 patch 03/11/25 16:09 03/16/25 09:08 Lidocaine Patch 4% TOP 1 patch DAILY ELIZABETH Administration Magnesium Oxide 400 mg 03/10/25 21:00 03/15/25 21:10 Magnesium Oxide 400 Mg Tablet PO 400 mg HS ELIZABETH Administration Fdjlp-[id number] Ethyl Esters 1 gm 03/11/25 09:00 03/16/25 09:08 Grassflat-3 Acid Ethyl Esters 1 Gm Capsule PO 1 gm DAILY ELIZABETH Administration Ondansetron HCl 4 mg 03/10/25 18:15 Ondansetron Odt 4 Mg Tablet TL Q6HR PRN Nausea / Vomiting Ondansetron HCl 4 mg 03/10/25 18:15 Ondansetron 4 Mg/2 Ml Vial IVP Q6HR PRN Nausea / Vomiting Oxycodone HCl 2.5 mg 03/11/25 16:41 03/13/25 16:29 Oxycodone 5 Mg Tablet PO 2.5 mg Q4HR PRN Administration Moderate Pain (Level 4-6) Polyethylene Glycol 17 gm 03/12/25 09:00 03/16/25 09:08 Polyethylene Glycol 3350 17 Gm Packet PO 17 gm DAILY ELIZABETH Administration Sodium Chloride 10 ml 03/10/25 18:15 03/14/25 23:47 Sodium Chloride Flush 0.9% 10 Ml Syringe IVP 10 ml PRN PRN Administration NEEDED PER PROVIDER ORDERS Sodium Chloride 10 ml 03/11/25 01:00 03/16/25 15:55 Sodium Chloride Flush 0.9% 10 Ml Syringe IVP 10 ml 0100,0900,1700 ELIZABETH Administration Objective Vital Signs/Intake & Output Vital Signs: Vital Signs x48h Temp Pulse Resp BP Pulse Ox 03/16/25 16:34 36.5 C 58 L 18 151/71 H 98 Intake & Output: Intake & Output 03/13/25 03/14/25 03/15/25 03/16/25 23:59 23:59 23:59 23:59 Intake Total 700 / 700 990 / 990 1270 / 1270 910 / 910 Output Total 2250 / 2250 2200 / 2200 2300 / 2300 875 / 875 Balance -1550 / -1550 -1210 / -1210 -1030 / -1030 35 / 35 Objective General Appearance: positive No acute distress and Alert Eyes Bilateral: positive Normal inspection ENT: positive ENT inspection nml Neck: positive Nml inspection Respiratory: positive No respiratory distress and Breath sounds nml Cardiovascular: positive Regular rate & rhythm Abdomen: positive Non-tender and No distention Skin: positive Color nml Extremities: positive No pedal edema Neurologic/Psychiatric: positive Oriented x3 Lab Results 03/15/25 05:20 03/15/25 05:20 Other Labs: Lab Results x24hrs 03/16/25 03/16/25 03/16/25 Range/Units 16:42 11:49 07:33 POC Whole Bld Glucose 108 175 126 (70-100) mg/dL 03/15/25 Range/Units 21:00 POC Whole Bld Glucose 156 (70-100) mg/dL Assessment/Plan Problem List (1) Intractable pain: Impression: Admitted from the ED for severe pain in the left hip. She was unable to ambulate after 3 different doses of IV pain medication. Since being admitted she has had 1 dose of IV Dilaudid. She is doing very well otherwise on scheduled Tylenol 3 times daily. She has some pain in her right chest wall as well. And I have offered some topical Lidoderm for this. I added oxycodone 2.5mg per dose. She is using the oxycodone intermittently and seems to be improving somewhat. RN has been able to dance coach her to acheive 1 L on IS. PT and OT recommend SNF. Family and patient amenable. Through the [facility], she can go to SNF with a waiver of the 3 MN rule, and social work is helping patient and family with this. She has been accepted at [facility] acute care, awaiting auth through [facility], then changes made and she will go to [facility]. This is much better for patient and family (2) Right rib fracture: Impression: new and old rib fractures. Acute fx is right 8th rib. she has some pain with palpation of her right posterolateral chest wall. IS pull increasing to 1L I have offered her topical pain relief for this. Her oxygen saturation remains normal on room air. She is not coughing. see above discussion of her pain. Qualifiers: Encounter type: initial encounter Fracture type: closed Rib fracture type: single rib Qualified Code(s): S22.31XA - Fracture of one rib, right side, initial encounter for closed fracture (3) Left hip pain: Impression: There was some question about possible left intertrochanteric femur fracture, and she was admitted for intractable hip pain which caused her to be unable to ambulate. I have discussed this with DR Maki, ortho surgery. He does not believe there is a fracture there, and recommends followup in ortho clinic in about one week for repeat left hip X ray. She did not have severe pain with ambulation. I think this plan is very reasonable. (4) Repeated falls: Impression: She has been falling very frequently at home. Her is also mobility impaired and unable to assist her. The pain from previous fractures seems to be precipitating more falls. PT and OT have recommended SNF. Have spoken with transition planning to assist with SNF placement. (5) Parkinson disease with dyskinesia: Impression: Home Sinemet has been restarted. Qualifiers: Fluctuating manifestations: unspecified whether manifestations fluctuate Qualified Code(s): G20.B1 - Parkinson's disease with dyskinesia, without mention of fluctuations (6) Diabetes mellitus with hyperglycemia: Impression: on metformin at home. Blood sugars 125-175 today. has needed minimal lispro. A1C 6.1%. Will continue with SSI low scale as needed to control blood sugars and plan to resume metformin and Januvia on dc to home or SNF. 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 These home meds have been restarted. Blood pressures were low, I have therefore held these meds. (8) Acute urinary retention: Impression: recommend void trial either in several days or at SNF. Lloyd placed 03/11. I have spent 25 minutes in the care of this patient today. This includes time [id number], review and ordering of diagnostic imaging and laboratory studies. Monitoring the patient's signs symptoms, evaluation of medication effectiveness and patient's response to treatment.
--- NOTE | 2025-03-16 17:47 | Discharge Summary ---
"Discharge Summary Admit Date: 03/10/25 Discharge Date: 03/16/25 Discharging Provider: Maria C Cordero PA-C Primary Care Provider: Loida Mock MD Code Status: Attempt Resuscitation (no CPR, ok to intubate) DIAGNOSES Discharge Diagnoses with Status of Each Condition: Intractable pain: Controlled with minimal amounts of narcotics. Right rib fracture: Respiratory status stable, healing. Left hip pain: Fracture ruled out. Should follow-up outpatient with orthopedics for repeat x-ray. Frequent falls: To SNF for rehab and fall prevention. Parkinson's disease: Stable on Sinemet. Diabetes mellitus: Resume metformin and Januvia. Recent hemoglobin A1c 6.1% Essential hypertension: Meds held her systolic blood pressure has been less than 160 for the entirety of her admission Acute urinary retention: Lloyd placed 03/11. Recommend void trial within the week. HPI History of Present Illness: 75-year-old female H significant for CAD, Parkinson's dementia, diabetes managed with Oral antidiabetics presents after fall. Family reports that she has fairly frequent falls but of not been worked up and that she has fallen twice in the past 16 hours. She has visible injuries to her left chin and pain in her pelvis and hip on the left and right-sided rib pain. In the ER, CT head was performed which showed no acute abnormality. CT C-spine no acute abnormality. CT chest with nondisplaced right posterior eighth rib fractures as well as age-indeterminate compression fracture involving L1. It also shows subacute chronic appearing nondisplaced fracture involving left 5th through 7th ribs. CT abdomen/pelvis shows minimally displaced/nondisplaced fractures involving right posterior lateral 7th and 8th rib as well as a Linear lucency suspicious for incomplete fracture of greater trochanter. X-ray foot with no acute abnormality. Ortho was contacted by ER provider, and they reported that this is likely nonoperative. Pain control was attempted with multiple IV opiates without effect. Patient is unable to walk due to pain. Hospitalist was contacted for observation for intractable pain secondary to these fracture CONSULTS | PROCEDURES Procedures: Head CT: No acute intracranial pathology C-spine CT: No acute displaced fracture or traumatic subluxation. Chest CT: Nondisplaced right posterior lateral eighth rib fracture with adjacent contusion of the right lung. No significant pleural effusion no pneumothorax dependent atelectasis is seen. No mediastinal hematoma. No pericardial effusion moderate to severe three-vessel coronary artery disease. Age- indeterminate compression fracture of the L1 vertebral body. Subacute to chronic appearing nondisplaced fracture involving the left posterior lateral 5th through 7th ribs. Abdomen pelvis CT: No solid organ injury. Rib fractures as above. Also an old injury in the right posterior lateral ninth rib. L1 fracture as above. Minimally displaced left L3 transverse process fracture. There was a question of a possible superior left greater trochanteric fracture however this was ruled out by orthopedics. Foot x-ray, right. Negative. HOSPITAL COURSE Hospital Course: (1) Intractable pain: Admitted from the ED for severe pain in the left hip. She was unable to ambulate after 3 different doses of IV pain medication. Since being admitted she has had 1 dose of IV Dilaudid. She is doing very well otherwise on scheduled Tylenol 3 times daily. She has some pain in her right chest wall as well. And I have offered some topical Lidoderm for this. I added oxycodone 2.5mg per dose. She is using the oxycodone intermittently and seems to be improving somewhat. RN has been able to wellness coach her to acheive 1 L on IS. PT and OT recommend SNF. Family and patient amenable. (2) Right rib fracture: new and old rib fractures. Acute fx is right 8th rib. she has some pain with palpation of her right posterolateral chest wall. IS pull increasing to 1L I have offered her topical pain relief for this. Her oxygen saturation remains normal on room air. She is not coughing. see above discussion of her pain. (3) Left hip pain: There was some question about possible left intertrochanteric femur fracture, and she was admitted for intractable hip pain which caused her to be unable to ambulate. I have discussed this with DR Maki, ortho surgery. He does not believe there is a fracture there, and recommends followup in ortho clinic in about one week for repeat left hip X ray. She did not have severe pain with ambulation. I think this plan is very reasonable. (4) Repeated falls: She has been falling very frequently at home. Her is also mobility impaired and unable to assist her. The pain from previous fractures seems to be precipitating more falls. PT and OT have recommended SNF. Have spoken with transition planning to assist with SNF placement. (5) Parkinson disease with dyskinesia: Home Sinemet has been restarted. Tremors have been non existent on this. (6) Diabetes mellitus with hyperglycemia: Impression: on metformin at home. has needed minimal lispro. A1C 6.1%. Will continue with SSI low scale as needed to control blood sugars and plan to resume metformin and Januvia on dc to home or SNF. (7) Essential (primary) hypertension: She is on HCTZ 25mg and Losartan 25mg daily at home. Blood pressures were low, I have therefore held these meds- did not restart on dc. I have continued her Coreg. (8) Acute urinary retention: recommend void trial either in several days or at SNF. Lloyd placed 03/11. ALLERGIES Allergies Allergy/AdvReac Type Severity Reaction Status Date / Time No Known Drug Allergies Allergy Verified 03/10/25 13:12 MEDICATIONS Ambulatory Orders Medication Instructions Recorded Confirmed fish oil-dha-epa 1,200 mg-144 1 ea PO DAILY 08/06/14 03/11/25 mg-216 mg capsule sitagliptin phosphate 100 mg 100 mg PO DAILY 12/20/18 03/11/25 tablet (Januvia) aspirin 81 mg tablet,delayed 81 mg PO DAILY 02/09/21 03/11/25 release cholecalciferol (vitamin D3) 25 50 mcg PO DAILY 02/09/21 03/11/25 mcg (1,000 unit) tablet magnesium oxide 400 mg (241.3 mg 400 mg PO HS 02/09/21 03/11/25 magnesium) tablet carbidopa 25 mg-levodopa 100 mg 1 tab PO TID #270 tabs 01/05/25 03/11/25 tablet (Sinemet) carvedilol 25 mg tablet (Coreg) 25 mg PO BID #180 tabs 01/05/25 03/11/25 atorvastatin 80 mg tablet (Lipitor) 80 mg PO DAILY #90 tabs 02/28/25 03/11/25 acetaminophen 500 mg tablet 1,000 mg (2 x 500 mg) PO TID #90 03/16/25 tabs aspirin 81 mg tablet,delayed 81 mg PO DAILY #30 tabs 03/16/25 release calcium carbonate (Oyster Shell 500 mg PO DAILY #30 tabs 03/16/25 Calcium 500) lidocaine 4 % topical patch 1 patch topical DAILY #30 ea 03/16/25 metformin 500 mg tablet 500 mg PO DAILY #30 tabs 03/16/25 oxycodone 5 mg tablet 2.5 mg (1/2 x 5 mg) PO Q4HR PRN 03/16/25 Moderate Pain (Level 4-6) #30 tabs polyethylene glycol 3350 17 gram 17 g PO DAILY #100 ea 03/16/25 oral powder packet PHYSICAL EXAM AT DISCHARGE Vital Signs: Vital Signs x48h Temp Pulse Resp BP Pulse Ox 03/16/25 16:34 36.5 C 58 L 18 151/71 H 98 Physical Exam Other/Comments: General Appearance: positive No acute distress and Alert Eyes Bilateral: positive Normal inspection ENT: positive ENT inspection nml Neck: positive Nml inspection Respiratory: positive No respiratory distress and Breath sounds nml Cardiovascular: positive Regular rate & rhythm Abdomen: positive Non-tender and No distention Skin: positive Color nml Extremities: positive No pedal edema Neurologic/Psychiatric: positive Oriented x3 LABS 03/15/25 05:20 03/15/25 05:20 FOLLOW UP Follow Up: PCP on SNF departure. Dr Eduardo Maki has requested ortho clinic followup to [facility] in one week. TIME SPENT Time Spent in Discharge (Minutes): 45 Discharge Plan Discharge Patient Disposition: [facility] DC/Xfer Condition: Stable Prescriptions: New lidocaine 4 % Adhesive Patch,Medicated 1 patch topical DAILY Qty: 30 0RF polyethylene glycol 3350 17 gram Powder In Packet 17 g PO DAILY Qty: 100 0RF aspirin 81 mg Tablet,Delayed Release (Dr/Ec) 81 mg PO DAILY Qty: 30 0RF acetaminophen 500 mg Tablet 1,000 mg PO TID Qty: 90 0RF calcium carbonate [Oyster Shell Calcium 500] 500 mg calcium (1,250 mg) Tablet 500 mg PO DAILY Qty: 30 0RF oxycodone 5 mg Tablet 2.5 mg PO Q4HR PRN (Reason: Moderate Pain (Level 4-6)) Qty: 30 0RF metformin 500 mg tablet 500 mg PO DAILY Qty: 30 2RF Continued carbidopa-levodopa [Sinemet] 25-100 mg tablet 1 tab PO TID Qty: 270 1RF carvedilol [Coreg] 25 mg tablet 25 mg PO BID Qty: 180 3RF atorvastatin [Lipitor] 80 mg tablet 80 mg PO DAILY Qty: 90 2RF fish oil-dha-epa 1 EACH capsule 1 ea PO DAILY Januvia 100 MG tablet 100 mg PO DAILY aspirin 81 MG tablet,delayed release (DR/EC) 81 mg PO DAILY magnesium oxide 400 MG tablet 400 mg PO HS cholecalciferol (vitamin D3) 25 MCG tablet 50 mcg PO DAILY Discontinued calcium carbonate-vitamin D3 1 EACH tablet 1 ea PO DAILY coenzyme Q10 [Co Q-10] 100 mg capsule 300 mg PO DAILY choline 800 mg capsule 2,400 mg PO DAILY multivit with min-folic acid [Adult Multivitamin Gummies] 200 mcg tablet,chewable 1 tab PO DAILY hydrochlorothiazide 25 mg tablet 25 mg PO DAILY losartan 25 mg tablet 25 mg PO DAILY metformin [Glucophage XR] 500 mg tablet extended release 24 hr 1,500 mg PO DAILY acetaminophen 500 mg capsule 1,000 mg PO Q6H PRN (Reason: fever or pain) Patient Comments: arthritis pain Activity Restrictions: Activity as Tolerated Diet: Regular Print Language: Argentine Patient Instructions: ED Prevention Fall Stand Alone Forms: SNF Discharge Follow-up Care: Loida Mock MD [Primary Care Provider] -"
[2025-03-17 08:18] VITALS: BP 142/66; TEMP 98.1
== END 2025-03-17 10:00 | DRG 556 ==
LOC: MS3 13:07 → ED 13:07 → MS3 18:07
PROVIDERS: ADMIT Nurse Practitioner Acute Care; ATTEND Nurse Practitioner Acute Care
DX: S22.41XA Multiple fractures of ribs, right side, initial encounter for closed fracture; N18.9 Chronic kidney disease, unspecified; E78.5 Hyperlipidemia, unspecified; F02.B0 Dementia in other diseases classified elsewhere, moderate, without behavioral disturbance, psychotic disturbance, mood disturbance, and anxiety; I25.10 Atherosclerotic heart disease of native coronary artery without angina pectoris; S22.31XA Fracture of one rib, right side, initial encounter for closed fracture; S09.93XA Unspecified injury of face, initial encounter; S72.115A Nondisplaced fracture of greater trochanter of left femur, initial encounter for closed fracture; R33.9 Retention of urine, unspecified; G20.B1 Parkinson's disease with dyskinesia, without mention of fluctuations; Z79.82 Long term (current) use of aspirin; M25.552 Pain in left hip; R29.6 Repeated falls; I12.9 Hypertensive chronic kidney disease with stage 1 through stage 4 chronic kidney disease, or unspecified chronic kidney disease; W19.XXXA Unspecified fall, initial encounter; E11.22 Type 2 diabetes mellitus with diabetic chronic kidney disease; Z79.899 Other long term (current) drug therapy; H91.93 Unspecified hearing loss, bilateral; E11.65 Type 2 diabetes mellitus with hyperglycemia; R10.2 Pelvic and perineal pain; S32.039A Unspecified fracture of third lumbar vertebra, initial encounter for closed fracture; Z79.84 Long term (current) use of oral hypoglycemic drugs